=== PATIENT | female | born 1940 | race Caucasian/White ===

== ENCOUNTER 2017-08-04 20:30 | Outpatient (CLI) | payer MEDICARE, BC ==
--- OUTSIDE RECORDS SUMMARY | 2017-08-05 08:23 | XMS | Clinical Summary ---
:1940 Author Organization [facility] Address [address] [place] [address] Phone Care Team Providers Name Role Phone , Primary Care Provider Unavailable Allergies No Known Allergies Current Medications Not on file Active Problems Not on file Social History Tobacco Use Types Packs/Day Years Used Date Never Smoker Alcohol Use Drinks/Week oz/Week Comments Yes socially Sex Assigned at Date Recorded Not on file Last Filed Vital Signs Vital Sign Reading Time Taken Blood Pressure 148/71 06/03/2015 9:50 PM CDT Pulse 70 06/03/2015 9:50 PM CDT Temperature 36.7 C (98 F) 06/03/2015 9:50 PM CDT Respiratory Rate 20 06/03/2015 9:50 PM CDT Oxygen Saturation 95% 06/03/2015 9:50 PM CDT Inhaled Oxygen Concentration - - Weight 68.2 kg (150 lb 5 oz) 06/03/2015 9:50 PM CDT Height - - Body Mass Index - - Plan of Treatment Not on file Results Not on filefrom Last 3 Months
--- OUTSIDE RECORDS SUMMARY | 2017-08-05 08:23 | XMS | Clinical Summary ---
:1940 Author Organization [facility] Address [address] [place] [address] Phone Care Team Providers Name Role Phone , Primary Care Provider Unavailable Allergies Not on File Current Medications Not on file Active Problems Not on file Social History Tobacco Use Types Packs/Day Years Used Date Never Assessed Sex Assigned at Date Recorded Not on file Last Filed Vital Signs Not on file Plan of Treatment Not on file Results Not on filefrom Last 3 Months
== END 2017-08-04 20:31 | disposition home or self-care (01) ==
LOC: SLEEPLAB 20:30
PROVIDERS: ATTEND Internal Medicine
DX: G47.33 Obstructive sleep apnea (adult) (pediatric) (principal); R06.83 Snoring; F32.9 Major depressive disorder, single episode, unspecified; G47.00 Insomnia, unspecified
CPT/HCPCS: 95810

== ENCOUNTER 2017-08-19 20:30 | Outpatient (CLI) | payer MEDICARE, BC ==
--- OUTSIDE RECORDS SUMMARY | 2017-08-29 13:26 | XMS | Clinical Summary ---
:1940 Author Organization [facility] Address [address] [place] [address] Phone Care Team Providers Name Role Phone [...]
--- OUTSIDE RECORDS SUMMARY | 2017-08-29 13:26 | XMS | Clinical Summary ---
:1940 Author Organization [facility] Address [address] [place] [address] Phone Care Team Providers Name Role Phone [...]
== END 2017-08-19 20:31 | disposition home or self-care (01) ==
LOC: SLEEPLAB 20:30
PROVIDERS: ATTEND Internal Medicine
DX: G47.33 Obstructive sleep apnea (adult) (pediatric) (principal)
CPT/HCPCS: 95811

== ENCOUNTER 2017-09-21 13:16 | Outpatient (CLI) | payer MEDICARE, BC ==
--- OUTSIDE RECORDS SUMMARY | 2017-09-21 14:53 | XMS | Clinical Summary ---
:1940 Author Organization [facility] Address [address] [place] [address] Phone Care Team Providers Name Role Phone [...]
--- NOTE | 2017-09-21 15:41 | CT ---
CT OF THE CERVICAL SPINE: Date: 09-21-17 History: Cervical radiculopathy, right arm radiculopathy. Technique: Serial axial CT imaging 2 mm intervals from skull base through lung apices without contra st. Coronal and sagittal reformatted imaging obtained. FINDINGS: Incompletely imaged bilateral cochlear implants are present with associated partially imaged bilater al canal wall up mastoidectomies. Evaluation for central canal and/or neural foraminal stenosis is limited on routine CT. The occipital condyles, dense, C1-2 articulation, craniocervical junction, and cervicothoracic junct ion demonstrate no acute findings. No anterolisthesis or retrolisthesis is seen. There is mid cervical spine levoscoliosis present. The re is mild degenerative change at the atlantoaxial interspace. C2-3: No osseous cause of significant central canal or neural foraminal stenosis. C3-4: Mild right sided facet and uncal vertebral osteophyte formation with probable mild right sided neural foraminal stenosis. There is no osseous cause of significant central canal or left neural fo raminal stenosis. C4-5: Mild bilateral facet hypertrophy with no osseous cause of significant central canal or neural foraminal stenosis. C5-6: No osseous cause of significant central canal or neural foraminal stenosis. C6-7: No osseous cause of significant central canal or neural foraminal stenosis. C7-T1: There is prominent facet hypertrophic change on the left with mild associated left neural for aminal stenosis. There is no osseous cause of significant central canal or right neural foraminal st enosis. No acute osseous abnormality is seen. There is atherosclerotic calcification involving the proximal ECA on the right and the proximal ICA on the left. IMPRESSION: Multilevel degenerative change within the cervical spine as detailed above. If further evaluation fo r central canal and/or neural foraminal stenosis is clinically indicated, cervical spine CT myelogra m suggested. POS: [facility]
== END 2017-09-21 13:17 | disposition home or self-care (01) ==
LOC: TBSIIMAG 13:16
PROVIDERS: ATTEND Neurological Surgery
DX: M47.22 Other spondylosis with radiculopathy, cervical region (principal)
CPT/HCPCS: 72125

== ENCOUNTER 2017-10-06 12:26 | Outpatient (CLI) | payer MEDICARE, BC ==
--- NOTE | 2017-10-06 15:10 | RAD ---
ARTHROGRAM RIGHT SHOULDER: Date: 10-06-17 History: 77-year-old female with right shoulder pain. Patient has bilateral cochlear implants which preclude M RI. Technique: Signed informed consent obtained. Patient was placed supine on fluoroscopy table. Anterior skin of [facility] shoulder was prepped and draped in the usual sterile fashion. 25 gauge needle used to apply buffe red lidocaine superficial and deeply. 22 gauge spinal needle advanced into the intracapsular space at the anterior superior portion of the glenohumeral joint under brief, intermittent fluoroscopy. A tot al of 10 ml of normal saline solution containing dilute Isovue iodinated contrast, small amount of Li docaine and tiny amount of epinephrine was injected. Needle was removed. The patient tolerated the pr ocedure well. No complications. Patient was sent to CT. FINDINGS: [employer] images demonstrate a small focal calcification in the soft tissues directly inferiorly to the g lenohumeral joint. No high grade degenerative osseous changes of the glenohumeral joint. Mild to mode rate DJD of AC joint. No fracture or dislocation. Osteopenia. Post injection fluoroscopic images demonstrate good distribution of contrast within the shoulder join t capsule. There is abnormal extension of the contrast material into the subacromial/subdeltoid bursa . IMPRESSION: 1. Successful right shoulder arthrogram. 2. Full thickness rotator cuff tear. POS: [facility]
--- NOTE | 2017-10-06 15:44 | CT ---
CT ARTHROGRAM OF THE RIGHT SHOULDER 10/06/17 INDICATION: Right shoulder pain. FINDINGS: There is a full thickness tear of the supraspinatus with retraction of the tendon to the level of the glenohumeral joint. There is severe atrophy of the supraspinatus tendon. There is also full thicknes s tear component involving the anterior infraspinatus. There is mild muscular atrophy of the infraspi natus. There is some contrast extending into the anterior musculotendinous junction of the infraspina tus consistent with some tendon delamination from the full thickness tear of the anterior infraspinat us. Teres minor and subscapularis are intact. The biceps tendon is intact and is seen within the bici pital groove. There is moderate AC joint osteoarthrosis. There is a type II acromion. There is contra st seen throughout the subacromial subdeltoid bursa. The glenohumeral articular surface demonstrates some mild diffuse chondrosis. Visualized right lung is clear. IMPRESSION: 1. Massive rotator cuff tear with severe supraspinatus and mild infraspinatus muscular atrophy. 2. Moderate AC joint osteoarthrosis. 3. Mild glenohumeral chondrosis. POS: [facility]
== END 2017-10-06 12:27 | disposition home or self-care (01) ==
LOC: RAD 12:26
PROVIDERS: ATTEND Orthopaedic Surgery
DX: M25.511 Pain in right shoulder (principal); S46.011A Strain of muscle(s) and tendon(s) of the rotator cuff of right shoulder, initial encounter; M19.011 Primary osteoarthritis, right shoulder; M24.111 Other articular cartilage disorders, right shoulder
CPT/HCPCS: 23350

== ENCOUNTER 2018-01-13 16:19 | Outpatient (CLI) | payer MEDICARE, BC ==
[~2018-01-13 16:19] MED LIST: Iopamidol 370 76% 100 ML VIAL ONE
== END 2018-01-13 16:20 | disposition home or self-care (01) ==
LOC: BICCT 16:19
PROVIDERS: ATTEND Psychiatry & Neurology Neurology
DX: G25.2 Other specified forms of tremor (principal); G93.89 Other specified disorders of brain
CPT/HCPCS: 70496; 70498

== ENCOUNTER 2018-02-22 10:54 | Outpatient (CLI) | payer MEDICARE, BC | END 2018-02-22 10:55 | disposition home or self-care (01) | LOC: BICMAMMO 10:54 | PROVIDERS: ATTEND Obstetrics & Gynecology | DX: Z12.31 Encounter for screening mammogram for malignant neoplasm of breast (principal) | CPT/HCPCS: 77063; 77067 ==

== ENCOUNTER 2018-08-23 11:02 | Outpatient (CLI) | payer MEDICARE, BC ==
--- NOTE | 2018-08-23 13:11 | CT ---
CT LUMBAR SPINE WITHOUT CONTRAST: HISTORY: Pseudoarthrosis of the lumbar spine. COMPARISON: 08/26/2016 FINDINGS: There is stable posterior fusion hardware from L3 through S1. No perihardware lucency. Stable poste rior bone graft material. There is 3.1 mm of retrolisthesis of L2 upon L1, and 3.2 mm of anterolisth esis of L4 upon L5. Stable severe compression fracture with regards to L1. Stable associated vertebral plana and retropu lsion. Symmetric attenuation of the psoas muscles. The visualized solid organs have appropriate attenuation . No retroperitoneal mass, lymphadenopathy, or hematoma. Limited evaluation of the contents of the central spinal canal and neural foramina. A dorsal column stimulator is identified. The wires enter the thecal sac at approximately the T12-T1 1 disk space. T11-T12: No high-grade central canal stenosis or high-grade foraminal narrowing. T12-L1: No high-grade central canal stenosis. Moderate bilateral foraminal narrowing. L1: Moderate central canal stenosis due to retropulsion. L1-L2: Vacuum disk phenomenon. Moderate central canal stenosis. Severe right and moderate left for aminal narrowing. L2-L3: Vacuum disk phenomenon. No high-grade central canal stenosis. Moderate bilateral foraminal narrowing. L3-L4: Mild loss of disk space height. No significant central canal stenosis. Mild right and left foraminal narrowing. L4-L5: Posterior laminectomy defect. Bone graft material is identified at the operative site. No h igh-grade central canal stenosis. Mild bilateral foraminal narrowing. L5-S1: Vacuum disk phenomenon. There appears to be a central/right subarticular disk protrusion. T here maybe associated scar tissue. Ligamentum flavum thickening is noted. There may be mild to moder ate central canal stenosis. Evaluation is limited. Moderate right and moderate to severe left jose luis inal narrowing. IMPRESSION: 1. Stable fusion hardware involving the L3, L4, L5, and S1 levels. The left transpedicular screw is at the anterior margin of S1, similar to the previous examination. No definite perihardware lucency . 2. Stable compression fracture at L1 with associated retropulsion and resultant moderate central can al stenosis. 3. Significant neural foraminal narrowing at multiple levels, as detailed above. 4. Possible significant stenosis of the ventral thecal sac and the right subarticular zone at the L5 -S1 level. Abnormal soft tissue density may be due to disk material and/or scar tissue. POS: [facility]
== END 2018-08-23 11:03 | disposition home or self-care (01) ==
LOC: BICCT 11:02
PROVIDERS: ATTEND Anesthesiology Pain Medicine
DX: S32.009K Unspecified fracture of unspecified lumbar vertebra, subsequent encounter for fracture with nonunion (principal); M99.83 Other biomechanical lesions of lumbar region; M48.061 Spinal stenosis, lumbar region without neurogenic claudication; Z98.1 Arthrodesis status
CPT/HCPCS: 72131

== ENCOUNTER 2019-03-03 09:54 | Outpatient (CLI) | payer MEDICARE, BC ==
--- NOTE | 2019-03-03 13:33 | MMO ---
Bilateral MAMMO Bilat Screen [facility]. CLINICAL HISTORY: Patient is 78 years old and is seen for screening. The patient has no family history of breast cancer. The patient has no personal history of cancer. VIEWS: The views performed were: bilateral craniocaudal with tomosynthesis; bilateral mediolateral oblique with tomosynthesis; and bilateral exaggerated craniocaudal. FILMS COMPARED: The present examination has been compared to prior imaging studies performed at [facility] on 02/22/2018, and at [facility] on 11/21/2013, 11/23/2013, 05/14/2014, 01/16/2016, 01/22/2016 and 01/19/2017. MAMMOGRAM FINDINGS: The breasts are heterogeneously dense, which could obscure a lesion on mammography. There are benign appearing calcifications seen in both breasts. There are no suspicious masses, suspicious calcifications, or new areas of architectural distortion. IMPRESSION: THERE IS NO MAMMOGRAPHIC EVIDENCE OF MALIGNANCY. A ROUTINE FOLLOW-UP MAMMOGRAM IN 1 YEAR IS RECOMMENDED. THE RESULTS OF THIS EXAM WERE SENT TO THE PATIENT. ACR BI-RADS Category 2 - Benign finding MAMMOGRAPHY NOTE: 1. A negative mammogram report should not delay a biopsy if a dominant of clinically suspicious mass is present. 2. Approximately 10% to 15% of breast cancers are not detected by mammography. 3. Adenosis and dense breasts may obscure an underlying neoplasm.
== END 2019-03-03 09:55 | disposition home or self-care (01) ==
LOC: BICMAMMO 09:54
PROVIDERS: ATTEND Obstetrics & Gynecology
DX: Z12.31 Encounter for screening mammogram for malignant neoplasm of breast (principal)
CPT/HCPCS: 77063; 77067

== ENCOUNTER 2019-08-07 15:01 | Outpatient (CLI) | payer MEDICARE, BC ==
--- NOTE | 2019-08-07 16:17 | BD ---
DEXA bone density examination HISTORY: 78-year-old postmenopausal female for screening COMPARISON: None FINDINGS: Right forearm 1/3: 0.56 g/sq cm; T score -2.2 MID: 0.464 g/sq cm; T score -2.6 UD: 0.351 g/sq cm; T score -1.6 Total: 0.452 g/sq cm; T score -2.4 Left forearm 1/3: 0.518 g/sq cm; T score -2.9 MID: 0.449 g/sq cm; T score -2.9 UD: 0.332 g/sq cm; T score -1.9 Total: 0.4-7 g/sq cm; T score -2.8 IMPRESSION: 1. Moderate osteopenia of the distal bilateral forearms suggesting a 4 fold increased risk for fractu re. 2. This patient meets WHO criteria for osteoporosis.
== END 2019-08-07 15:02 | disposition home or self-care (01) ==
LOC: BICMAMMO 15:01
PROVIDERS: ATTEND Internal Medicine Rheumatology
DX: M81.0 Age-related osteoporosis without current pathological fracture (principal); M85.89 Other specified disorders of bone density and structure, multiple sites
CPT/HCPCS: 77080

== ENCOUNTER 2019-08-24 15:24 | Outpatient (CLI) | payer MEDICARE, BC ==
--- NOTE | 2019-08-24 17:26 | RAD ---
THORACIC SPINE: 08/24/19 Two views. HISTORY: Age-related osteoporosis. Pedicle screws and rods transfix the lower thoracic and upper lumbar spine. The visualized thoracic vertebrae maintain height and alignment. Mild to moderate degenerative spurring is seen. No significa nt osteopenia. No evidence of compression deformity. IMPRESSION: Postoperative changes with pedicle screws and rods transfixing lower thoracic and upper lumbar spine. There appears to be a compression deformity at T12 which appears stable when compared to prior exams of 01/18/19. No evidence of acute compression. Degenerative changes as described. POS: [facility]
== END 2019-08-24 15:25 | disposition home or self-care (01) ==
LOC: BICRAD 15:24
PROVIDERS: ATTEND Internal Medicine Rheumatology
DX: M81.0 Age-related osteoporosis without current pathological fracture (principal); M47.814 Spondylosis without myelopathy or radiculopathy, thoracic region; Z98.890 Other specified postprocedural states
CPT/HCPCS: 72070

== ENCOUNTER 2021-04-24 15:47 | Outpatient (CLI) | payer MEDICARE, BC | END 2021-04-24 15:48 | disposition home or self-care (01) | LOC: BICMAMMO 15:47 | PROVIDERS: ATTEND Obstetrics & Gynecology | DX: Z12.31 Encounter for screening mammogram for malignant neoplasm of breast (principal) | CPT/HCPCS: 77063; 77067 ==

== ENCOUNTER 2021-05-01 21:29 | Emergency (ER) | payer MEDICARE, BC | END 2021-05-02 00:15 | disposition home or self-care (01) | LOC: ERS 21:29 | DX: M79.89 Other specified soft tissue disorders (principal); E03.9 Hypothyroidism, unspecified; Z79.899 Other long term (current) drug therapy; Z79.82 Long term (current) use of aspirin ==

== ENCOUNTER 2021-08-07 14:35 | Outpatient (CLI) | payer MEDICARE, BC | END 2021-08-07 14:36 | disposition home or self-care (01) | LOC: BICMAMMO 14:35 | PROVIDERS: ATTEND Internal Medicine Rheumatology | DX: M81.0 Age-related osteoporosis without current pathological fracture (principal) | CPT/HCPCS: 77080 ==

== ENCOUNTER 2021-08-14 14:44 | Outpatient (CLI) | payer MEDICARE, BC | END 2021-08-14 14:45 | disposition home or self-care (01) | LOC: BICCT 14:44 | PROVIDERS: ATTEND Psychiatry & Neurology Neurology | DX: R41.3 Other amnesia (principal) | CPT/HCPCS: 70450 ==

== ENCOUNTER 2021-12-30 14:10 | Emergency (ER) | payer MEDICARE, BC | END 2021-12-30 18:06 | disposition home or self-care (01) | LOC: ERS 14:10 | DX: S51.011A Laceration without foreign body of right elbow, initial encounter (principal); S91.011A Laceration without foreign body, right ankle, initial encounter; S16.1XXA Strain of muscle, fascia and tendon at neck level, initial encounter; S50.11XA Contusion of right forearm, initial encounter; W17.89XA Other fall from one level to another, initial encounter; E03.9 Hypothyroidism, unspecified | CPT/HCPCS: 70450; 72125 ==

== ENCOUNTER 2022-04-13 16:13 | Emergency (ER) | payer OTHER, MEDICARE, BC ==
[2022-04-13] MEDS ORDERED: Ondansetron PF 4 MG/2 ML Vial ONE (17:01)
[2022-04-13 17:06] LABS: #Eosinphils 0.1 thou/uL (0.0-0.7); #Lymphocytes 0.8 thou/uL (1.20-3.40); #Monocytes 0.4 thou/uL (0.11-0.59); #Neutrophils 5.3 thou/uL (1.40-6.50); %Basophils 0.6 % (0.0-1.0); %Eosinophils 1.3 % (0.0-10.0); %Lymphocytes 12.1 % (21.0-51.0); %Monocytes 6.4 % (0.0-10.0); %Neutrophils 79.7 % (42.0-75.0); Hemoglobin 11.6 g/dL (12.0-16.0); Mean Corpuscular HGB CONC 31.7 g/dL (32.0-36.0); Mean Corpuscular Hemoglobin 31.3 pg (27.0-31.0); Mean Corpuscular Volume 98.7 fL (78.0-98.0); Mean Platelet Volume 7.2 fL (7.4-10.4); Platelet Count 230 thou/uL (130-400); RBC Distribution Width 13.1 % (11.5-14.5); Red Blood Cell (RBC) Count 3.69 mill/uL (4.20-5.40); White Blood Cell (WBC) Count 6.7 thou/uL (4.8-10.8)
[2022-04-13 17:29] LABS: ALT (SGPT) 10 U/L (8-55); AST (SGOT) 20 U/L (5-34); Albumin 3.9 g/dL (3.4-4.8); Alkaline Phosphatase 41 U/L (40-110); Anion Gap 12 mmol/L (10-20); BUN (Urea Nitrogen) 19 mg/dL (9.8-20.1); Bilirubin, Total 0.5 mg/dL (0.2-1.2); Calc. Creatinine Clearance 0 mL/min (70-130); Calcium 9.2 mg/dL (7.8-10.44); Carbon Dioxide 27 mmol/L (23-31); Chloride 102 mmol/L (98-107); Globulin 2.4 g/dL (2.4-3.5); Glucose 89 mg/dL (83-110); Potassium 4.3 mmol/L (3.5-5.1); Protein, Total 6.3 g/dL (5.8-8.1); Sodium 137 mmol/L (136-145)
== END 2022-04-13 19:40 | disposition home or self-care (01) ==
LOC: ERS 16:13
DX: E86.0 Dehydration (principal); Z04.3 Encounter for examination and observation following other accident; E03.9 Hypothyroidism, unspecified; Z79.899 Other long term (current) drug therapy; Z79.82 Long term (current) use of aspirin
CPT/HCPCS: 36415; 70450; 80053; 84484; 85025; 93005; 94760; J2405

== ENCOUNTER 2022-12-28 20:15 | Inpatient (IN) | payer MEDICARE, BC ==
[2022-12-28] MEDS ORDERED: cefTRIAXone\\ROCEPHIN 1 GM VIAL ONE (21:15)
[2022-12-28 21:33] LABS: #Lymphocytes 0.4 thou/uL (1.20-3.40); #Monocytes 0.9 thou/uL (0.11-0.59); #Neutrophils 11.2 thou/uL (1.40-6.50); %Basophils 0.2 % (0.0-1.0); %Eosinophils 0.3 % (0.0-10.0); %Lymphocytes 3.3 % (21.0-51.0); %Monocytes 7.1 % (0.0-10.0); Hemoglobin 10.5 g/dL (12.0-16.0); Mean Corpuscular Hemoglobin 32.1 pg (27.0-31.0); Mean Corpuscular Volume 97.2 fl (78.0-98.0); Mean Platelet Volume 7.4 fL (7.4-10.4); Platelet Count 281 10x3/uL (130-400); RBC Distribution Width 12.8 % (11.5-14.5); Red Blood Cell (RBC) Count 3.28 mill/uL (4.20-5.40); White Blood Cell (WBC) Count 12.6 10x3/uL (4.8-10.8)
[2022-12-28 21:52] LABS: ALT (SGPT) 13 U/L (8-55); AST (SGOT) 21 U/L (5-34); Albumin 3.6 g/dL (3.4-4.8); Alkaline Phosphatase 52 U/L (40-110); Anion Gap 12 mmol/L (10-20); BUN (Urea Nitrogen) 24 mg/dL (9.8-20.1); Bilirubin, Total 0.6 mg/dL (0.2-1.2); Calc. Creatinine Clearance 0 mL/min (70-130); Calcium 9.9 mg/dL (7.8-10.44); Carbon Dioxide 27 mmol/L (23-31); Chloride 102 mmol/L (98-107); Estimated GFR 36; Glucose 129 mg/dL (83-110); Lipase 13 U/L (8-78); Magnesium 1.8 mg/dL (1.6-2.6); Potassium 4.4 mmol/L (3.5-5.1); Protein, Total 6.6 g/dL (5.8-8.1); Sodium 137 mmol/L (136-145)
[2022-12-28 22:40] LABS: Bacteria/HPF 4+ HPF (None Seen); Bilirubin Negative (Negative); Blood, Urine Negative (Negative); Clarity Turbid (Clear); Glucose, Urine (Dipstick) Normal (Negative); Ketone, Urine Negative (Negative); Leukocyte 250 Leu/uL (Negative); Nitrite 1+ (Negative); Protein, Urine (Dipstick) 20 mg/dL (Neg-Trace); RBC/HPF 0-3 HPF (0-3); Specific Gravity, Urine 1.014 (1.002-1.036); Squamous Epithelial 0-3 HPF (0-3); Transitional Epithelial 0-3 HPF (None Seen); Urobilinogen Normal mg/dL (Less than 2); WBC/HPF 21-50 HPF (0-3); pH, Urine 6.5 (5.0-9.0)
[2022-12-28 22:53] LABS: SARS-CoV-2 NAA Rapid Test Not Detected (NotDetected)
[2022-12-29] MEDS ORDERED: Ondansetron ODT 4 MG TAB PO PRN (00:03)
[2022-12-29] MEDS ORDERED: Senokot S 8.6-50 MG TAB PO PRN (00:03)
[2022-12-29] MEDS ORDERED: Lactated Ringer's 1,000 ML IV SCH (00:15)
[2022-12-29] MEDS: DULoxetine 30 MG CAP PO SCH (08:12)
[2022-12-29] MEDS: Famotidine 20 MG TAB PO SCH (08:12)
[2022-12-29] MEDS: Levothyroxine Sodium 100 MCG TAB PO SCH (08:12)
[2022-12-29 08:21] VITALS: BMI 30.4
[2022-12-29 09:15] LABS: #Lymphocytes 0.5 thou/uL (1.20-3.40); %Basophils 0.2 % (0.0-1.0); %Eosinophils 0.3 % (0.0-10.0); %Monocytes 7.3 % (0.0-10.0); %Neutrophils 88.1 % (42.0-75.0); Hemoglobin 10.1 g/dL (12.0-16.0); Mean Corpuscular HGB CONC 31.4 g/dL (32.0-36.0); Mean Corpuscular Volume 98.6 fl (78.0-98.0); Mean Platelet Volume 7.2 fL (7.4-10.4); Platelet Count 260 10x3/uL (130-400); RBC Distribution Width 12.7 % (11.5-14.5); Red Blood Cell (RBC) Count 3.26 mill/uL (4.20-5.40); White Blood Cell (WBC) Count 13.6 10x3/uL (4.8-10.8)
[2022-12-29 09:34] LABS: Anion Gap 10 mmol/L (10-20); BUN (Urea Nitrogen) 21 mg/dL (9.8-20.1); Calc. Creatinine Clearance 34 mL/min (70-130); Calcium 9.2 mg/dL (7.8-10.44); Carbon Dioxide 26 mmol/L (23-31); Chloride 103 mmol/L (98-107); Estimated GFR 38; Glucose 105 mg/dL (83-110); Potassium 4.3 mmol/L (3.5-5.1); Sodium 135 mmol/L (136-145)
[2022-12-29] MEDS: Acetaminophen 325 MG TAB PO PRN (15:56)
[2022-12-29] MEDS ORDERED: Ketorolac Tromethamine 30 MG/ML VIAL IVP PRN ×2 (16:57→17:14)
[2022-12-29] MEDS ORDERED: Amlodipine 5 MG TAB PO SCH (17:00)
[2022-12-29] MEDS: Sodium Chloride 0.9% 1,000 ML IV SCH (17:19)
[2022-12-29] MEDS ORDERED: cefTRIAXone\\ROCEPHIN 1 GM in Sodium Chloride 0.9% 100 ML IVPB SCH (21:00)
[2022-12-29] MEDS: Atorvastatin Calcium 10 MG TAB PO SCH ×2 (21:19→21:25)
[2022-12-29] MEDS: Polyethylene Glycol 3350 17 GM Packet PO SCH (21:19)
[2022-12-30 05:56] LABS: #Eosinphils 0.1 thou/uL (0.0-0.7); #Lymphocytes 0.7 thou/uL (1.20-3.40); #Monocytes 0.9 thou/uL (0.11-0.59); #Neutrophils 10.4 thou/uL (1.40-6.50); %Basophils 0.3 % (0.0-1.0); %Eosinophils 0.4 % (0.0-10.0); %Lymphocytes 5.6 % (21.0-51.0); %Monocytes 7.8 % (0.0-10.0); %Neutrophils 85.9 % (42.0-75.0); Hemoglobin 10.1 g/dL (12.0-16.0); Mean Corpuscular HGB CONC 32.4 g/dL (32.0-36.0); Mean Corpuscular Hemoglobin 31.8 pg (27.0-31.0); Mean Corpuscular Volume 98.2 fl (78.0-98.0); Mean Platelet Volume 7.5 fL (7.4-10.4); Platelet Count 237 10x3/uL (130-400); RBC Distribution Width 12.7 % (11.5-14.5); Red Blood Cell (RBC) Count 3.18 mill/uL (4.20-5.40); White Blood Cell (WBC) Count 12.1 10x3/uL (4.8-10.8)
[2022-12-30 06:17] LABS: Anion Gap 10 mmol/L (10-20); BUN (Urea Nitrogen) 18 mg/dL (9.8-20.1); Calc. Creatinine Clearance 31 mL/min (70-130); Calcium 9.2 mg/dL (7.8-10.44); Carbon Dioxide 25 mmol/L (23-31); Chloride 102 mmol/L (98-107); Estimated GFR 33; Glucose 109 mg/dL (83-110); Potassium 4.1 mmol/L (3.5-5.1); Sodium 133 mmol/L (136-145)
[2022-12-30] MEDS: Levothyroxine Sodium 100 MCG TAB PO SCH (07:11)
[2022-12-30] MEDS: Sodium Chloride 0.9% 1,000 ML IV SCH ×2 (07:11→21:08)
[2022-12-30] MEDS ORDERED: Amlodipine 5 MG TAB PO SCH (09:00)
[2022-12-30] MEDS: Famotidine 20 MG TAB PO SCH (09:01)
[2022-12-30] MEDS: DULoxetine 30 MG CAP PO SCH (09:01)
[2022-12-30] MEDS ORDERED: Senokot S 8.6-50 MG TAB PO PRN (09:30)
[2022-12-30] MEDS: Atorvastatin Calcium 10 MG TAB PO SCH (21:07)
[2022-12-30] MEDS: Polyethylene Glycol 3350 17 GM Packet PO SCH (21:07)
[2022-12-30] MEDS: cefTRIAXone\\ROCEPHIN 2 GM in Sodium Chloride 0.9% 100 ML IVPB SCH (21:08)
[2022-12-31 05:31] LABS: #Eosinphils 0.1 thou/uL (0.0-0.7); #Lymphocytes 0.8 thou/uL (1.20-3.40); #Monocytes 1.1 thou/uL (0.11-0.59); #Neutrophils 10.3 thou/uL (1.40-6.50); %Basophils 0.3 % (0.0-1.0); %Eosinophils 0.8 % (0.0-10.0); %Lymphocytes 6.6 % (21.0-51.0); %Monocytes 8.9 % (0.0-10.0); %Neutrophils 83.5 % (42.0-75.0); Mean Corpuscular HGB CONC 32.7 g/dL (32.0-36.0); Mean Corpuscular Hemoglobin 32.1 pg (27.0-31.0); Mean Corpuscular Volume 98.1 fl (78.0-98.0); Mean Platelet Volume 7.7 fL (7.4-10.4); Platelet Count 247 10x3/uL (130-400); RBC Distribution Width 12.7 % (11.5-14.5); White Blood Cell (WBC) Count 12.3 10x3/uL (4.8-10.8)
[2022-12-31] MEDS: Levothyroxine Sodium 100 MCG TAB PO SCH (05:35)
[2022-12-31 05:52] LABS: Anion Gap 11 mmol/L (10-20); BUN (Urea Nitrogen) 16 mg/dL (9.8-20.1); Calc. Creatinine Clearance 34 mL/min (70-130); Calcium 9.3 mg/dL (7.8-10.44); Carbon Dioxide 25 mmol/L (23-31); Chloride 101 mmol/L (98-107); Estimated GFR 37; Glucose 96 mg/dL (83-110); Potassium 3.9 mmol/L (3.5-5.1); Sodium 133 mmol/L (136-145)
[2022-12-31] MEDS: Amlodipine 5 MG TAB PO SCH (09:22)
[2022-12-31] MEDS: Famotidine 20 MG TAB PO SCH (09:22)
[2022-12-31] MEDS: DULoxetine 30 MG CAP PO SCH (09:22)
[2022-12-31] MEDS: Sodium Chloride 0.9% 1,000 ML IV SCH ×2 (09:23→21:20)
[2022-12-31] MEDS: Atorvastatin Calcium 10 MG TAB PO SCH (21:19)
[2022-12-31] MEDS: Polyethylene Glycol 3350 17 GM Packet PO SCH (21:19)
[2022-12-31] MEDS: cefTRIAXone\\ROCEPHIN 2 GM in Sodium Chloride 0.9% 100 ML IVPB SCH (21:20)
[2023-01-01 05:06] LABS: #Eosinphils 0.1 thou/uL (0.0-0.7); #Lymphocytes 0.5 thou/uL (1.20-3.40); #Monocytes 1.2 thou/uL (0.11-0.59); #Neutrophils 8.9 thou/uL (1.40-6.50); %Basophils 0.2 % (0.0-1.0); %Eosinophils 0.8 % (0.0-10.0); %Lymphocytes 4.3 % (21.0-51.0); %Monocytes 11.3 % (0.0-10.0); %Neutrophils 83.4 % (42.0-75.0); Hemoglobin 10.4 g/dL (12.0-16.0); Mean Corpuscular HGB CONC 32.8 g/dL (32.0-36.0); Mean Corpuscular Hemoglobin 31.9 pg (27.0-31.0); Mean Corpuscular Volume 97.1 fl (78.0-98.0); Mean Platelet Volume 7.6 fL (7.4-10.4); Platelet Count 270 10x3/uL (130-400); RBC Distribution Width 12.6 % (11.5-14.5); Red Blood Cell (RBC) Count 3.26 mill/uL (4.20-5.40); White Blood Cell (WBC) Count 10.6 10x3/uL (4.8-10.8)
[2023-01-01 05:26] LABS: Anion Gap 13 mmol/L (10-20); BUN (Urea Nitrogen) 15 mg/dL (9.8-20.1); Calc. Creatinine Clearance 39 mL/min (70-130); Calcium 9.6 mg/dL (7.8-10.44); Carbon Dioxide 24 mmol/L (23-31); Chloride 101 mmol/L (98-107); Estimated GFR 44; Glucose 108 mg/dL (83-110); Potassium 3.9 mmol/L (3.5-5.1); Sodium 134 mmol/L (136-145)
[2023-01-01] MEDS: Levothyroxine Sodium 100 MCG TAB PO SCH (05:59)
[2023-01-01] MEDS: Famotidine 20 MG TAB PO SCH (09:38)
[2023-01-01] MEDS: Amlodipine 5 MG TAB PO SCH (09:38)
[2023-01-01] MEDS: DULoxetine 30 MG CAP PO SCH (09:38)
[2023-01-01] MEDS: Sodium Chloride 0.9% 1,000 ML IV SCH ×3 (09:46→22:57)
[2023-01-01] MEDS ORDERED: Meropenem 500 MG in Sodium Chloride 0.9% 100 ML IVPB SCH (14:00)
[2023-01-01] MEDS: Meropenem 500 MG in Sodium Chloride 0.9% 100 ML IVPB SCH (18:57)
[2023-01-01] MEDS ORDERED: Ketorolac Tromethamine 30 MG/ML VIAL IVP SCH (19:00)
[2023-01-01 19:08] LABS: #Eosinphils 0.1 thou/uL (0.0-0.7); #Lymphocytes 0.6 thou/uL (1.20-3.40); #Monocytes 0.1 thou/uL (0.11-0.59); #Neutrophils 5.2 thou/uL (1.40-6.50); %Basophils 0.1 % (0.0-1.0); %Eosinophils 1.6 % (0.0-10.0); %Lymphocytes 10.5 % (21.0-51.0); %Monocytes 0.7 % (0.0-10.0); Hemoglobin 11.6 g/dL (12.0-16.0); Mean Corpuscular Hemoglobin 32.3 pg (27.0-31.0); Mean Corpuscular Volume 97.8 fl (78.0-98.0); Mean Platelet Volume 7.6 fL (7.4-10.4); Platelet Count 285 10x3/uL (130-400); RBC Distribution Width 12.6 % (11.5-14.5); Red Blood Cell (RBC) Count 3.58 mill/uL (4.20-5.40)
[2023-01-01] MEDS ORDERED: Sodium Chloride 0.9% 1,000 ML IV SCH ×2 (19:15→21:30)
[2023-01-01 19:30] LABS: ALT (SGPT) 21 U/L (8-55); AST (SGOT) 26 U/L (5-34); Albumin 3.6 g/dL (3.4-4.8); Alkaline Phosphatase 76 U/L (40-110); Anion Gap 18 mmol/L (10-20); BUN (Urea Nitrogen) 19 mg/dL (9.8-20.1); Bilirubin, Total 0.4 mg/dL (0.2-1.2); Calc. Creatinine Clearance 32 mL/min (70-130); Calcium 9.7 mg/dL (7.8-10.44); Carbon Dioxide 20 mmol/L (23-31); Chloride 100 mmol/L (98-107); Estimated GFR 34; Globulin 3.6 g/dL (2.4-3.5); Glucose 89 mg/dL (83-110); Potassium 4.3 mmol/L (3.5-5.1); Protein, Total 7.2 g/dL (5.8-8.1); Sodium 134 mmol/L (136-145)
[2023-01-01] MEDS: Atorvastatin Calcium 10 MG TAB PO SCH (21:39)
[2023-01-01] MEDS: Polyethylene Glycol 3350 17 GM Packet PO SCH (21:39)
[2023-01-01 22:23] LABS: Lactic Acid 0.7 mmol/L (0.5-2.2)
[2023-01-02] MEDS: Levothyroxine Sodium 100 MCG TAB PO SCH (05:17)
[2023-01-02] MEDS: Meropenem 500 MG in Sodium Chloride 0.9% 100 ML IVPB SCH ×3 (05:17→21:49)
[2023-01-02 05:38] LABS: #Eosinphils 0.1 thou/uL (0.0-0.7); #Lymphocytes 0.7 thou/uL (1.20-3.40); #Monocytes 1.2 thou/uL (0.11-0.59); #Neutrophils 11.5 thou/uL (1.40-6.50); %Basophils 0.2 % (0.0-1.0); %Eosinophils 0.9 % (0.0-10.0); %Lymphocytes 5.5 % (21.0-51.0); %Monocytes 8.7 % (0.0-10.0); %Neutrophils 84.8 % (42.0-75.0); Hemoglobin 11.8 g/dL (12.0-16.0); Mean Corpuscular HGB CONC 32.9 g/dL (32.0-36.0); Mean Corpuscular Hemoglobin 32.4 pg (27.0-31.0); Mean Corpuscular Volume 98.5 fl (78.0-98.0); Mean Platelet Volume 7.8 fL (7.4-10.4); Platelet Count 260 10x3/uL (130-400); RBC Distribution Width 12.9 % (11.5-14.5); Red Blood Cell (RBC) Count 3.63 mill/uL (4.20-5.40); White Blood Cell (WBC) Count 13.6 10x3/uL (4.8-10.8)
[2023-01-02 05:52] LABS: Anion Gap 12 mmol/L (10-20); BUN (Urea Nitrogen) 18 mg/dL (9.8-20.1); Calc. Creatinine Clearance 34 mL/min (70-130); Calcium 9.5 mg/dL (7.8-10.44); Carbon Dioxide 23 mmol/L (23-31); Chloride 107 mmol/L (98-107); Estimated GFR 38; Glucose 106 mg/dL (83-110); Potassium 4.5 mmol/L (3.5-5.1); Sodium 137 mmol/L (136-145)
[2023-01-02] MEDS: DULoxetine 30 MG CAP PO SCH (08:37)
[2023-01-02] MEDS: Amlodipine 5 MG TAB PO SCH (08:37)
[2023-01-02] MEDS: Sodium Chloride 0.9% 1,000 ML IV SCH (19:56)
[2023-01-02] MEDS: Atorvastatin Calcium 10 MG TAB PO SCH (21:49)
[2023-01-02] MEDS: Polyethylene Glycol 3350 17 GM Packet PO SCH (21:49)
[2023-01-02] MEDS: Acetaminophen 325 MG TAB PO PRN (21:49)
[2023-01-03] MEDS: Levothyroxine Sodium 100 MCG TAB PO SCH (05:57)
[2023-01-03] MEDS: Meropenem 500 MG in Sodium Chloride 0.9% 100 ML IVPB SCH ×3 (05:58→21:25)
[2023-01-03] MEDS: DULoxetine 30 MG CAP PO SCH (08:16)
[2023-01-03] MEDS: Amlodipine 5 MG TAB PO SCH (08:16)
[2023-01-03] MEDS: Acetaminophen 325 MG TAB PO PRN ×2 (14:19→21:26)
[2023-01-03] MEDS: Sodium Chloride 0.9% 1,000 ML IV SCH (16:08)
[2023-01-03] MEDS: Atorvastatin Calcium 10 MG TAB PO SCH (21:26)
[2023-01-03] MEDS: Polyethylene Glycol 3350 17 GM Packet PO SCH (21:26)
[2023-01-04] MEDS: Meropenem 500 MG in Sodium Chloride 0.9% 100 ML IVPB SCH (06:27)
[2023-01-04] MEDS: Levothyroxine Sodium 100 MCG TAB PO SCH (06:27)
[2023-01-04] MEDS: Amlodipine 5 MG TAB PO SCH (08:23)
[2023-01-04] MEDS: DULoxetine 30 MG CAP PO SCH (08:23)
[2023-01-04 17:23] VITALS: BP 130/79; TEMP 98.6
[2023-01-04] MEDS ORDERED: Meropenem 500 MG in Sodium Chloride 0.9% 100 ML IVPB SCH (18:00)
== END 2023-01-04 18:30 | DRG 871 ==
LOC: ERS 20:15 → ERHOLD 23:12 → MSONC 12-29 08:02 → OBSVTOIN 12-29 14:18
PROVIDERS: ADMIT Student in an Organized Health Care Education/Training Program; ATTEND Internal Medicine
DX: A41.51 Sepsis due to Escherichia coli [E. coli] (principal); G93.41 Metabolic encephalopathy; N39.0 Urinary tract infection, site not specified; N17.9 Acute kidney failure, unspecified; Z16.24 Resistance to multiple antibiotics; Z20.822 Contact with and (suspected) exposure to COVID-19; K21.9 Gastro-esophageal reflux disease without esophagitis; E03.9 Hypothyroidism, unspecified; N18.9 Chronic kidney disease, unspecified; Z79.890 Hormone replacement therapy; Z90.710 Acquired absence of both cervix and uterus; Z79.82 Long term (current) use of aspirin; Z79.899 Other long term (current) drug therapy
CPT/HCPCS: 36415; 36416; 51701; 71045; 80048; 80053; 81003; 81015; 83605; 83690; 83735; 83880; 84484; 85025; 87040; 87077; 87086; 87149; 87186; 93005; 93010; 96361; 96365; 96372; G0378; J0696; J1650; J1885; J2185; J3490; J7050; J7120

== ENCOUNTER 2023-05-13 12:15 | Outpatient (CLI) | payer MEDICARE, BC | END 2023-05-13 12:16 | disposition home or self-care (01) | PROVIDERS: ATTEND Psychiatry & Neurology Neurology | DX: I49.9 Cardiac arrhythmia, unspecified (principal) | CPT/HCPCS: 93225; 93226 ==

== ENCOUNTER 2023-06-22 11:10 | Emergency (ER) | payer MEDICARE, BC ==
[2023-06-22 12:06] LABS: #Monocytes 0.9 thou/uL (0.11-0.59); #Neutrophils 8.6 thou/uL (1.40-6.50); %Basophils 0.3 % (0.0-1.0); %Eosinophils 0.3 % (0.0-10.0); Hematocrit 31.9 % (36.0-47.0); Hemoglobin 10.2 g/dL (12.0-16.0); Mean Corpuscular Hemoglobin 30.4 pg (27.0-31.0); Mean Corpuscular Volume 95.2 fl (78.0-98.0); Mean Platelet Volume 9.7 fL (7.4-10.4); Platelet Count 281 10x3/uL (130-400); RBC Distribution Width 14.4 % (11.5-14.5); Red Blood Cell (RBC) Count 3.35 mill/uL (4.20-5.40); White Blood Cell (WBC) Count 10.1 10x3/uL (4.8-10.8)
[2023-06-22 12:38] LABS: ALT (SGPT) 7 U/L (8-55); AST (SGOT) 13 U/L (5-34); Albumin 3.8 g/dL (3.4-4.8); Alkaline Phosphatase 58 U/L (40-110); Anion Gap 14 mmol/L (10-20); BUN (Urea Nitrogen) 21 mg/dL (9.8-20.1); Bilirubin, Total 0.5 mg/dL (0.2-1.2); CK (CPK) 26 U/L (29-168); Calc. Creatinine Clearance 0 mL/min (70-130); Calcium 9.5 mg/dL (7.8-10.44); Carbon Dioxide 24 mmol/L (23-31); Chloride 103 mmol/L (98-107); Estimated GFR 31; Globulin 3.5 g/dL (2.4-3.5); Glucose 118 mg/dL (83-110); Lipase 7 U/L (8-78); Magnesium 2.1 mg/dL (1.6-2.6); Potassium 4.4 mmol/L (3.5-5.1); Protein, Total 7.3 g/dL (5.8-8.1); Sodium 137 mmol/L (136-145)
[2023-06-22 12:40] LABS: Troponin I Less than 0.010 ng/mL (< 0.028)
[2023-06-22 14:07] LABS: Bacteria/HPF 3+ HPF (None Seen); Bilirubin Negative (Negative); Blood, Urine 1+ (Negative); CAUTI Indications for Culture Dysuria,urgency,freq; Clarity Extra Turbid (Clear); Glucose, Urine (Dipstick) Normal (Negative); Ketone, Urine Negative (Negative); Leukocyte 500 Leu/uL (Negative); Nitrite Negative (Negative); Protein, Urine (Dipstick) 100 mg/dL (Neg-Trace); Specific Gravity, Urine 1.015 (1.002-1.036); Transitional Epithelial 0-3 HPF (None Seen); Urobilinogen Normal mg/dL (Less than 2); WBC/HPF Greater than 50 HPF (0-3)
[2023-06-22 14:09] LABS: Urine Culture Reflex Yes Yes
== END 2023-06-22 15:00 | disposition home or self-care (01) ==
LOC: ERS 11:10
DX: N39.0 Urinary tract infection, site not specified (principal); E03.9 Hypothyroidism, unspecified; K21.9 Gastro-esophageal reflux disease without esophagitis; Z79.899 Other long term (current) drug therapy
CPT/HCPCS: 80053; 81001; 82550; 83690; 83735; 84484; 85025; 87077; 87086; 93005

== ENCOUNTER 2023-06-23 03:57 | Inpatient (IN) | payer MEDICARE, BC ==
[2023-06-23 04:28] LABS: #Eosinphils 0.1 thou/uL (0.0-0.7); #Monocytes 0.4 thou/uL (0.11-0.59); #Neutrophils 9.4 thou/uL (1.40-6.50); %Basophils 0.2 % (0.0-1.0); %Eosinophils 0.5 % (0.0-10.0); %Lymphocytes 1.6 % (21.0-51.0); %Neutrophils 93.3 % (42.0-75.0); Hematocrit 32.6 % (36.0-47.0); Hemoglobin 10.1 g/dL (12.0-16.0); Mean Corpuscular Hemoglobin 30.1 pg (27.0-31.0); Mean Platelet Volume 9.9 fL (7.4-10.4); Platelet Count 272 10x3/uL (130-400); RBC Distribution Width 14.3 % (11.5-14.5); Red Blood Cell (RBC) Count 3.36 mill/uL (4.20-5.40)
[2023-06-23] MEDS ORDERED: cefTRIAXone (ROCEPHIN) 1 GM VIAL ONE (04:36)
[2023-06-23 04:56] LABS: Albumin 3.8 g/dL (3.4-4.8); Calcium 9.4 mg/dL (7.8-10.44); Chloride 104 mmol/L (98-107); Potassium 3.9 mmol/L (3.5-5.1); Sodium 137 mmol/L (136-145)
[2023-06-23 05:03] LABS: Alkaline Phosphatase 58 U/L (40-110); Anion Gap 13 mmol/L (10-20); Bilirubin, Total 0.5 mg/dL (0.2-1.2); Calc. Creatinine Clearance 0 mL/min (70-130); Carbon Dioxide 24 mmol/L (23-31); Estimated GFR 32; Globulin 3.5 g/dL (2.4-3.5); Glucose 137 mg/dL (83-110); Protein, Total 7.3 g/dL (5.8-8.1)
[2023-06-23 06:16] LABS: BUN (Urea Nitrogen) 27 mg/dL (9.8-20.1)
[2023-06-23 06:17] LABS: ALT (SGPT) 12 U/L (8-55); AST (SGOT) 24 U/L (5-34)
[2023-06-23] MEDS ORDERED: Ondansetron ODT 4 MG TAB PO PRN (08:26)
[2023-06-23] MEDS ORDERED: Ondansetron PF 4 MG/2 ML Vial IVP PRN (08:26)
[2023-06-23] MEDS: Sodium Chloride 0.9% 1,000 ML IV SCH (09:55)
[2023-06-23] MEDS: Acetaminophen 325 MG TAB PO PRN ×2 (09:58→19:50)
[2023-06-23] MEDS ORDERED: Meropenem 1 GM in Sodium Chloride 0.9% 100 ML IVPB SCH (10:00)
[2023-06-23] MEDS: Meropenem 500 MG in Sodium Chloride 0.9% 100 ML IVPB SCH (17:23)
[2023-06-23] MEDS: Montelukast Sodium 10 mg Tablet PO SCH (19:50)
[2023-06-24] MEDS: Sodium Chloride 0.9% 1,000 ML IV SCH ×2 (04:12→11:06)
[2023-06-24] MEDS: Meropenem 500 MG in Sodium Chloride 0.9% 100 ML IVPB SCH (05:48)
[2023-06-24] MEDS: Levothyroxine Sodium 100 MCG TAB PO SCH (05:48)
[2023-06-24 06:58] LABS: #Eosinphils 0.1 thou/uL (0.0-0.7); #Monocytes 0.5 thou/uL (0.11-0.59); #Neutrophils 7.5 thou/uL (1.40-6.50); %Basophils 0.1 % (0.0-1.0); %Eosinophils 1.2 % (0.0-10.0); %Lymphocytes 1.4 % (21.0-51.0); %Monocytes 5.8 % (0.0-10.0); %Neutrophils 90.8 % (42.0-75.0); Hematocrit 29.8 % (36.0-47.0); Hemoglobin 9.4 g/dL (12.0-16.0); Mean Corpuscular HGB CONC 31.5 g/dL (32.0-36.0); Mean Corpuscular Hemoglobin 30.3 pg (27.0-31.0); Mean Corpuscular Volume 96.1 fl (78.0-98.0); Platelet Count 236 10x3/uL (130-400); RBC Distribution Width 14.6 % (11.5-14.5); White Blood Cell (WBC) Count 8.3 10x3/uL (4.8-10.8)
[2023-06-24 07:23] LABS: Anion Gap 9 mmol/L (10-20); BUN (Urea Nitrogen) 15 mg/dL (9.8-20.1); Calc. Creatinine Clearance 48 mL/min (70-130); Calcium 8.2 mg/dL (7.8-10.44); Carbon Dioxide 25 mmol/L (23-31); Chloride 108 mmol/L (98-107); Estimated GFR 59; Glucose 101 mg/dL (83-110); Potassium 3.5 mmol/L (3.5-5.1); Sodium 138 mmol/L (136-145)
[2023-06-24] MEDS: Aspirin Chewable 81 MG TAB PO SCH (08:03)
[2023-06-24] MEDS: Trospium 20 MG TAB PO SCH ×2 (08:03→22:12)
[2023-06-24] MEDS: Meropenem 1 GM in Sodium Chloride 0.9% 100 ML IVPB SCH (17:32)
[2023-06-24] MEDS ORDERED: Bisacodyl 5 MG TAB PO PRN (22:02)
[2023-06-24] MEDS: Montelukast Sodium 10 mg Tablet PO SCH (22:12)
[2023-06-24] MEDS: Senokot S 8.6-50 MG TAB PO PRN (22:13)
[2023-06-25] MEDS: Meropenem 1 GM in Sodium Chloride 0.9% 100 ML IVPB SCH ×2 (05:59→16:47)
[2023-06-25] MEDS: Levothyroxine Sodium 100 MCG TAB PO SCH (06:00)
[2023-06-25 06:24] LABS: #Eosinphils 0.2 thou/uL (0.0-0.7); #Monocytes 0.7 thou/uL (0.11-0.59); #Neutrophils 6.4 thou/uL (1.40-6.50); %Basophils 0.2 % (0.0-1.0); %Eosinophils 2.6 % (0.0-10.0); %Lymphocytes 9.1 % (21.0-51.0); %Monocytes 8.1 % (0.0-10.0); %Neutrophils 79.3 % (42.0-75.0); Hematocrit 33.9 % (36.0-47.0); Hemoglobin 10.8 g/dL (12.0-16.0); Mean Corpuscular HGB CONC 31.9 g/dL (32.0-36.0); Mean Corpuscular Volume 94.2 fl (78.0-98.0); Mean Platelet Volume 10.1 fL (7.4-10.4); Platelet Count 264 10x3/uL (130-400); RBC Distribution Width 14.2 % (11.5-14.5)
[2023-06-25 06:45] LABS: Anion Gap 11 mmol/L (10-20); BUN (Urea Nitrogen) 15 mg/dL (9.8-20.1); Calc. Creatinine Clearance 51 mL/min (70-130); Calcium 8.9 mg/dL (7.8-10.44); Carbon Dioxide 23 mmol/L (23-31); Chloride 108 mmol/L (98-107); Estimated GFR 63; Glucose 104 mg/dL (83-110); Potassium 3.4 mmol/L (3.5-5.1); Sodium 139 mmol/L (136-145)
[2023-06-25] MEDS ORDERED: Potassium Chloride 20 MEQ TAB PO SCH (07:45)
[2023-06-25] MEDS: DULoxetine 60 MG CAP PO SCH (08:33)
[2023-06-25] MEDS: Sodium Chloride 0.9% 1,000 ML IV SCH ×2 (08:34→14:34)
[2023-06-25] MEDS: Aspirin Chewable 81 MG TAB PO SCH (08:34)
[2023-06-25] MEDS: Trospium 20 MG TAB PO SCH ×3 (08:34→20:32)
[2023-06-25] MEDS ORDERED: Simethicone Chewable 80 MG TAB PO SCH (16:45)
[2023-06-25] MEDS: Simethicone Chewable 80 MG TAB PO SCH ×2 (16:47→20:27)
[2023-06-25] MEDS: Melatonin 3 MG TAB PO SCH (20:25)
[2023-06-25] MEDS: Rosuvastatin 10 MG TAB PO SCH (20:25)
[2023-06-25] MEDS: Montelukast Sodium 10 mg Tablet PO SCH (20:27)
[2023-06-25] MEDS: Calcium Carbonate 500 MG ChewTAB PO SCH (20:27)
[2023-06-26] MEDS: Meropenem 1 GM in Sodium Chloride 0.9% 100 ML IVPB SCH (06:02)
[2023-06-26] MEDS: Levothyroxine Sodium 100 MCG TAB PO SCH (06:02)
[2023-06-26 07:08] LABS: Anion Gap 10 mmol/L (10-20); BUN (Urea Nitrogen) 19 mg/dL (9.8-20.1); Calc. Creatinine Clearance 47 mL/min (70-130); Calcium 9.4 mg/dL (7.8-10.44); Carbon Dioxide 25 mmol/L (23-31); Chloride 106 mmol/L (98-107); Estimated GFR 57; Glucose 118 mg/dL (83-110); Potassium 3.9 mmol/L (3.5-5.1); Sodium 137 mmol/L (136-145)
[2023-06-26] MEDS ORDERED: Amlodipine 5 MG TAB PO SCH (09:00)
[2023-06-26] MEDS: Simethicone Chewable 80 MG TAB PO SCH ×4 (09:04→20:19)
[2023-06-26] MEDS: Cholecalciferol 1,000 UNITS (25 MCG) TAB PO SCH (09:04)
[2023-06-26] MEDS: Meloxicam 15 MG TAB PO SCH (09:04)
[2023-06-26] MEDS: Aspirin Chewable 81 MG TAB PO SCH (09:05)
[2023-06-26] MEDS: Trospium 20 MG TAB PO SCH ×2 (09:05→20:19)
[2023-06-26] MEDS: CO Q-10 CAPSULE 100 MG PO SCH (09:05)
[2023-06-26] MEDS: Calcium Carbonate 500 MG ChewTAB PO SCH ×2 (09:05→20:19)
[2023-06-26] MEDS: DULoxetine 60 MG CAP PO SCH (09:09)
[2023-06-26] MEDS: Cefdinir 300 MG CAP PO SCH (20:19)
[2023-06-26] MEDS: Rosuvastatin 10 MG TAB PO SCH (20:19)
[2023-06-26] MEDS: Montelukast Sodium 10 mg Tablet PO SCH (20:20)
[2023-06-26] MEDS: Melatonin 3 MG TAB PO SCH (20:53)
[2023-06-27] MEDS: Levothyroxine Sodium 100 MCG TAB PO SCH (06:15)
[2023-06-27] MEDS ORDERED: Amlodipine 5 MG TAB PO SCH ×2 (09:00→14:15)
[2023-06-27] MEDS: Cholecalciferol 1,000 UNITS (25 MCG) TAB PO SCH ×2 (09:26→09:27)
[2023-06-27] MEDS: DULoxetine 60 MG CAP PO SCH (09:27)
[2023-06-27] MEDS: CO Q-10 CAPSULE 100 MG PO SCH (09:27)
[2023-06-27] MEDS: Aspirin Chewable 81 MG TAB PO SCH (09:27)
[2023-06-27] MEDS: Calcium Carbonate 500 MG ChewTAB PO SCH ×2 (09:28→20:52)
[2023-06-27] MEDS: Cefdinir 300 MG CAP PO SCH ×2 (09:28→20:52)
[2023-06-27] MEDS: Simethicone Chewable 80 MG TAB PO SCH ×4 (09:28→22:00)
[2023-06-27] MEDS: Meloxicam 15 MG TAB PO SCH (09:30)
[2023-06-27] MEDS: Trospium 20 MG TAB PO SCH ×2 (09:37→20:52)
[2023-06-27] MEDS: Rosuvastatin 10 MG TAB PO SCH (20:52)
[2023-06-27] MEDS: Montelukast Sodium 10 mg Tablet PO SCH (20:52)
[2023-06-27] MEDS: Senokot S 8.6-50 MG TAB PO PRN (20:53)
[2023-06-27] MEDS: Melatonin 3 MG TAB PO SCH (20:54)
[2023-06-28] MEDS: Levothyroxine Sodium 100 MCG TAB PO SCH (05:25)
[2023-06-28] MEDS: Cholecalciferol 1,000 UNITS (25 MCG) TAB PO SCH (09:44)
[2023-06-28] MEDS: Amlodipine 5 MG TAB PO SCH (09:44)
[2023-06-28] MEDS: Calcium Carbonate 500 MG ChewTAB PO SCH ×2 (09:44→20:12)
[2023-06-28] MEDS: Simethicone Chewable 80 MG TAB PO SCH ×4 (09:44→20:22)
[2023-06-28] MEDS: CO Q-10 CAPSULE 100 MG PO SCH (09:44)
[2023-06-28] MEDS: Trospium 20 MG TAB PO SCH ×2 (09:44→20:13)
[2023-06-28] MEDS: Cefdinir 300 MG CAP PO SCH ×2 (09:44→20:12)
[2023-06-28] MEDS: Meloxicam 15 MG TAB PO SCH (09:45)
[2023-06-28] MEDS: DULoxetine 60 MG CAP PO SCH (09:45)
[2023-06-28] MEDS: Aspirin Chewable 81 MG TAB PO SCH (09:45)
[2023-06-28] MEDS: Melatonin 3 MG TAB PO SCH (20:13)
[2023-06-28] MEDS: Rosuvastatin 10 MG TAB PO SCH (20:13)
[2023-06-28] MEDS: Montelukast Sodium 10 mg Tablet PO SCH (20:13)
[2023-06-29] MEDS: Levothyroxine Sodium 100 MCG TAB PO SCH (05:25)
[2023-06-29] MEDS: Cefdinir 300 MG CAP PO SCH (10:37)
[2023-06-29] MEDS: Aspirin Chewable 81 MG TAB PO SCH (10:37)
[2023-06-29] MEDS: Calcium Carbonate 500 MG ChewTAB PO SCH ×2 (10:37→20:11)
[2023-06-29] MEDS: CO Q-10 CAPSULE 100 MG PO SCH (10:38)
[2023-06-29] MEDS: Trospium 20 MG TAB PO SCH ×2 (10:38→20:11)
[2023-06-29] MEDS: Simethicone Chewable 80 MG TAB PO SCH ×4 (10:38→20:11)
[2023-06-29] MEDS: Meloxicam 15 MG TAB PO SCH (10:38)
[2023-06-29] MEDS: Amlodipine 5 MG TAB PO SCH (10:38)
[2023-06-29] MEDS: DULoxetine 60 MG CAP PO SCH (10:39)
[2023-06-29 11:42] LABS: #Basophils 0.1 thou/uL (0.0-0.2); #Eosinphils 0.2 thou/uL (0.0-0.7); #Monocytes 1.4 thou/uL (0.11-0.59); #Neutrophils 11.6 thou/uL (1.40-6.50); %Basophils 0.4 % (0.0-1.0); %Eosinophils 1.4 % (0.0-10.0); %Lymphocytes 10.8 % (21.0-51.0); %Monocytes 9.2 % (0.0-10.0); %Neutrophils 76.5 % (42.0-75.0); Hematocrit 33.1 % (36.0-47.0); Hemoglobin 10.4 g/dL (12.0-16.0); Mean Corpuscular HGB CONC 31.4 g/dL (32.0-36.0); Mean Corpuscular Hemoglobin 29.5 pg (27.0-31.0); Mean Corpuscular Volume 93.8 fl (78.0-98.0); Mean Platelet Volume 9.6 fL (7.4-10.4); Platelet Count 337 10x3/uL (130-400); RBC Distribution Width 14.1 % (11.5-14.5); Red Blood Cell (RBC) Count 3.53 mill/uL (4.20-5.40); White Blood Cell (WBC) Count 15.2 10x3/uL (4.8-10.8)
[2023-06-29] MEDS ORDERED: Meropenem 1 GM in Sodium Chloride 0.9% 100 ML IVPB SCH (12:00)
[2023-06-29 12:24] LABS: Lactic Acid 1.3 mmol/L (0.5-2.2)
[2023-06-29 12:29] LABS: Albumin 3.2 g/dL (3.4-4.8); Alkaline Phosphatase 98 U/L (40-110); Anion Gap 14 mmol/L (10-20); BUN (Urea Nitrogen) 22 mg/dL (9.8-20.1); Bilirubin, Total 0.4 mg/dL (0.2-1.2); Calc. Creatinine Clearance 40 mL/min (70-130); Calcium 9.6 mg/dL (7.6-10.4); Carbon Dioxide 22 mmol/L (23-31); Chloride 100 mmol/L (98-107); Estimated GFR 46; Globulin 3.3 g/dL (2.4-3.5); Glucose 120 mg/dL (83-110); Protein, Total 6.5 g/dL (5.8-8.1); Sodium 132 mmol/L (136-145)
[2023-06-29 12:30] LABS: ALT (SGPT) 33 U/L (8-55); AST (SGOT) 21 U/L (5-34)
[2023-06-29] MEDS: Sodium Chloride 0.9% 1,000 ML IV SCH ×2 (13:24→20:14)
[2023-06-29 19:06] LABS: Bilirubin Negative (Negative); Blood, Urine Negative (Negative); CAUTI Indications for Culture Alt mental st,lethar; Clarity Clear (Clear); Glucose, Urine (Dipstick) Normal (Negative); Ketone, Urine Negative (Negative); Leukocyte 250 Leu/uL (Negative); Nitrite Negative (Negative); Protein, Urine (Dipstick) Negative (Neg-Trace); RBC/HPF 0-3 HPF (0-3); Squamous Epithelial 0-3 HPF (0-3); Urobilinogen Normal mg/dL (Less than 2); Yeast-Budding Rare HPF (None Seen)
[2023-06-29 19:07] LABS: Bacteria/HPF 1+ HPF (None Seen)
[2023-06-29 19:08] LABS: Urine Culture Reflex No No
[2023-06-29] MEDS: Montelukast Sodium 10 mg Tablet PO SCH (20:11)
[2023-06-29] MEDS: Meropenem 1 GM in Sodium Chloride 0.9% 100 ML IVPB SCH (20:11)
[2023-06-29] MEDS: Rosuvastatin 10 MG TAB PO SCH (20:11)
[2023-06-29] MEDS: Melatonin 3 MG TAB PO SCH (23:10)
[2023-06-30] MEDS: Levothyroxine Sodium 100 MCG TAB PO SCH (05:01)
[2023-06-30] MEDS: Acetaminophen 325 MG TAB PO PRN (05:26)
[2023-06-30 07:12] LABS: #Eosinphils 0.2 thou/uL (0.0-0.7); #Monocytes 0.9 thou/uL (0.11-0.59); #Neutrophils 9.5 thou/uL (1.40-6.50); %Basophils 0.3 % (0.0-1.0); %Eosinophils 1.8 % (0.0-10.0); %Lymphocytes 8.9 % (21.0-51.0); %Monocytes 7.8 % (0.0-10.0); %Neutrophils 79.4 % (42.0-75.0); Hematocrit 29.1 % (36.0-47.0); Hemoglobin 9.2 g/dL (12.0-16.0); Mean Corpuscular HGB CONC 31.6 g/dL (32.0-36.0); Mean Corpuscular Volume 94.8 fl (78.0-98.0); Mean Platelet Volume 9.6 fL (7.4-10.4); Platelet Count 315 10x3/uL (130-400); Red Blood Cell (RBC) Count 3.07 mill/uL (4.20-5.40)
[2023-06-30 07:29] LABS: Anion Gap 12 mmol/L (10-20); BUN (Urea Nitrogen) 19 mg/dL (9.8-20.1); Calc. Creatinine Clearance 45 mL/min (70-130); Calcium 8.8 mg/dL (7.8-10.44); Carbon Dioxide 23 mmol/L (23-31); Chloride 103 mmol/L (98-107); Estimated GFR 55; Glucose 106 mg/dL (83-110); Potassium 4.2 mmol/L (3.5-5.1); Sodium 134 mmol/L (136-145)
[2023-06-30] MEDS: Meropenem 1 GM in Sodium Chloride 0.9% 100 ML IVPB SCH (08:38)
[2023-06-30] MEDS: CO Q-10 CAPSULE 100 MG PO SCH (08:39)
[2023-06-30] MEDS: Meloxicam 15 MG TAB PO SCH (08:39)
[2023-06-30] MEDS: Aspirin Chewable 81 MG TAB PO SCH (08:39)
[2023-06-30] MEDS: Trospium 20 MG TAB PO SCH (08:39)
[2023-06-30] MEDS: Calcium Carbonate 500 MG ChewTAB PO SCH (08:39)
[2023-06-30] MEDS: DULoxetine 60 MG CAP PO SCH (08:40)
[2023-06-30] MEDS: Cholecalciferol 1,000 UNITS (25 MCG) TAB PO SCH (08:40)
[2023-06-30] MEDS: Amlodipine 5 MG TAB PO SCH (08:40)
[2023-06-30] MEDS: Sodium Chloride 0.9% 1,000 ML IV SCH (08:48)
[2023-06-30] MEDS: Simethicone Chewable 80 MG TAB PO SCH ×2 (08:49→12:18)
[2023-06-30 11:51] VITALS: BP 124/70; TEMP 97.9
== END 2023-06-30 13:54 | DRG 689 ==
LOC: ERS 03:57 → T4-A 07:25 → OBSVTOIN 10:25
PROVIDERS: ADMIT Internal Medicine; ATTEND Family Medicine
PROC: 5A09357 Assistance with Respiratory Ventilation, Less than 24 Consecutive Hours, Continuous Positive Airway Pressure (ICD-10-PCS; principal; 2023-06-23)
DX: N39.0 Urinary tract infection, site not specified (principal); G93.41 Metabolic encephalopathy; N17.9 Acute kidney failure, unspecified; R65.10 Systemic inflammatory response syndrome (SIRS) of non-infectious origin without acute organ dysfunction; E03.9 Hypothyroidism, unspecified; K21.9 Gastro-esophageal reflux disease without esophagitis; Z51.5 Encounter for palliative care; I12.9 Hypertensive chronic kidney disease with stage 1 through stage 4 chronic kidney disease, or unspecified chronic kidney disease; Z66 Do not resuscitate; B96.20 Unspecified Escherichia coli [E. coli] as the cause of diseases classified elsewhere; G71.3 Mitochondrial myopathy, not elsewhere classified; Z20.822 Contact with and (suspected) exposure to COVID-19; R55 Syncope and collapse; H91.90 Unspecified hearing loss, unspecified ear; Z79.899 Other long term (current) drug therapy; Z79.82 Long term (current) use of aspirin; Z90.710 Acquired absence of both cervix and uterus; Z98.890 Other specified postprocedural states; Z98.49 Cataract extraction status, unspecified eye; N18.32 Chronic kidney disease, stage 3b; R53.81 Other malaise
CPT/HCPCS: 36415; 36416; 70450; 71045; 80048; 80053; 81001; 82550; 83605; 83690; 83735; 84145; 84484; 85025; 87040; 87077; 87086; 87186; 87635; 93005; 96360; 96361; 96365; J0696; J2185; J3490; J7050

== ENCOUNTER 2023-08-13 21:09 | Inpatient (IN) | payer MEDICARE, BC ==
[2023-08-13 21:38] LABS: Hematocrit 28.7 % (36.0-47.0); Hemoglobin 9.3 g/dL (12.0-16.0); Mean Corpuscular HGB CONC 32.4 g/dL (32.0-36.0); Mean Corpuscular Hemoglobin 30.3 pg (27.0-31.0); Mean Corpuscular Volume 93.5 fl (78.0-98.0); Mean Platelet Volume 9.8 fL (7.4-10.4); Platelet Count 266 10x3/uL (130-400); RBC Distribution Width 15.7 % (11.5-14.5); Red Blood Cell (RBC) Count 3.07 mill/uL (4.20-5.40); White Blood Cell (WBC) Count 12.1 10x3/uL (4.8-10.8)
[2023-08-13 21:51] LABS: Delete Auto Diff?? YES; Manual Diff?? YES
[2023-08-13 22:02] LABS: ALT (SGPT) 16 U/L (8-55); AST (SGOT) 13 U/L (5-34); Albumin 3.3 g/dL (3.4-4.8); Alkaline Phosphatase 60 U/L (40-110); Anion Gap 12 mmol/L (10-20); BUN (Urea Nitrogen) 23 mg/dL (9.8-20.1); Bilirubin, Total 0.4 mg/dL (0.2-1.2); Calc. Creatinine Clearance 0 mL/min (70-130); Calcium 8.9 mg/dL (7.8-10.44); Carbon Dioxide 25 mmol/L (23-31); Chloride 97 mmol/L (98-107); Estimated GFR 35; Globulin 2.4 g/dL (2.4-3.5); Glucose 134 mg/dL (83-110); Potassium 4.6 mmol/L (3.5-5.1); Protein, Total 5.7 g/dL (5.8-8.1); Sodium 129 mmol/L (136-145)
[2023-08-13 22:06] LABS: Troponin I Less than 0.010 ng/mL (< 0.028)
[2023-08-13 22:19] LABS: Bacteria/HPF None Seen HPF (None Seen); Bilirubin Negative (Negative); Blood, Urine Negative (Negative); CAUTI Indications for Culture Dysuria,urgency,freq; Clarity Clear (Clear); Glucose, Urine (Dipstick) Normal (Negative); Ketone, Urine Negative (Negative); Leukocyte Negative Leu/uL (Negative); Nitrite Negative (Negative); Protein, Urine (Dipstick) 30 mg/dL (Neg-Trace); RBC/HPF 0-3 HPF (0-3); Specific Gravity, Urine 1.017 (1.002-1.036); Urobilinogen Normal mg/dL (Less than 2); WBC/HPF 0-3 HPF (0-3)
[2023-08-13 22:20] LABS: Urine Culture Reflex No No
[2023-08-13 22:45] LABS: Anisocytosis SLIGHT = 6-15 cells HPF (0-5); Band 30 % (5-11); CellaVision Operator ID LAB.JMM; Eosinophils 3 % (0-10); Lymphocytes 6 % (21-51); Macrocytosis SLIGHT = 6-15 cells HPF (0-5); Monocytes 4 % (0-10); Neutrophil 55 % (42-75); Ovalocytes SLIGHT = 2-5 cells HPF (0-1); Platelet Adequacy Comment Platelets Normal; Polychromasia SLIGHT = 2-3 cells HPF (0-2); Total Cell Count 100
[2023-08-13] MEDS ORDERED: Ondansetron PF 4 MG/2 ML Vial IVP PRN (23:00)
[2023-08-13] MEDS ORDERED: Ondansetron ODT 4 MG TAB SL PRN (23:00)
[2023-08-13] MEDS ORDERED: Acetaminophen 325 MG TAB PO PRN (23:00)
[2023-08-14] MEDS ORDERED: Lactated Ringer's 500 ML IV SCH (00:30)
[2023-08-14] MEDS: Sodium Chloride 0.9% 1,000 ML IV SCH ×2 (00:42→09:34)
[2023-08-14 05:19] LABS: Hematocrit 27.9 % (36.0-47.0); Hemoglobin 8.8 g/dL (12.0-16.0); Mean Corpuscular HGB CONC 31.5 g/dL (32.0-36.0); Mean Corpuscular Hemoglobin 29.9 pg (27.0-31.0); Mean Corpuscular Volume 94.9 fl (78.0-98.0); Mean Platelet Volume 10.2 fL (7.4-10.4); Platelet Count 273 10x3/uL (130-400); RBC Distribution Width 15.8 % (11.5-14.5); Red Blood Cell (RBC) Count 2.94 mill/uL (4.20-5.40); White Blood Cell (WBC) Count 12.9 10x3/uL (4.8-10.8)
[2023-08-14 05:41] LABS: Delete Auto Diff?? YES; Manual Diff?? YES
[2023-08-14 05:42] LABS: Anion Gap 12 mmol/L (10-20); BUN (Urea Nitrogen) 19 mg/dL (9.8-20.1); Calc. Creatinine Clearance 40 mL/min (70-130); Calcium 8.7 mg/dL (7.8-10.44); Carbon Dioxide 25 mmol/L (23-31); Chloride 101 mmol/L (98-107); Estimated GFR 46; Glucose 94 mg/dL (83-110); Potassium 4.1 mmol/L (3.5-5.1); Sodium 134 mmol/L (136-145)
[2023-08-14 06:43] LABS: Anisocytosis SLIGHT = 6-15 cells HPF (0-5); Band 23 % (5-11); CellaVision Operator ID LAB.JMM; Elliptocytes SLIGHT = 2-5 cells HPF (0-1); Eosinophils 1 % (0-10); Large Platelets 2.9 % (0-5); Lymphocytes 5 % (21-51); Macrocytosis SLIGHT = 6-15 cells HPF (0-5); Monocytes 6 % (0-10); Neutrophil 65 % (42-75); Platelet Adequacy Comment Platelets Normal; Polychromasia SLIGHT = 2-3 cells HPF (0-2); Total Cell Count 103
[2023-08-14] MEDS ORDERED: FLU VACC QS2023(65UP)/MF59C/PF 60 MCG/0.5 ML SYRINGE IM ONE (09:00)
[2023-08-14] MEDS ORDERED: LEVOCARNITINE TARTRATE 500 MG PO SCH (09:00)
[2023-08-14] MEDS ORDERED: RIBOFLAVIN 50 MG PO SCH (09:00)
[2023-08-14] MEDS ORDERED: Amlodipine 5 MG TAB PO SCH ×2 (09:00→20:00)
[2023-08-14] MEDS: Calcium Carbonate 500 MG ChewTAB PO SCH ×2 (10:45→20:41)
[2023-08-14] MEDS: CO Q-10 CAPSULE 100 MG PO SCH (10:45)
[2023-08-14] MEDS: Levothyroxine Sodium 88 MCG TAB PO SCH (10:45)
[2023-08-14] MEDS: Atorvastatin Calcium 10 MG TAB PO SCH (10:45)
[2023-08-14] MEDS: Aspirin Chewable 81 MG TAB PO SCH (10:45)
[2023-08-14] MEDS: Famotidine 20 MG TAB PO SCH (10:46)
[2023-08-14] MEDS: Cholecalciferol 1,000 UNITS (25 MCG) TAB PO SCH (10:46)
[2023-08-14] MEDS: DULoxetine 60 MG CAP PO SCH (10:46)
[2023-08-14] MEDS: Magnesium Oxide 400 MG TAB PO SCH (10:46)
[2023-08-14] MEDS: Trospium 20 MG TAB PO SCH (10:47)
[2023-08-14] MEDS: Vancomycin HCl 125 MG Capsule PO SCH ×2 (16:35→22:50)
[2023-08-14] MEDS: Saccharomyces boulardii 250 MG CAP PO SCH (20:40)
[2023-08-14] MEDS: Lactated Ringer's 1,000 ML IV SCH (20:41)
[2023-08-14] MEDS: Montelukast Sodium 10 mg Tablet PO SCH (20:41)
[2023-08-15] MEDS: Vancomycin HCl 125 MG Capsule PO SCH ×4 (04:17→23:04)
[2023-08-15] MEDS: Levothyroxine Sodium 88 MCG TAB PO SCH (04:17)
[2023-08-15 04:25] LABS: #Basophils 0.1 thou/uL (0.0-0.2); #Eosinphils 0.1 thou/uL (0.0-0.7); #Monocytes 1.3 thou/uL (0.11-0.59); #Neutrophils 10.7 thou/uL (1.40-6.50); %Basophils 0.5 % (0.0-1.0); %Eosinophils 0.8 % (0.0-10.0); %Lymphocytes 8.1 % (21.0-51.0); %Monocytes 9.5 % (0.0-10.0); %Neutrophils 80.6 % (42.0-75.0); Hematocrit 30.1 % (36.0-47.0); Hemoglobin 9.8 g/dL (12.0-16.0); Mean Corpuscular HGB CONC 32.6 g/dL (32.0-36.0); Mean Corpuscular Hemoglobin 29.8 pg (27.0-31.0); Mean Corpuscular Volume 91.5 fl (78.0-98.0); Mean Platelet Volume 9.7 fL (7.4-10.4); Platelet Count 309 10x3/uL (130-400); RBC Distribution Width 15.5 % (11.5-14.5); Red Blood Cell (RBC) Count 3.29 mill/uL (4.20-5.40); White Blood Cell (WBC) Count 13.3 10x3/uL (4.8-10.8)
[2023-08-15 04:50] LABS: ALT (SGPT) 12 U/L (8-55); AST (SGOT) 13 U/L (5-34); Alkaline Phosphatase 64 U/L (40-110); Anion Gap 10 mmol/L (10-20); BUN (Urea Nitrogen) 10 mg/dL (9.8-20.1); Bilirubin, Total 0.5 mg/dL (0.2-1.2); Calc. Creatinine Clearance 54 mL/min (70-130); Calcium 8.9 mg/dL (7.8-10.44); Carbon Dioxide 26 mmol/L (23-31); Chloride 100 mmol/L (98-107); Estimated GFR 67; Globulin 2.6 g/dL (2.4-3.5); Glucose 106 mg/dL (83-110); Magnesium 1.6 mg/dL (1.6-2.6); Phosphorus 2.4 mg/dL (2.3-4.7); Potassium 3.7 mmol/L (3.5-5.1); Protein, Total 5.6 g/dL (5.8-8.1); Sodium 132 mmol/L (136-145)
[2023-08-15] MEDS: Calcium Carbonate 500 MG ChewTAB PO SCH ×2 (10:12→21:50)
[2023-08-15] MEDS: Cholecalciferol 1,000 UNITS (25 MCG) TAB PO SCH (10:16)
[2023-08-15] MEDS: CO Q-10 CAPSULE 100 MG PO SCH (10:17)
[2023-08-15] MEDS: Atorvastatin Calcium 10 MG TAB PO SCH (10:17)
[2023-08-15] MEDS: DULoxetine 60 MG CAP PO SCH (10:17)
[2023-08-15] MEDS: Trospium 20 MG TAB PO SCH (10:17)
[2023-08-15] MEDS: Magnesium Oxide 400 MG TAB PO SCH (10:17)
[2023-08-15] MEDS: Amlodipine 5 MG TAB PO SCH (10:17)
[2023-08-15] MEDS: Aspirin Chewable 81 MG TAB PO SCH (10:17)
[2023-08-15] MEDS: Famotidine 20 MG TAB PO SCH (10:18)
[2023-08-15] MEDS: Lactated Ringer's 1,000 ML IV SCH (10:19)
[2023-08-15] MEDS: Saccharomyces boulardii 250 MG CAP PO SCH (21:50)
[2023-08-15] MEDS: Montelukast Sodium 10 mg Tablet PO SCH (21:50)
[2023-08-15] MEDS: Acetaminophen 325 MG TAB PO PRN (23:04)
[2023-08-16] MEDS: Vancomycin HCl 125 MG Capsule PO SCH ×4 (05:05→21:29)
[2023-08-16] MEDS: Levothyroxine Sodium 88 MCG TAB PO SCH (05:05)
[2023-08-16] MEDS: Cholecalciferol 1,000 UNITS (25 MCG) TAB PO SCH (09:58)
[2023-08-16] MEDS: DULoxetine 60 MG CAP PO SCH (09:58)
[2023-08-16] MEDS: Magnesium Oxide 400 MG TAB PO SCH (09:59)
[2023-08-16] MEDS: Aspirin Chewable 81 MG TAB PO SCH (09:59)
[2023-08-16] MEDS: Famotidine 20 MG TAB PO SCH (09:59)
[2023-08-16] MEDS: Amlodipine 5 MG TAB PO SCH (09:59)
[2023-08-16] MEDS: Trospium 20 MG TAB PO SCH (09:59)
[2023-08-16] MEDS: Atorvastatin Calcium 10 MG TAB PO SCH (09:59)
[2023-08-16] MEDS: CO Q-10 CAPSULE 100 MG PO SCH (09:59)
[2023-08-16 12:34] LABS: #Basophils 0.1 thou/uL (0.0-0.2); #Eosinphils 0.2 thou/uL (0.0-0.7); #Monocytes 0.8 thou/uL (0.11-0.59); #Neutrophils 7.8 thou/uL (1.40-6.50); %Basophils 0.7 % (0.0-1.0); %Eosinophils 2.1 % (0.0-10.0); %Monocytes 7.9 % (0.0-10.0); %Neutrophils 80.4 % (42.0-75.0); Hematocrit 31.1 % (36.0-47.0); Hemoglobin 9.9 g/dL (12.0-16.0); Mean Corpuscular HGB CONC 31.8 g/dL (32.0-36.0); Mean Corpuscular Hemoglobin 29.6 pg (27.0-31.0); Mean Corpuscular Volume 92.8 fl (78.0-98.0); Mean Platelet Volume 9.6 fL (7.4-10.4); Platelet Count 355 10x3/uL (130-400); RBC Distribution Width 15.5 % (11.5-14.5); Red Blood Cell (RBC) Count 3.35 mill/uL (4.20-5.40); White Blood Cell (WBC) Count 9.6 10x3/uL (4.8-10.8)
[2023-08-16 13:06] LABS: Anion Gap 10 mmol/L (10-20); BUN (Urea Nitrogen) 10 mg/dL (9.8-20.1); Calc. Creatinine Clearance 54 mL/min (70-130); Calcium 9.3 mg/dL (7.8-10.44); Carbon Dioxide 27 mmol/L (23-31); Chloride 101 mmol/L (98-107); Estimated GFR 67; Glucose 90 mg/dL (83-110); Potassium 4.1 mmol/L (3.5-5.1); Sodium 134 mmol/L (136-145)
[2023-08-16] MEDS: Calcium Carbonate 500 MG ChewTAB PO SCH ×2 (15:38→22:44)
[2023-08-16] MEDS: Saccharomyces boulardii 250 MG CAP PO SCH (21:29)
[2023-08-16] MEDS: Montelukast Sodium 10 mg Tablet PO SCH (21:29)
[2023-08-17] MEDS: Vancomycin HCl 125 MG Capsule PO SCH ×4 (05:17→21:12)
[2023-08-17] MEDS: Levothyroxine Sodium 88 MCG TAB PO SCH (05:17)
[2023-08-17 06:51] LABS: #Basophils 0.1 thou/uL (0.0-0.2); #Eosinphils 0.2 thou/uL (0.0-0.7); #Monocytes 1.1 thou/uL (0.11-0.59); #Neutrophils 5.6 thou/uL (1.40-6.50); %Basophils 0.6 % (0.0-1.0); %Eosinophils 2.8 % (0.0-10.0); %Lymphocytes 15.4 % (21.0-51.0); %Monocytes 13.2 % (0.0-10.0); %Neutrophils 66.9 % (42.0-75.0); Hematocrit 30.3 % (36.0-47.0); Hemoglobin 9.9 g/dL (12.0-16.0); Mean Corpuscular HGB CONC 32.7 g/dL (32.0-36.0); Mean Corpuscular Hemoglobin 29.9 pg (27.0-31.0); Mean Corpuscular Volume 91.5 fl (78.0-98.0); Mean Platelet Volume 9.2 fL (7.4-10.4); Platelet Count 358 10x3/uL (130-400); RBC Distribution Width 15.4 % (11.5-14.5); Red Blood Cell (RBC) Count 3.31 mill/uL (4.20-5.40); White Blood Cell (WBC) Count 8.4 10x3/uL (4.8-10.8)
[2023-08-17 07:22] LABS: Anion Gap 11 mmol/L (10-20); BUN (Urea Nitrogen) 10 mg/dL (9.8-20.1); Calc. Creatinine Clearance 52 mL/min (70-130); Calcium 9.8 mg/dL (7.8-10.44); Carbon Dioxide 28 mmol/L (23-31); Chloride 100 mmol/L (98-107); Estimated GFR 64; Glucose 101 mg/dL (83-110); Potassium 3.6 mmol/L (3.5-5.1); Sodium 135 mmol/L (136-145)
[2023-08-17] MEDS: DULoxetine 60 MG CAP PO SCH (10:27)
[2023-08-17] MEDS: Famotidine 20 MG TAB PO SCH (10:27)
[2023-08-17] MEDS: Amlodipine 5 MG TAB PO SCH (10:27)
[2023-08-17] MEDS: Atorvastatin Calcium 10 MG TAB PO SCH (10:27)
[2023-08-17] MEDS: Trospium 20 MG TAB PO SCH (10:27)
[2023-08-17] MEDS: Magnesium Oxide 400 MG TAB PO SCH (10:28)
[2023-08-17] MEDS: CO Q-10 CAPSULE 100 MG PO SCH (10:28)
[2023-08-17] MEDS: Aspirin Chewable 81 MG TAB PO SCH (10:28)
[2023-08-17] MEDS: Cholecalciferol 1,000 UNITS (25 MCG) TAB PO SCH (10:28)
[2023-08-17] MEDS: Calcium Carbonate 500 MG ChewTAB PO SCH ×2 (10:30→21:12)
[2023-08-17] MEDS: Saccharomyces boulardii 250 MG CAP PO SCH (21:12)
[2023-08-17] MEDS: Montelukast Sodium 10 mg Tablet PO SCH (21:12)
[2023-08-18] MEDS: Vancomycin HCl 125 MG Capsule PO SCH ×4 (04:23→23:43)
[2023-08-18 04:30] LABS: #Eosinphils 0.2 thou/uL (0.0-0.7); #Monocytes 0.9 thou/uL (0.11-0.59); #Neutrophils 6.4 thou/uL (1.40-6.50); %Basophils 0.5 % (0.0-1.0); %Eosinophils 2.1 % (0.0-10.0); %Lymphocytes 14.1 % (21.0-51.0); %Monocytes 9.8 % (0.0-10.0); %Neutrophils 72.4 % (42.0-75.0); Hematocrit 29.9 % (36.0-47.0); Hemoglobin 9.7 g/dL (12.0-16.0); Mean Corpuscular HGB CONC 32.4 g/dL (32.0-36.0); Mean Corpuscular Hemoglobin 29.3 pg (27.0-31.0); Mean Corpuscular Volume 90.3 fl (78.0-98.0); Mean Platelet Volume 9.4 fL (7.4-10.4); Platelet Count 404 10x3/uL (130-400); RBC Distribution Width 15.4 % (11.5-14.5); Red Blood Cell (RBC) Count 3.31 mill/uL (4.20-5.40); White Blood Cell (WBC) Count 8.9 10x3/uL (4.8-10.8)
[2023-08-18 05:04] LABS: Anion Gap 9 mmol/L (10-20); BUN (Urea Nitrogen) 10 mg/dL (9.8-20.1); Calc. Creatinine Clearance 48 mL/min (70-130); Calcium 10.1 mg/dL (7.8-10.44); Carbon Dioxide 31 mmol/L (23-31); Chloride 98 mmol/L (98-107); Estimated GFR 59; Glucose 140 mg/dL (83-110); Potassium 3.5 mmol/L (3.5-5.1); Sodium 134 mmol/L (136-145)
[2023-08-18] MEDS: Levothyroxine Sodium 88 MCG TAB PO SCH (05:28)
[2023-08-18] MEDS: CO Q-10 CAPSULE 100 MG PO SCH (09:25)
[2023-08-18] MEDS: Amlodipine 5 MG TAB PO SCH (09:25)
[2023-08-18] MEDS: Atorvastatin Calcium 10 MG TAB PO SCH (09:25)
[2023-08-18] MEDS: Famotidine 20 MG TAB PO SCH (09:25)
[2023-08-18] MEDS: Magnesium Oxide 400 MG TAB PO SCH (09:25)
[2023-08-18] MEDS: Trospium 20 MG TAB PO SCH (09:25)
[2023-08-18] MEDS: DULoxetine 60 MG CAP PO SCH (09:25)
[2023-08-18] MEDS: Aspirin Chewable 81 MG TAB PO SCH (09:25)
[2023-08-18] MEDS: Cholecalciferol 1,000 UNITS (25 MCG) TAB PO SCH (09:25)
[2023-08-18] MEDS: Calcium Carbonate 500 MG ChewTAB PO SCH ×2 (09:31→23:43)
[2023-08-18] MEDS: Acetaminophen 325 MG TAB PO PRN ×2 (19:54→23:54)
[2023-08-18] MEDS: Montelukast Sodium 10 mg Tablet PO SCH (23:43)
[2023-08-18] MEDS: Saccharomyces boulardii 250 MG CAP PO SCH (23:43)
[2023-08-18] MEDS: CEFAZOLIN 1 GM in Sodium Chloride 0.9% 100 ML IVPB SCH (23:45)
[2023-08-19] MEDS ORDERED: diphenhydrAMINE 25 MG CAP PO SCH (03:30)
[2023-08-19] MEDS: Vancomycin HCl 125 MG Capsule PO SCH ×4 (04:24→23:06)
[2023-08-19 05:05] LABS: #Basophils 0.1 thou/uL (0.0-0.2); #Eosinphils 0.2 thou/uL (0.0-0.7); #Monocytes 1.1 thou/uL (0.11-0.59); #Neutrophils 12.6 thou/uL (1.40-6.50); %Basophils 0.3 % (0.0-1.0); %Eosinophils 1.2 % (0.0-10.0); %Monocytes 7.5 % (0.0-10.0); %Neutrophils 83.9 % (42.0-75.0); Hematocrit 33.1 % (36.0-47.0); Hemoglobin 10.5 g/dL (12.0-16.0); Mean Corpuscular HGB CONC 31.7 g/dL (32.0-36.0); Mean Corpuscular Hemoglobin 29.6 pg (27.0-31.0); Mean Corpuscular Volume 93.2 fl (78.0-98.0); Mean Platelet Volume 9.3 fL (7.4-10.4); Platelet Count 463 10x3/uL (130-400); RBC Distribution Width 15.4 % (11.5-14.5); Red Blood Cell (RBC) Count 3.55 mill/uL (4.20-5.40)
[2023-08-19 05:41] LABS: Anion Gap 12 mmol/L (10-20); BUN (Urea Nitrogen) 9 mg/dL (9.8-20.1); Calc. Creatinine Clearance 47 mL/min (70-130); Calcium 10.1 mg/dL (7.8-10.44); Carbon Dioxide 28 mmol/L (23-31); Chloride 96 mmol/L (98-107); Estimated GFR 57; Glucose 107 mg/dL (83-110); Sodium 132 mmol/L (136-145)
[2023-08-19] MEDS: CEFAZOLIN 1 GM in Sodium Chloride 0.9% 100 ML IVPB SCH (06:52)
[2023-08-19] MEDS: Levothyroxine Sodium 88 MCG TAB PO SCH (06:52)
[2023-08-19] MEDS ORDERED: Meropenem 1 GM in Sodium Chloride 0.9% 100 ML IVPB SCH ×2 (09:00→14:00)
[2023-08-19] MEDS ORDERED: Iopamidol-370 76% 500 ML MDV (1 ML CHARGE) ONE (09:09)
[2023-08-19] MEDS: Famotidine 20 MG TAB PO SCH (09:54)
[2023-08-19] MEDS: Calcium Carbonate 500 MG ChewTAB PO SCH ×2 (09:54→23:06)
[2023-08-19] MEDS: Trospium 20 MG TAB PO SCH (09:54)
[2023-08-19] MEDS: Aspirin Chewable 81 MG TAB PO SCH (09:54)
[2023-08-19] MEDS: CO Q-10 CAPSULE 100 MG PO SCH (09:54)
[2023-08-19] MEDS: Cholecalciferol 1,000 UNITS (25 MCG) TAB PO SCH (09:55)
[2023-08-19] MEDS: Amlodipine 5 MG TAB PO SCH (09:55)
[2023-08-19] MEDS: Magnesium Oxide 400 MG TAB PO SCH (09:55)
[2023-08-19] MEDS: DULoxetine 60 MG CAP PO SCH (09:55)
[2023-08-19] MEDS: Atorvastatin Calcium 10 MG TAB PO SCH (09:55)
[2023-08-19] MEDS: Vancomycin 1 GM in Premix Bag 1 BAG IVPB SCH (11:02)
[2023-08-19] MEDS: Meropenem 1 GM in Sodium Chloride 0.9% 100 ML IVPB SCH (23:06)
[2023-08-19] MEDS: Montelukast Sodium 10 mg Tablet PO SCH (23:06)
[2023-08-19] MEDS: Saccharomyces boulardii 250 MG CAP PO SCH (23:07)
[2023-08-20 04:33] LABS: #Basophils 0.1 thou/uL (0.0-0.2); #Eosinphils 0.1 thou/uL (0.0-0.7); #Monocytes 1.7 thou/uL (0.11-0.59); #Neutrophils 24.3 thou/uL (1.40-6.50); %Basophils 0.3 % (0.0-1.0); %Eosinophils 0.3 % (0.0-10.0); %Lymphocytes 4.7 % (21.0-51.0); %Monocytes 6.2 % (0.0-10.0); %Neutrophils 86.7 % (42.0-75.0); Hematocrit 30.6 % (36.0-47.0); Mean Corpuscular HGB CONC 32.7 g/dL (32.0-36.0); Mean Corpuscular Hemoglobin 30.2 pg (27.0-31.0); Mean Corpuscular Volume 92.4 fl (78.0-98.0); Mean Platelet Volume 9.4 fL (7.4-10.4); Platelet Count 496 10x3/uL (130-400); RBC Distribution Width 15.6 % (11.5-14.5); Red Blood Cell (RBC) Count 3.31 mill/uL (4.20-5.40)
[2023-08-20 05:02] LABS: Anion Gap 14 mmol/L (10-20); BUN (Urea Nitrogen) 12 mg/dL (9.8-20.1); Calc. Creatinine Clearance 49 mL/min (70-130); Carbon Dioxide 27 mmol/L (23-31); Chloride 97 mmol/L (98-107); Estimated GFR 60; Glucose 105 mg/dL (83-110); Sodium 134 mmol/L (136-145)
[2023-08-20] MEDS: Vancomycin HCl 125 MG Capsule PO SCH ×4 (07:11→21:40)
[2023-08-20] MEDS: Levothyroxine Sodium 88 MCG TAB PO SCH (07:12)
[2023-08-20] MEDS: Calcium Carbonate 500 MG ChewTAB PO SCH ×2 (10:18→21:40)
[2023-08-20] MEDS: Meropenem 1 GM in Sodium Chloride 0.9% 100 ML IVPB SCH ×2 (10:18→21:40)
[2023-08-20] MEDS: Famotidine 20 MG TAB PO SCH (10:19)
[2023-08-20] MEDS: Aspirin Chewable 81 MG TAB PO SCH (10:19)
[2023-08-20] MEDS: Atorvastatin Calcium 10 MG TAB PO SCH (10:19)
[2023-08-20] MEDS: Cholecalciferol 1,000 UNITS (25 MCG) TAB PO SCH (10:19)
[2023-08-20] MEDS: Amlodipine 5 MG TAB PO SCH (10:19)
[2023-08-20] MEDS: CO Q-10 CAPSULE 100 MG PO SCH (10:20)
[2023-08-20] MEDS: Magnesium Oxide 400 MG TAB PO SCH (10:20)
[2023-08-20] MEDS: Trospium 20 MG TAB PO SCH (10:20)
[2023-08-20] MEDS: DULoxetine 60 MG CAP PO SCH (10:20)
[2023-08-20] MEDS: Vancomycin 1 GM in Premix Bag 1 BAG IVPB SCH (10:21)
[2023-08-20] MEDS: Montelukast Sodium 10 mg Tablet PO SCH (21:40)
[2023-08-20] MEDS: Saccharomyces boulardii 250 MG CAP PO SCH (22:32)
[2023-08-20] MEDS ORDERED: Electrolyte Replacement Protocol 1 EACH FS SCH (23:30)
[2023-08-21 00:12] LABS: Magnesium 1.8 mg/dL (1.6-2.6)
[2023-08-21] MEDS ORDERED: Magnesium 2 GM/50 ML(in water) 2 GM in Premix Bag 1 BAG IVPB SCH (00:45)
[2023-08-21 04:46] LABS: #Basophils 0.1 thou/uL (0.0-0.2); #Eosinphils 0.3 thou/uL (0.0-0.7); #Monocytes 1.3 thou/uL (0.11-0.59); #Neutrophils 17.3 thou/uL (1.40-6.50); %Basophils 0.2 % (0.0-1.0); %Eosinophils 1.3 % (0.0-10.0); %Lymphocytes 6.3 % (21.0-51.0); %Monocytes 6.2 % (0.0-10.0); Hematocrit 29.9 % (36.0-47.0); Hemoglobin 9.7 g/dL (12.0-16.0); Mean Corpuscular HGB CONC 32.4 g/dL (32.0-36.0); Mean Corpuscular Hemoglobin 29.3 pg (27.0-31.0); Mean Corpuscular Volume 90.3 fl (78.0-98.0); Mean Platelet Volume 9.3 fL (7.4-10.4); Platelet Count 500 10x3/uL (130-400); RBC Distribution Width 15.3 % (11.5-14.5); Red Blood Cell (RBC) Count 3.31 mill/uL (4.20-5.40); White Blood Cell (WBC) Count 20.7 10x3/uL (4.8-10.8)
[2023-08-21 05:15] LABS: Anion Gap 12 mmol/L (10-20); BUN (Urea Nitrogen) 14 mg/dL (9.8-20.1); Calc. Creatinine Clearance 44 mL/min (70-130); Calcium 10.5 mg/dL (7.8-10.44); Carbon Dioxide 29 mmol/L (23-31); Chloride 95 mmol/L (98-107); Estimated GFR 53; Glucose 117 mg/dL (83-110); Potassium 3.7 mmol/L (3.5-5.1); Sodium 132 mmol/L (136-145)
[2023-08-21] MEDS: Levothyroxine Sodium 88 MCG TAB PO SCH (05:29)
[2023-08-21] MEDS: Acetaminophen 325 MG TAB PO PRN ×2 (05:29→20:55)
[2023-08-21] MEDS: Vancomycin HCl 125 MG Capsule PO SCH ×4 (05:29→20:55)
[2023-08-21] MEDS ORDERED: Vancomycin 1 GM in Premix Bag 1 BAG IVPB SCH (08:45)
[2023-08-21] MEDS: Amlodipine 5 MG TAB PO SCH (09:20)
[2023-08-21] MEDS: Aspirin Chewable 81 MG TAB PO SCH (09:21)
[2023-08-21] MEDS: CO Q-10 CAPSULE 100 MG PO SCH (09:21)
[2023-08-21] MEDS: Trospium 20 MG TAB PO SCH (09:21)
[2023-08-21] MEDS: Famotidine 20 MG TAB PO SCH (09:21)
[2023-08-21] MEDS: DULoxetine 60 MG CAP PO SCH (09:21)
[2023-08-21] MEDS: Magnesium Oxide 400 MG TAB PO SCH (09:21)
[2023-08-21] MEDS: Cholecalciferol 1,000 UNITS (25 MCG) TAB PO SCH (09:21)
[2023-08-21] MEDS: Atorvastatin Calcium 10 MG TAB PO SCH (09:21)
[2023-08-21] MEDS: Meropenem 1 GM in Sodium Chloride 0.9% 100 ML IVPB SCH (09:21)
[2023-08-21] MEDS: Calcium Carbonate 500 MG ChewTAB PO SCH ×2 (09:21→20:54)
[2023-08-21 09:41] LABS: Vancomycin, Trough 9.7 ug/mL
[2023-08-21] MEDS ORDERED: VANCOMYCIN (BATCH) 1.25 GM 1.25 GM in Premix Bag 1 BAG IVPB SCH (11:00)
[2023-08-21 15:19] LABS: Magnesium 2.4 mg/dL (1.6-2.6)
[2023-08-21] MEDS: Saccharomyces boulardii 250 MG CAP PO SCH (20:54)
[2023-08-21] MEDS: Cephalexin 250 MG CAP PO SCH (20:54)
[2023-08-21] MEDS: Montelukast Sodium 10 mg Tablet PO SCH (20:55)
[2023-08-22 04:41] LABS: #Basophils 0.1 thou/uL (0.0-0.2); #Eosinphils 0.4 thou/uL (0.0-0.7); #Monocytes 0.8 thou/uL (0.11-0.59); #Neutrophils 8.8 thou/uL (1.40-6.50); %Basophils 0.5 % (0.0-1.0); %Eosinophils 3.3 % (0.0-10.0); %Lymphocytes 12.1 % (21.0-51.0); %Neutrophils 74.6 % (42.0-75.0); Hematocrit 29.6 % (36.0-47.0); Hemoglobin 9.5 g/dL (12.0-16.0); Mean Corpuscular HGB CONC 32.1 g/dL (32.0-36.0); Mean Corpuscular Hemoglobin 29.9 pg (27.0-31.0); Mean Platelet Volume 9.3 fL (7.4-10.4); Platelet Count 518 10x3/uL (130-400); RBC Distribution Width 15.4 % (11.5-14.5); Red Blood Cell (RBC) Count 3.18 mill/uL (4.20-5.40); White Blood Cell (WBC) Count 11.8 10x3/uL (4.8-10.8)
[2023-08-22 04:44] LABS: Mean Corpuscular Volume 93.1 fl (78.0-98.0)
[2023-08-22] MEDS: Vancomycin HCl 125 MG Capsule PO SCH ×4 (04:56→22:25)
[2023-08-22] MEDS: Levothyroxine Sodium 88 MCG TAB PO SCH (04:57)
[2023-08-22 05:06] LABS: Anion Gap 9 mmol/L (10-20); BUN (Urea Nitrogen) 14 mg/dL (9.8-20.1); Calc. Creatinine Clearance 45 mL/min (70-130); Calcium 10.6 mg/dL (7.8-10.44); Carbon Dioxide 32 mmol/L (23-31); Chloride 98 mmol/L (98-107); Estimated GFR 55; Glucose 109 mg/dL (83-110); Potassium 3.8 mmol/L (3.5-5.1); Sodium 135 mmol/L (136-145)
[2023-08-22] MEDS: CO Q-10 CAPSULE 100 MG PO SCH (09:55)
[2023-08-22] MEDS: Calcium Carbonate 500 MG ChewTAB PO SCH (09:55)
[2023-08-22] MEDS: Aspirin Chewable 81 MG TAB PO SCH (09:55)
[2023-08-22] MEDS: Trospium 20 MG TAB PO SCH (09:55)
[2023-08-22] MEDS: Cholecalciferol 1,000 UNITS (25 MCG) TAB PO SCH (09:55)
[2023-08-22] MEDS: Atorvastatin Calcium 10 MG TAB PO SCH (09:55)
[2023-08-22] MEDS: Cephalexin 250 MG CAP PO SCH ×3 (09:55→22:25)
[2023-08-22] MEDS: Magnesium Oxide 400 MG TAB PO SCH (09:56)
[2023-08-22] MEDS: DULoxetine 60 MG CAP PO SCH (09:56)
[2023-08-22] MEDS: Amlodipine 5 MG TAB PO SCH (09:57)
[2023-08-22] MEDS: Saccharomyces boulardii 250 MG CAP PO SCH (22:25)
[2023-08-22] MEDS: Montelukast Sodium 10 mg Tablet PO SCH (22:25)
[2023-08-23 04:44] LABS: #Eosinphils 0.4 thou/uL (0.0-0.7); #Monocytes 0.8 thou/uL (0.11-0.59); %Basophils 0.4 % (0.0-1.0); %Eosinophils 3.7 % (0.0-10.0); %Lymphocytes 14.2 % (21.0-51.0); %Monocytes 8.5 % (0.0-10.0); %Neutrophils 71.4 % (42.0-75.0); Hematocrit 29.9 % (36.0-47.0); Hemoglobin 9.5 g/dL (12.0-16.0); Mean Corpuscular HGB CONC 31.8 g/dL (32.0-36.0); Mean Corpuscular Hemoglobin 29.6 pg (27.0-31.0); Mean Corpuscular Volume 93.1 fl (78.0-98.0); Platelet Count 516 10x3/uL (130-400); RBC Distribution Width 15.3 % (11.5-14.5); Red Blood Cell (RBC) Count 3.21 mill/uL (4.20-5.40); White Blood Cell (WBC) Count 9.7 10x3/uL (4.8-10.8)
[2023-08-23] MEDS: Levothyroxine Sodium 88 MCG TAB PO SCH (05:04)
[2023-08-23] MEDS: Vancomycin HCl 125 MG Capsule PO SCH ×4 (05:04→21:38)
[2023-08-23 05:11] LABS: Anion Gap 10 mmol/L (10-20); BUN (Urea Nitrogen) 10 mg/dL (9.8-20.1); Calc. Creatinine Clearance 50 mL/min (70-130); Calcium 10.2 mg/dL (7.8-10.44); Carbon Dioxide 31 mmol/L (23-31); Chloride 98 mmol/L (98-107); Estimated GFR 61; Glucose 121 mg/dL (83-110); Potassium 3.8 mmol/L (3.5-5.1); Sodium 135 mmol/L (136-145)
[2023-08-23] MEDS: Magnesium Oxide 400 MG TAB PO SCH (09:20)
[2023-08-23] MEDS: Cholecalciferol 1,000 UNITS (25 MCG) TAB PO SCH (09:20)
[2023-08-23] MEDS: CO Q-10 CAPSULE 100 MG PO SCH (09:21)
[2023-08-23] MEDS: Amlodipine 5 MG TAB PO SCH (09:21)
[2023-08-23] MEDS: Cephalexin 250 MG CAP PO SCH (09:21)
[2023-08-23] MEDS: Aspirin Chewable 81 MG TAB PO SCH (09:21)
[2023-08-23] MEDS: Atorvastatin Calcium 10 MG TAB PO SCH (09:21)
[2023-08-23] MEDS: DULoxetine 60 MG CAP PO SCH (09:21)
[2023-08-23] MEDS: Trospium 20 MG TAB PO SCH (09:21)
[2023-08-23] MEDS ORDERED: VANCOMYCIN (BATCH) 1.25 GM 1.25 GM in Premix Bag 1 BAG IVPB SCH (12:15)
[2023-08-23] MEDS: Vancomycin 1 GM in Premix Bag 1 BAG IVPB SCH (13:46)
[2023-08-23] MEDS: Acetaminophen 325 MG TAB PO PRN (14:13)
[2023-08-23] MEDS: Saccharomyces boulardii 250 MG CAP PO SCH (21:36)
[2023-08-23] MEDS: Montelukast Sodium 10 mg Tablet PO SCH (21:36)
[2023-08-24] MEDS: Vancomycin HCl 125 MG Capsule PO SCH ×4 (04:56→21:27)
[2023-08-24] MEDS: Levothyroxine Sodium 88 MCG TAB PO SCH (05:00)
[2023-08-24] MEDS: CO Q-10 CAPSULE 100 MG PO SCH (09:22)
[2023-08-24] MEDS: Cholecalciferol 1,000 UNITS (25 MCG) TAB PO SCH (09:22)
[2023-08-24] MEDS: DULoxetine 60 MG CAP PO SCH (09:22)
[2023-08-24] MEDS: Magnesium Oxide 400 MG TAB PO SCH (09:22)
[2023-08-24] MEDS: Aspirin Chewable 81 MG TAB PO SCH (09:22)
[2023-08-24] MEDS: Trospium 20 MG TAB PO SCH (09:22)
[2023-08-24] MEDS: Atorvastatin Calcium 10 MG TAB PO SCH (09:22)
[2023-08-24] MEDS: Amlodipine 5 MG TAB PO SCH (09:23)
[2023-08-24] MEDS: Acetaminophen 325 MG TAB PO PRN (10:30)
[2023-08-24] MEDS: Vancomycin 1 GM in Premix Bag 1 BAG IVPB SCH (13:49)
[2023-08-24] MEDS: Montelukast Sodium 10 mg Tablet PO SCH (21:27)
[2023-08-24] MEDS: Saccharomyces boulardii 250 MG CAP PO SCH (21:27)
[2023-08-25 04:09] LABS: #Basophils 0.1 thou/uL (0.0-0.2); #Eosinphils 0.3 thou/uL (0.0-0.7); #Monocytes 0.7 thou/uL (0.11-0.59); #Neutrophils 5.7 thou/uL (1.40-6.50); %Basophils 0.7 % (0.0-1.0); %Eosinophils 3.1 % (0.0-10.0); %Monocytes 8.6 % (0.0-10.0); %Neutrophils 66.3 % (42.0-75.0); Hematocrit 31.3 % (36.0-47.0); Hemoglobin 9.9 g/dL (12.0-16.0); Mean Corpuscular HGB CONC 31.6 g/dL (32.0-36.0); Mean Corpuscular Hemoglobin 29.3 pg (27.0-31.0); Mean Corpuscular Volume 92.6 fl (78.0-98.0); Mean Platelet Volume 8.8 fL (7.4-10.4); Platelet Count 514 10x3/uL (130-400); RBC Distribution Width 15.4 % (11.5-14.5); Red Blood Cell (RBC) Count 3.38 mill/uL (4.20-5.40); White Blood Cell (WBC) Count 8.6 10x3/uL (4.8-10.8)
[2023-08-25 04:33] LABS: Anion Gap 12 mmol/L (10-20); BUN (Urea Nitrogen) 11 mg/dL (9.8-20.1); Calc. Creatinine Clearance 53 mL/min (70-130); Calcium 11.1 mg/dL (7.8-10.44); Carbon Dioxide 27 mmol/L (23-31); Chloride 101 mmol/L (98-107); Estimated GFR 65; Glucose 109 mg/dL (83-110); Sodium 136 mmol/L (136-145)
[2023-08-25] MEDS: Vancomycin HCl 125 MG Capsule PO SCH ×4 (05:17→20:15)
[2023-08-25] MEDS: Levothyroxine Sodium 88 MCG TAB PO SCH (05:18)
[2023-08-25] MEDS: Aspirin Chewable 81 MG TAB PO SCH (09:57)
[2023-08-25] MEDS: DULoxetine 60 MG CAP PO SCH (09:57)
[2023-08-25] MEDS: Atorvastatin Calcium 10 MG TAB PO SCH (09:57)
[2023-08-25] MEDS: Amlodipine 5 MG TAB PO SCH (09:57)
[2023-08-25] MEDS: Trospium 20 MG TAB PO SCH (09:59)
[2023-08-25] MEDS: CO Q-10 CAPSULE 100 MG PO SCH (09:59)
[2023-08-25] MEDS: Magnesium Oxide 400 MG TAB PO SCH (09:59)
[2023-08-25] MEDS: Cholecalciferol 1,000 UNITS (25 MCG) TAB PO SCH (09:59)
[2023-08-25 13:22] LABS: Vancomycin, Trough 11.9 ug/mL
[2023-08-25] MEDS: Vancomycin 1 GM in Premix Bag 1 BAG IVPB SCH (15:26)
[2023-08-25] MEDS: Vancomycin (BATCH) 1.5 GM 1.5 GM in Premix Bag 1 BAG IVPB SCH (15:26)
[2023-08-25] MEDS: Sodium Chloride 0.9% 1,000 ML IV SCH (18:02)
[2023-08-25] MEDS: Saccharomyces boulardii 250 MG CAP PO SCH (20:15)
[2023-08-25] MEDS: Montelukast Sodium 10 mg Tablet PO SCH (20:15)
[2023-08-26 04:28] LABS: Hemoglobin 9.1 g/dL (12.0-16.0); White Blood Cell (WBC) Count 9.1 10x3/uL (4.8-10.8)
[2023-08-26 04:29] LABS: #Basophils 0.1 thou/uL (0.0-0.2); #Eosinphils 0.2 thou/uL (0.0-0.7); #Monocytes 0.8 thou/uL (0.11-0.59); #Neutrophils 6.1 thou/uL (1.40-6.50); %Basophils 0.8 % (0.0-1.0); %Eosinophils 2.6 % (0.0-10.0); %Lymphocytes 18.9 % (21.0-51.0); %Monocytes 9.3 % (0.0-10.0); %Neutrophils 67.4 % (42.0-75.0); Mean Corpuscular HGB CONC 31.4 g/dL (32.0-36.0); Mean Corpuscular Hemoglobin 29.4 pg (27.0-31.0); Mean Corpuscular Volume 93.5 fl (78.0-98.0); Platelet Count 494 10x3/uL (130-400); RBC Distribution Width 15.7 % (11.5-14.5)
[2023-08-26 04:53] LABS: Anion Gap 11 mmol/L (10-20); BUN (Urea Nitrogen) 13 mg/dL (9.8-20.1); Calc. Creatinine Clearance 52 mL/min (70-130); Calcium 10.2 mg/dL (7.8-10.44); Carbon Dioxide 27 mmol/L (23-31); Chloride 102 mmol/L (98-107); Estimated GFR 64; Glucose 102 mg/dL (83-110); Sodium 136 mmol/L (136-145)
[2023-08-26] MEDS: Levothyroxine Sodium 88 MCG TAB PO SCH (05:13)
[2023-08-26] MEDS: Vancomycin HCl 125 MG Capsule PO SCH ×4 (05:13→21:19)
[2023-08-26] MEDS: Atorvastatin Calcium 10 MG TAB PO SCH (09:36)
[2023-08-26] MEDS: DULoxetine 60 MG CAP PO SCH (09:36)
[2023-08-26] MEDS: Aspirin Chewable 81 MG TAB PO SCH (09:37)
[2023-08-26] MEDS: Magnesium Oxide 400 MG TAB PO SCH (09:37)
[2023-08-26] MEDS: Trospium 20 MG TAB PO SCH (09:37)
[2023-08-26] MEDS: Amlodipine 5 MG TAB PO SCH (09:37)
[2023-08-26] MEDS: CO Q-10 CAPSULE 100 MG PO SCH (09:37)
[2023-08-26] MEDS: Sodium Chloride 0.9% 1,000 ML IV SCH (09:37)
[2023-08-26 09:51] VITALS: BMI 27.0
[2023-08-26] MEDS: Vancomycin (BATCH) 1.5 GM 1.5 GM in Premix Bag 1 BAG IVPB SCH (14:44)
[2023-08-26] MEDS: Saccharomyces boulardii 250 MG CAP PO SCH (21:19)
[2023-08-26] MEDS: Montelukast Sodium 10 mg Tablet PO SCH (21:19)
[2023-08-27 04:32] LABS: #Basophils 0.1 thou/uL (0.0-0.2); #Eosinphils 0.2 thou/uL (0.0-0.7); #Monocytes 0.8 thou/uL (0.11-0.59); #Neutrophils 6.5 thou/uL (1.40-6.50); %Basophils 0.8 % (0.0-1.0); %Eosinophils 2.6 % (0.0-10.0); %Monocytes 8.2 % (0.0-10.0); %Neutrophils 70.7 % (42.0-75.0); Hematocrit 29.7 % (36.0-47.0); Hemoglobin 9.2 g/dL (12.0-16.0); Mean Corpuscular Hemoglobin 28.8 pg (27.0-31.0); Mean Corpuscular Volume 93.1 fl (78.0-98.0); Mean Platelet Volume 9.4 fL (7.4-10.4); Platelet Count 486 10x3/uL (130-400); RBC Distribution Width 15.9 % (11.5-14.5); Red Blood Cell (RBC) Count 3.19 mill/uL (4.20-5.40); White Blood Cell (WBC) Count 9.2 10x3/uL (4.8-10.8)
[2023-08-27] MEDS: Levothyroxine Sodium 88 MCG TAB PO SCH (04:41)
[2023-08-27] MEDS: Vancomycin HCl 125 MG Capsule PO SCH ×4 (04:41→21:17)
[2023-08-27 05:07] LABS: Anion Gap 11 mmol/L (10-20); BUN (Urea Nitrogen) 14 mg/dL (9.8-20.1); Calc. Creatinine Clearance 50 mL/min (70-130); Calcium 10.8 mg/dL (7.8-10.44); Carbon Dioxide 26 mmol/L (23-31); Chloride 104 mmol/L (98-107); Estimated GFR 65; Glucose 97 mg/dL (83-110); Sodium 137 mmol/L (136-145)
[2023-08-27] MEDS: Aspirin Chewable 81 MG TAB PO SCH (08:56)
[2023-08-27] MEDS: Magnesium Oxide 400 MG TAB PO SCH (08:56)
[2023-08-27] MEDS: DULoxetine 60 MG CAP PO SCH (08:56)
[2023-08-27] MEDS: Amlodipine 5 MG TAB PO SCH (08:56)
[2023-08-27] MEDS: Atorvastatin Calcium 10 MG TAB PO SCH (08:56)
[2023-08-27] MEDS: Trospium 20 MG TAB PO SCH (08:56)
[2023-08-27] MEDS: CO Q-10 CAPSULE 100 MG PO SCH (08:56)
[2023-08-27] MEDS: SODIUM CHLORIDE IVPB SCH (16:34)
[2023-08-27] MEDS: DAPTOMYCIN IVPB SCH (16:34)
[2023-08-27] MEDS: ADMIXTURE FEE IVPB SCH (16:34)
[2023-08-27] MEDS: Montelukast Sodium 10 mg Tablet PO SCH (21:17)
[2023-08-27] MEDS: Saccharomyces boulardii 250 MG CAP PO SCH (21:17)
[2023-08-28 04:22] LABS: #Basophils 0.1 thou/uL (0.0-0.2); #Eosinphils 0.2 thou/uL (0.0-0.7); #Monocytes 0.7 thou/uL (0.11-0.59); %Basophils 0.7 % (0.0-1.0); %Eosinophils 2.6 % (0.0-10.0); %Lymphocytes 18.3 % (21.0-51.0); %Monocytes 8.6 % (0.0-10.0); %Neutrophils 69.3 % (42.0-75.0); Hematocrit 28.8 % (36.0-47.0); Mean Corpuscular HGB CONC 31.3 g/dL (32.0-36.0); Mean Corpuscular Hemoglobin 29.2 pg (27.0-31.0); Mean Corpuscular Volume 93.5 fl (78.0-98.0); Mean Platelet Volume 9.3 fL (7.4-10.4); Platelet Count 476 10x3/uL (130-400); RBC Distribution Width 15.9 % (11.5-14.5); Red Blood Cell (RBC) Count 3.08 mill/uL (4.20-5.40); White Blood Cell (WBC) Count 8.6 10x3/uL (4.8-10.8)
[2023-08-28 05:01] LABS: Anion Gap 13 mmol/L (10-20); BUN (Urea Nitrogen) 17 mg/dL (9.8-20.1); Calc. Creatinine Clearance 44 mL/min (70-130); Calcium 11.1 mg/dL (7.8-10.44); Carbon Dioxide 26 mmol/L (23-31); Chloride 101 mmol/L (98-107); Estimated GFR 57; Glucose 104 mg/dL (83-110); Sodium 136 mmol/L (136-145)
[2023-08-28] MEDS: Levothyroxine Sodium 88 MCG TAB PO SCH (05:17)
[2023-08-28] MEDS: Atorvastatin Calcium 10 MG TAB PO SCH (08:10)
[2023-08-28] MEDS: Trospium 20 MG TAB PO SCH (08:10)
[2023-08-28] MEDS: Amlodipine 5 MG TAB PO SCH (08:10)
[2023-08-28] MEDS: CO Q-10 CAPSULE 100 MG PO SCH (08:10)
[2023-08-28] MEDS: DULoxetine 60 MG CAP PO SCH (08:12)
[2023-08-28] MEDS: Aspirin Chewable 81 MG TAB PO SCH (08:12)
[2023-08-28] MEDS: Magnesium Oxide 400 MG TAB PO SCH (08:12)
[2023-08-28] MEDS: Vancomycin HCl 125 MG Capsule PO SCH ×2 (08:12→20:50)
[2023-08-28] MEDS: SODIUM CHLORIDE IVPB SCH (14:17)
[2023-08-28] MEDS: DAPTOMYCIN IVPB SCH (14:17)
[2023-08-28] MEDS: ADMIXTURE FEE IVPB SCH (14:17)
[2023-08-28] MEDS: Montelukast Sodium 10 mg Tablet PO SCH (20:50)
[2023-08-28] MEDS: Saccharomyces boulardii 250 MG CAP PO SCH (20:50)
[2023-08-28] MEDS ORDERED: Famotidine 20 MG TAB PO SCH (23:45)
[2023-08-28] MEDS ORDERED: Calcium Carbonate 500 MG ChewTAB PO PRN (23:55)
[2023-08-28] MEDS ORDERED: Famotidine 20 MG TAB PO PRN (23:57)
[2023-08-29 04:40] LABS: #Basophils 0.1 thou/uL (0.0-0.2); #Eosinphils 0.2 thou/uL (0.0-0.7); #Monocytes 0.7 thou/uL (0.11-0.59); #Neutrophils 5.4 thou/uL (1.40-6.50); %Basophils 0.9 % (0.0-1.0); %Eosinophils 2.9 % (0.0-10.0); %Lymphocytes 18.1 % (21.0-51.0); %Monocytes 8.6 % (0.0-10.0); Hemoglobin 9.5 g/dL (12.0-16.0); Mean Corpuscular HGB CONC 30.6 g/dL (32.0-36.0); Mean Corpuscular Hemoglobin 29.1 pg (27.0-31.0); Mean Corpuscular Volume 95.1 fl (78.0-98.0); Mean Platelet Volume 9.4 fL (7.4-10.4); Platelet Count 463 10x3/uL (130-400); RBC Distribution Width 16.3 % (11.5-14.5); Red Blood Cell (RBC) Count 3.26 mill/uL (4.20-5.40); White Blood Cell (WBC) Count 7.8 10x3/uL (4.8-10.8)
[2023-08-29 05:13] LABS: Anion Gap 15 mmol/L (10-20); BUN (Urea Nitrogen) 20 mg/dL (9.8-20.1); Calc. Creatinine Clearance 40 mL/min (70-130); Calcium 10.5 mg/dL (7.8-10.44); Carbon Dioxide 23 mmol/L (23-31); Chloride 102 mmol/L (98-107); Estimated GFR 50; Glucose 108 mg/dL (83-110); Potassium 4.4 mmol/L (3.5-5.1); Sodium 136 mmol/L (136-145)
[2023-08-29] MEDS: Levothyroxine Sodium 88 MCG TAB PO SCH (06:02)
[2023-08-29 07:27] VITALS: BP 127/60; TEMP 98
[2023-08-29] MEDS: Vancomycin HCl 125 MG Capsule PO SCH (08:16)
[2023-08-29] MEDS: Amlodipine 5 MG TAB PO SCH (08:16)
[2023-08-29] MEDS: Aspirin Chewable 81 MG TAB PO SCH (08:16)
[2023-08-29] MEDS: Atorvastatin Calcium 10 MG TAB PO SCH (08:16)
[2023-08-29] MEDS: CO Q-10 CAPSULE 100 MG PO SCH (08:16)
[2023-08-29] MEDS: Trospium 20 MG TAB PO SCH (08:16)
[2023-08-29] MEDS: Magnesium Oxide 400 MG TAB PO SCH (08:16)
[2023-08-29] MEDS: DULoxetine 60 MG CAP PO SCH (08:17)
[2023-09-04] MEDS ORDERED: Vancomycin HCl 125 MG Capsule PO SCH (09:00)
[2023-09-12] MEDS ORDERED: Vancomycin HCl 125 MG Capsule PO SCH (09:00)
[2023-09-22] MEDS ORDERED: Vancomycin HCl 125 MG Capsule PO SCH (09:00)
== END 2023-08-29 10:40 | DRG 871 ==
LOC: ERS 21:09 → 2NO 22:47 → OBSVTOIN 08-14 11:06
PROVIDERS: ADMIT Student in an Organized Health Care Education/Training Program; ATTEND Hospitalist
PROC: 3E03329 Introduction of Other Anti-infective into Peripheral Vein, Percutaneous Approach (ICD-10-PCS; principal; 2023-08-14)
PROC: 5A09457 Assistance with Respiratory Ventilation, 24-96 Consecutive Hours, Continuous Positive Airway Pressure (ICD-10-PCS; 2023-08-14)
PROC: 02HV33Z Insertion of Infusion Device into Superior Vena Cava, Percutaneous Approach (ICD-10-PCS; 2023-08-27)
PROC: B548ZZA Ultrasonography of Superior Vena Cava, Guidance (ICD-10-PCS; 2023-08-27)
DX: A41.4 Sepsis due to anaerobes (principal); E43 Unspecified severe protein-calorie malnutrition; A04.72 Enterocolitis due to Clostridium difficile, not specified as recurrent; E87.1 Hypo-osmolality and hyponatremia; N39.0 Urinary tract infection, site not specified; N17.9 Acute kidney failure, unspecified; L03.113 Cellulitis of right upper limb; I82.611 Acute embolism and thrombosis of superficial veins of right upper extremity; I47.29 Other ventricular tachycardia; R78.81 Bacteremia; R65.20 Severe sepsis without septic shock; E86.0 Dehydration; F03.90 Unspecified dementia, unspecified severity, without behavioral disturbance, psychotic disturbance, mood disturbance, and anxiety; E03.9 Hypothyroidism, unspecified; K21.9 Gastro-esophageal reflux disease without esophagitis; H91.90 Unspecified hearing loss, unspecified ear; E78.5 Hyperlipidemia, unspecified; F10.90 Alcohol use, unspecified, uncomplicated; F41.9 Anxiety disorder, unspecified; I12.9 Hypertensive chronic kidney disease with stage 1 through stage 4 chronic kidney disease, or unspecified chronic kidney disease; N18.30 Chronic kidney disease, stage 3 unspecified; K11.20 Sialoadenitis, unspecified; R22.1 Localized swelling, mass and lump, neck; R77.8 Other specified abnormalities of plasma proteins; I80.8 Phlebitis and thrombophlebitis of other sites; N32.81 Overactive bladder; Z79.899 Other long term (current) drug therapy; Z79.890 Hormone replacement therapy; Z79.82 Long term (current) use of aspirin; Z98.891 History of uterine scar from previous surgery; Z98.49 Cataract extraction status, unspecified eye; Z98.890 Other specified postprocedural states; Z90.710 Acquired absence of both cervix and uterus; Z68.27 Body mass index [BMI] 27.0-27.9, adult; D63.1 Anemia in chronic kidney disease; R53.1 Weakness; I08.3 Combined rheumatic disorders of mitral, aortic and tricuspid valves; E83.51 Hypocalcemia; Z79.2 Long term (current) use of antibiotics; E83.52 Hypercalcemia; B95.62 Methicillin resistant Staphylococcus aureus infection as the cause of diseases classified elsewhere
CPT/HCPCS: 36415; 36416; 36569; 70450; 70491; 76882; 80048; 80053; 80202; 81001; 82306; 82550; 83605; 83735; 83880; 83970; 84100; 84145; 84443; 84484; 85025; 86735; 87040; 87077; 87186; 87324; 87449; 93005; 93306; 96360; 96361; G0378; J0690; J0878; J2185; J3370; J3370-JW; J3475; J3490; J7050; J7120; Q9967

== ENCOUNTER 2023-09-13 18:09 | Inpatient (IN) | payer MEDICARE, BC ==
[2023-09-13 19:01] LABS: #Eosinphils 0.1 thou/uL (0.0-0.7); #Monocytes 0.2 thou/uL (0.11-0.59); #Neutrophils 8.8 thou/uL (1.40-6.50); %Basophils 0.3 % (0.0-1.0); %Eosinophils 1.1 % (0.0-10.0); %Lymphocytes 0.4 % (21.0-51.0); %Monocytes 2.3 % (0.0-10.0); %Neutrophils 95.5 % (42.0-75.0); Hematocrit 29.3 % (36.0-47.0); Hemoglobin 9.2 g/dL (12.0-16.0); Mean Corpuscular HGB CONC 31.4 g/dL (32.0-36.0); Mean Corpuscular Volume 92.4 fl (78.0-98.0); Mean Platelet Volume 9.9 fL (7.4-10.4); Platelet Count 268 10x3/uL (130-400); RBC Distribution Width 16.8 % (11.5-14.5); Red Blood Cell (RBC) Count 3.17 mill/uL (4.20-5.40); White Blood Cell (WBC) Count 9.2 10x3/uL (4.8-10.8)
[2023-09-13 19:14] LABS: Bacteria/HPF None Seen HPF (None Seen); Bilirubin Negative (Negative); Blood, Urine Trace (Negative); CAUTI Indications for Culture Alt mental st,lethar; Clarity Turbid (Clear); Glucose, Urine (Dipstick) Normal (Negative); Ketone, Urine Negative (Negative); Leukocyte 500 Leu/uL (Negative); Nitrite Negative (Negative); Protein, Urine (Dipstick) Negative (Neg-Trace); Specific Gravity, Urine 1.011 (1.002-1.036); Squamous Epithelial 21-50 HPF (0-3); Urobilinogen Normal mg/dL (Less than 2); WBC/HPF Greater than 50 HPF (0-3)
[2023-09-13 19:20] LABS: Urine Culture Reflex Yes Yes
[2023-09-13] MEDS ORDERED: Ondansetron PF 4 MG/2 ML Vial ONE (19:23)
[2023-09-13 19:25] LABS: ALT (SGPT) 124 U/L (8-55); AST (SGOT) 213 U/L (5-34); Albumin 3.7 g/dL (3.4-4.8); Alkaline Phosphatase 92 U/L (40-110); Anion Gap 13 mmol/L (10-20); BUN (Urea Nitrogen) 20 mg/dL (9.8-20.1); Bilirubin, Total 0.6 mg/dL (0.2-1.2); Calc. Creatinine Clearance 0 mL/min (70-130); Carbon Dioxide 23 mmol/L (23-31); Chloride 103 mmol/L (98-107); Estimated GFR 30; Globulin 2.7 g/dL (2.4-3.5); Glucose 105 mg/dL (83-110); Lipase 77 U/L (8-78); Magnesium 1.6 mg/dL (1.6-2.6); Potassium 4.4 mmol/L (3.5-5.1); Protein, Total 6.4 g/dL (5.8-8.1); Sodium 135 mmol/L (136-145)
[2023-09-13] MEDS ORDERED: cefTRIAXone (ROCEPHIN) 1 GM VIAL ONE (20:03)
[2023-09-13] MEDS ORDERED: Sodium Chloride 0.9% 100 ML ONE (20:03)
[2023-09-13 20:18] LABS: SARS-CoV-2 NAA Rapid Test Not Detected (NotDetected)
[2023-09-13] MEDS ORDERED: Vancomycin 1 GM/200 ML (FROZEN) BAG ONE (21:49)
[2023-09-13] MEDS ORDERED: Sodium Chloride 0.9% 1,000 ML IV SCH (23:45)
[2023-09-14 00:13] VITALS: BMI 24.8
[2023-09-14 02:10] LABS: HBCM Index 0.07 S/CO (0-0.79); HBSAg Index 0.21 S/CO (0-0.99); HIV (1/2) Antibody/Antigen Non-Reactive (NonReactive); Hep A IgM AB Non-Reactive S/CO (NonReactive); Hep A IgM S/CO 0.13 S/CO (0-0.79); Hep B Surf Ag Non-Reactive S/CO (NonReactive); Hep C IgG Ab Non-Reactive S/CO (NonReactive); Hep C Index 0.06 S/CO (0-0.79); Hepatitis B Core IgM Abs Non-Reactive S/CO (NonReactive)
[2023-09-14 04:43] LABS: #Eosinphils 0.3 thou/uL (0.0-0.7); #Monocytes 0.5 thou/uL (0.11-0.59); #Neutrophils 12.2 thou/uL (1.40-6.50); %Basophils 0.3 % (0.0-1.0); %Eosinophils 2.4 % (0.0-10.0); %Lymphocytes 2.1 % (21.0-51.0); %Monocytes 3.7 % (0.0-10.0); %Neutrophils 91.1 % (42.0-75.0); Hematocrit 26.8 % (36.0-47.0); Hemoglobin 8.4 g/dL (12.0-16.0); Mean Corpuscular HGB CONC 31.3 g/dL (32.0-36.0); Mean Corpuscular Hemoglobin 29.3 pg (27.0-31.0); Mean Corpuscular Volume 93.4 fl (78.0-98.0); Platelet Count 253 10x3/uL (130-400); Red Blood Cell (RBC) Count 2.87 mill/uL (4.20-5.40); White Blood Cell (WBC) Count 13.4 10x3/uL (4.8-10.8)
[2023-09-14 06:40] LABS: ALT (SGPT) 111 U/L (8-55); AST (SGOT) 126 U/L (5-34); Albumin 3.1 g/dL (3.4-4.8); Alkaline Phosphatase 79 U/L (40-110); Anion Gap 13 mmol/L (10-20); BUN (Urea Nitrogen) 25 mg/dL (9.8-20.1); Bilirubin, Total 0.4 mg/dL (0.2-1.2); Calc. Creatinine Clearance 27 mL/min (70-130); Calcium 9.3 mg/dL (7.8-10.44); Carbon Dioxide 24 mmol/L (23-31); Chloride 106 mmol/L (98-107); Estimated GFR 30; Globulin 2.7 g/dL (2.4-3.5); Glucose 88 mg/dL (83-110); Protein, Total 5.8 g/dL (5.8-8.1); Sodium 138 mmol/L (136-145)
[2023-09-14] MEDS ORDERED: FLU VACC QS2023(65UP)/MF59C/PF 60 MCG/0.5 ML SYRINGE IM ONE (09:00)
[2023-09-14] MEDS ORDERED: Vancomycin 1 GM in Premix 1 BAG IVPB SCH ×2 (09:00→17:30)
[2023-09-14] MEDS ORDERED: Cefepime 2 GM in Sodium Chloride 0.9% 100 ML IVPB SCH ×2 (09:30→09:45)
[2023-09-14] MEDS: Sodium Chloride 0.9% 1,000 ML IV SCH ×2 (10:25→17:44)
[2023-09-14] MEDS ORDERED: Vancomycin Dose by Levels Sliding Scale (Wt <71) FS SCH (12:15)
[2023-09-14 12:25] LABS: Syphilis Antibody Nonreactive (Nonreactive); Syphilis Antibody Index 0.07 S/CO (<1.00 Non-Reactive)
[2023-09-14 15:58] LABS: Legionella Urinary Ag Negative (Negative); Strep pneumo Urine Ag NEGATIVE (NEGATIVE)
[2023-09-14 17:02] LABS: Vancomycin, Random 9.1 ug/mL (See Comment)
[2023-09-14] MEDS ORDERED: Vancomycin HCl 500 MG in Sodium Chloride 0.9% 100 ML IVPB SCH (18:00)
[2023-09-14] MEDS ORDERED: cefTRIAXone\\ROCEPHIN 1 GM in Sodium Chloride 0.9% 100 ML IVPB SCH (18:00)
[2023-09-14] MEDS: Cefepime 1 GM in Sodium Chloride 0.9% 100 ML IVPB SCH (20:24)
[2023-09-15] MEDS: Sodium Chloride 0.9% 1,000 ML IV SCH ×4 (02:39→18:29)
[2023-09-15 04:16] LABS: #Basophils 0.1 thou/uL (0.0-0.2); #Eosinphils 1.1 thou/uL (0.0-0.7); #Monocytes 0.5 thou/uL (0.11-0.59); #Neutrophils 8.9 thou/uL (1.40-6.50); %Basophils 0.4 % (0.0-1.0); %Eosinophils 9.2 % (0.0-10.0); %Lymphocytes 8.6 % (21.0-51.0); %Monocytes 4.4 % (0.0-10.0); %Neutrophils 77.1 % (42.0-75.0); Hematocrit 26.3 % (36.0-47.0); Hemoglobin 8.3 g/dL (12.0-16.0); Mean Corpuscular HGB CONC 31.6 g/dL (32.0-36.0); Mean Corpuscular Hemoglobin 29.5 pg (27.0-31.0); Mean Corpuscular Volume 93.6 fl (78.0-98.0); Mean Platelet Volume 9.9 fL (7.4-10.4); Platelet Count 265 10x3/uL (130-400); RBC Distribution Width 17.1 % (11.5-14.5); Red Blood Cell (RBC) Count 2.81 mill/uL (4.20-5.40); White Blood Cell (WBC) Count 11.6 10x3/uL (4.8-10.8)
[2023-09-15 08:58] LABS: ALT (SGPT) 75 U/L (8-55); AST (SGOT) 48 U/L (5-34); Albumin 3.3 g/dL (3.4-4.8); Alkaline Phosphatase 82 U/L (40-110); Anion Gap 13 mmol/L (10-20); BUN (Urea Nitrogen) 22 mg/dL (9.8-20.1); Bilirubin, Total 0.4 mg/dL (0.2-1.2); Calc. Creatinine Clearance 35 mL/min (70-130); Calcium 9.8 mg/dL (7.8-10.44); Carbon Dioxide 24 mmol/L (23-31); Chloride 108 mmol/L (98-107); Estimated GFR 42; Globulin 2.5 g/dL (2.4-3.5); Glucose 93 mg/dL (83-110); Potassium 4.7 mmol/L (3.5-5.1); Protein, Total 5.8 g/dL (5.8-8.1); Sodium 140 mmol/L (136-145)
[2023-09-15] MEDS: Cefepime 1 GM in Sodium Chloride 0.9% 100 ML IVPB SCH ×2 (09:30→20:47)
[2023-09-15 18:35] LABS: Vancomycin, Random 14.8 ug/mL (See Comment)
[2023-09-15] MEDS ORDERED: Vancomycin HCl 500 MG in Sodium Chloride 0.9% 100 ML IV SCH (20:30)
[2023-09-16 04:36] LABS: #Basophils 0.1 thou/uL (0.0-0.2); #Monocytes 0.5 thou/uL (0.11-0.59); #Neutrophils 4.9 thou/uL (1.40-6.50); %Basophils 0.8 % (0.0-1.0); %Eosinophils 12.8 % (0.0-10.0); %Monocytes 6.7 % (0.0-10.0); %Neutrophils 61.9 % (42.0-75.0); Hematocrit 28.8 % (36.0-47.0); Hemoglobin 9.1 g/dL (12.0-16.0); Mean Corpuscular HGB CONC 31.6 g/dL (32.0-36.0); Mean Corpuscular Volume 91.7 fl (78.0-98.0); Platelet Count 294 10x3/uL (130-400); RBC Distribution Width 16.6 % (11.5-14.5); Red Blood Cell (RBC) Count 3.14 mill/uL (4.20-5.40); White Blood Cell (WBC) Count 7.9 10x3/uL (4.8-10.8)
[2023-09-16] MEDS: Sodium Chloride 0.9% 1,000 ML IV SCH ×3 (04:46→23:00)
[2023-09-16 04:51] LABS: ALT (SGPT) 50 U/L (8-55); AST (SGOT) 22 U/L (5-34); Albumin 3.4 g/dL (3.4-4.8); Alkaline Phosphatase 81 U/L (40-110); Anion Gap 14 mmol/L (10-20); BUN (Urea Nitrogen) 16 mg/dL (9.8-20.1); Bilirubin, Total 0.3 mg/dL (0.2-1.2); Calc. Creatinine Clearance 41 mL/min (70-130); Calcium 10.3 mg/dL (7.8-10.44); Carbon Dioxide 24 mmol/L (23-31); Chloride 106 mmol/L (98-107); Estimated GFR 50; Globulin 2.6 g/dL (2.4-3.5); Glucose 98 mg/dL (83-110); Potassium 4.8 mmol/L (3.5-5.1); Sodium 139 mmol/L (136-145)
[2023-09-16] MEDS: Levothyroxine Sodium 88 MCG TAB PO SCH (05:48)
[2023-09-16] MEDS: Magnesium Oxide 400 MG TAB PO SCH (08:30)
[2023-09-16] MEDS: Aspirin Chewable 81 MG TAB PO SCH (08:31)
[2023-09-16] MEDS: Cefepime 1 GM in Sodium Chloride 0.9% 100 ML IVPB SCH (08:31)
[2023-09-16] MEDS: Ferrous Sulfate 325 MG TAB PO SCH (08:31)
[2023-09-16] MEDS ORDERED: Montelukast Sodium 10 mg Tablet PO SCH (21:00)
[2023-09-16] MEDS ORDERED: LevoFLOXacin 750 MG TAB PO SCH (21:00)
[2023-09-16] MEDS ORDERED: DULoxetine 30 MG CAP PO SCH (21:00)
[2023-09-16] MEDS ORDERED: Melatonin 3 MG TAB PO SCH (21:00)
[2023-09-17 05:03] LABS: #Basophils 0.1 thou/uL (0.0-0.2); #Eosinphils 0.9 thou/uL (0.0-0.7); #Monocytes 0.4 thou/uL (0.11-0.59); #Neutrophils 3.6 thou/uL (1.40-6.50); %Basophils 0.8 % (0.0-1.0); %Eosinophils 14.3 % (0.0-10.0); %Lymphocytes 21.2 % (21.0-51.0); %Monocytes 6.7 % (0.0-10.0); %Neutrophils 56.5 % (42.0-75.0); Hematocrit 27.8 % (36.0-47.0); Hemoglobin 8.9 g/dL (12.0-16.0); Mean Corpuscular Hemoglobin 29.5 pg (27.0-31.0); Mean Corpuscular Volume 92.1 fl (78.0-98.0); Platelet Count 317 10x3/uL (130-400); RBC Distribution Width 16.3 % (11.5-14.5); Red Blood Cell (RBC) Count 3.02 mill/uL (4.20-5.40); White Blood Cell (WBC) Count 6.4 10x3/uL (4.8-10.8)
[2023-09-17] MEDS: Levothyroxine Sodium 88 MCG TAB PO SCH (05:28)
[2023-09-17 05:36] LABS: ALT (SGPT) 33 U/L (8-55); AST (SGOT) 19 U/L (5-34); Albumin 3.2 g/dL (3.4-4.8); Alkaline Phosphatase 72 U/L (40-110); Anion Gap 12 mmol/L (10-20); BUN (Urea Nitrogen) 10 mg/dL (9.8-20.1); Bilirubin, Total 0.4 mg/dL (0.2-1.2); Calc. Creatinine Clearance 50 mL/min (70-130); Calcium 10.1 mg/dL (7.8-10.44); Carbon Dioxide 21 mmol/L (23-31); Chloride 106 mmol/L (98-107); Estimated GFR 64; Globulin 2.8 g/dL (2.4-3.5); Glucose 97 mg/dL (83-110); Potassium 4.4 mmol/L (3.5-5.1); Sodium 135 mmol/L (136-145)
[2023-09-17] MEDS: Magnesium Oxide 400 MG TAB PO SCH (08:33)
[2023-09-17] MEDS: Aspirin Chewable 81 MG TAB PO SCH (08:34)
[2023-09-17] MEDS: Ferrous Sulfate 325 MG TAB PO SCH (08:36)
[2023-09-17] MEDS: Sodium Chloride 0.9% 1,000 ML IV SCH (10:05)
[2023-09-17 11:41] VITALS: BP 164/79; TEMP 98
== END 2023-09-17 14:17 | DRG 871 ==
LOC: ERS 18:09 → 2NO 20:56
PROVIDERS: ADMIT Family Medicine; ATTEND Family Medicine
DX: A41.9 Sepsis, unspecified organism (principal); G93.41 Metabolic encephalopathy; J18.9 Pneumonia, unspecified organism; N39.0 Urinary tract infection, site not specified; R65.20 Severe sepsis without septic shock; A04.72 Enterocolitis due to Clostridium difficile, not specified as recurrent; N17.9 Acute kidney failure, unspecified; Y95 Nosocomial condition; Z66 Do not resuscitate; R74.01 Elevation of levels of liver transaminase levels; E03.9 Hypothyroidism, unspecified; K21.9 Gastro-esophageal reflux disease without esophagitis; E78.5 Hyperlipidemia, unspecified; F03.90 Unspecified dementia, unspecified severity, without behavioral disturbance, psychotic disturbance, mood disturbance, and anxiety; D64.9 Anemia, unspecified; F10.90 Alcohol use, unspecified, uncomplicated; Z90.710 Acquired absence of both cervix and uterus; Z98.49 Cataract extraction status, unspecified eye; Z11.52 Encounter for screening for COVID-19; Z79.890 Hormone replacement therapy; Z79.899 Other long term (current) drug therapy; Z87.891 Personal history of nicotine dependence
CPT/HCPCS: 36415; 36416; 51701; 70450; 71045; 74230; 76705; 80053; 80074; 80202; 81001; 83605; 83690; 83735; 84145; 85025; 86780; 87040; 87081; 87086; 87389; 87449; 87899; 93005; 96365; 96366; 96375; J0692; J0696; J1650; J2405; J3370; J3370-JW; J3490; J7050

== ENCOUNTER 2023-10-06 09:10 | Inpatient (IN) | payer MEDICARE, BC ==
[2023-10-06 10:47] LABS: ALT (SGPT) 7 U/L (8-55); AST (SGOT) 10 U/L (5-34); Albumin 2.9 g/dL (3.4-4.8); Alkaline Phosphatase 87 U/L (40-110); Anion Gap 15 mmol/L (10-20); BUN (Urea Nitrogen) 27 mg/dL (9.8-20.1); Bilirubin, Total 0.9 mg/dL (0.2-1.2); Calc. Creatinine Clearance 0 mL/min (70-130); Calcium 9.4 mg/dL (7.8-10.44); Carbon Dioxide 22 mmol/L (23-31); Chloride 101 mmol/L (98-107); Estimated GFR 30; Globulin 3.1 g/dL (2.4-3.5); Glucose 147 mg/dL (83-110); Lipase 8 U/L (8-78); Magnesium 1.6 mg/dL (1.6-2.6); Sodium 134 mmol/L (136-145)
[2023-10-06 10:49] LABS: Hematocrit 30.6 % (36.0-47.0); Hemoglobin 9.9 g/dL (12.0-16.0); Mean Corpuscular HGB CONC 32.4 g/dL (32.0-36.0); Mean Corpuscular Hemoglobin 29.6 pg (27.0-31.0); Mean Corpuscular Volume 91.3 fl (78.0-98.0); Mean Platelet Volume 9.5 fL (7.4-10.4); Platelet Count 408 10x3/uL (130-400); RBC Distribution Width 16.9 % (11.5-14.5); Red Blood Cell (RBC) Count 3.35 mill/uL (4.20-5.40)
[2023-10-06 10:50] LABS: Delete Auto Diff?? YES; Manual Diff?? YES
[2023-10-06 11:06] LABS: SARS-CoV-2 NAA Rapid Test Not Detected (NotDetected)
[2023-10-06 11:08] LABS: Bilirubin Negative (Negative); Blood, Urine Negative (Negative); CAUTI Indications for Culture Alt mental st,lethar; Clarity Turbid (Clear); Glucose, Urine (Dipstick) Normal (Negative); Ketone, Urine Negative (Negative); Leukocyte 250 Leu/uL (Negative); Nitrite Negative (Negative); Protein, Urine (Dipstick) 50 mg/dL (Neg-Trace); RBC/HPF 0-3 HPF (0-3); Specific Gravity, Urine 1.018 (1.002-1.036); Urobilinogen Normal mg/dL (Less than 2); pH, Urine 5.5 (5.0-9.0)
[2023-10-06 11:10] LABS: Bacteria/HPF 1+ HPF (None Seen)
[2023-10-06 11:11] LABS: Urine Culture Reflex Yes Yes
[2023-10-06 11:27] LABS: Troponin I Less than 0.010 ng/mL (< 0.028)
[2023-10-06 11:38] LABS: Band 23 % (5-11); Burr Cells SLIGHT = 2-5 cells HPF (0-1); CellaVision Operator ID LAB.GE; Lymphocytes 6 % (21-51); Metamyelocyte 1 % (0-0); Monocytes 7 % (0-10); Neutrophil 63 % (42-75); Platelet Adequacy Comment Platelets Increased; Polychromasia MODERATE = 3-4 cells HPF (0-2); Total Cell Count 101; Toxic Granulation SLIGHT; Vacuoles SLIGHT
[2023-10-06] MEDS ORDERED: Sodium Chloride 0.9% 100 ML ONE (11:52)
[2023-10-06] MEDS ORDERED: Cefepime 2 GM VIAL ONE (11:52)
[2023-10-06] MEDS ORDERED: Vancomycin 1 GM/200 ML (FROZEN) BAG ONE (12:37)
[2023-10-06] MEDS ORDERED: Acetaminophen 325 MG TAB PO PRN (13:54)
[2023-10-06] MEDS ORDERED: Senokot S 8.6-50 MG TAB PO PRN (13:54)
[2023-10-06] MEDS ORDERED: [UNRECOGNIZED DRUG - OTHER] IVPB PRN (14:40)
[2023-10-06] MEDS ORDERED: VANCOMYCIN IVPB PRN (14:40)
[2023-10-06] MEDS: Lactated Ringer's 1,000 ML IV SCH (16:12)
[2023-10-06 17:15] VITALS: BMI 25.1
[2023-10-06 18:02] LABS: Legionella Urinary Ag Negative (Negative); Strep pneumo Urine Ag NEGATIVE (NEGATIVE)
[2023-10-06] MEDS ORDERED: Vancomycin Dose by Levels Sliding Scale (Wt <71) FS SCH (19:15)
[2023-10-06] MEDS ORDERED: Vancomycin HCl 500 MG in Sodium Chloride 0.9% 100 ML IVPB SCH (20:00)
[2023-10-07] MEDS: Lactated Ringer's 1,000 ML IV SCH ×2 (03:57→22:19)
[2023-10-07 06:08] LABS: Hematocrit 26.1 % (36.0-47.0); Hemoglobin 8.4 g/dL (12.0-16.0); Mean Corpuscular HGB CONC 32.2 g/dL (32.0-36.0); Mean Corpuscular Hemoglobin 29.3 pg (27.0-31.0); Mean Corpuscular Volume 90.9 fl (78.0-98.0); Mean Platelet Volume 8.9 fL (7.4-10.4); Platelet Count 354 10x3/uL (130-400); RBC Distribution Width 16.9 % (11.5-14.5); Red Blood Cell (RBC) Count 2.87 mill/uL (4.20-5.40); White Blood Cell (WBC) Count 34.2 10x3/uL (4.8-10.8)
[2023-10-07 06:18] LABS: Delete Auto Diff?? YES; Manual Diff?? YES
[2023-10-07 06:33] LABS: ALT (SGPT) Less than 7 U/L (8-55); AST (SGOT) 11 U/L (5-34); Albumin 2.4 g/dL (3.4-4.8); Alkaline Phosphatase 84 U/L (40-110); Anion Gap 11 mmol/L (10-20); BUN (Urea Nitrogen) 22 mg/dL (9.8-20.1); Bilirubin, Total 0.6 mg/dL (0.2-1.2); Calc. Creatinine Clearance 44 mL/min (70-130); Calcium 8.9 mg/dL (7.8-10.44); Carbon Dioxide 24 mmol/L (23-31); Chloride 106 mmol/L (98-107); Estimated GFR 58; Globulin 2.8 g/dL (2.4-3.5); Glucose 93 mg/dL (83-110); Potassium 3.4 mmol/L (3.5-5.1); Protein, Total 5.2 g/dL (5.8-8.1); Sodium 138 mmol/L (136-145)
[2023-10-07 06:50] LABS: Anisocytosis SLIGHT = 6-15 cells HPF (0-5); Band 1 % (5-11); CellaVision Operator ID lab.sh2; Lymphocytes 2 % (21-51); Macrocytosis SLIGHT = 6-15 cells HPF (0-5); Monocytes 1 % (0-10); Neutrophil 96 % (42-75); Ovalocytes SLIGHT = 2-5 cells HPF (0-1); Platelet Adequacy Comment Platelets Normal; Polychromasia SLIGHT = 2-3 cells HPF (0-2); Total Cell Count 99
[2023-10-07] MEDS ORDERED: Potassium Chloride 20 MEQ TAB PO SCH (09:00)
[2023-10-07 09:25] LABS: Vancomycin, Random 19.3 ug/mL (See Comment)
[2023-10-07] MEDS ORDERED: Cefepime 1 GM in Sodium Chloride 0.9% 100 ML IVPB SCH ×2 (12:00→23:59)
[2023-10-07] MEDS ORDERED: Vancomycin 1 GM in Premix 1 BAG IVPB SCH ×2 (13:00→22:00)
[2023-10-07] MEDS ORDERED: Iopamidol-370 76% 500 ML MDV (1 ML CHARGE) ONE (13:00)
[2023-10-07] MEDS ORDERED: Non-Formulary Item 1 EACH (Acetaminophen [Tylenol] 325 MG Capsule) PO PRN (16:51)
[2023-10-07] MEDS ORDERED: Meloxicam 15 MG TAB PO PRN (16:51)
[2023-10-07] MEDS ORDERED: Non-Formulary Item 1 EACH (Levocarnitine Tartrate [L-Carnitine] 500 MG Capsule) PO SCH (21:00)
[2023-10-07] MEDS: Saccharomyces boulardii 250 MG CAP PO SCH (22:20)
[2023-10-07] MEDS: Melatonin 3 MG TAB PO SCH (22:20)
[2023-10-07] MEDS: Trospium 20 MG TAB PO SCH (22:20)
[2023-10-07] MEDS: Montelukast Sodium 10 mg Tablet PO SCH (22:20)
[2023-10-07] MEDS: Atorvastatin Calcium 10 MG TAB PO SCH (22:20)
[2023-10-07] MEDS: Fidaxomicin 200 MG TAB PO SCH (22:23)
[2023-10-07] MEDS: DULoxetine 60 MG CAP PO SCH (22:28)
[2023-10-07] MEDS: Fish Oil 1,000 MG CAP PO SCH (22:29)
[2023-10-08 05:44] LABS: Hematocrit 26.7 % (36.0-47.0); Hemoglobin 8.6 g/dL (12.0-16.0); Manual Diff?? YES; Mean Corpuscular HGB CONC 32.2 g/dL (32.0-36.0); Mean Corpuscular Hemoglobin 29.1 pg (27.0-31.0); Mean Corpuscular Volume 90.2 fl (78.0-98.0); Mean Platelet Volume 9.2 fL (7.4-10.4); Platelet Count 376 10x3/uL (130-400); RBC Distribution Width 17.2 % (11.5-14.5); Red Blood Cell (RBC) Count 2.96 mill/uL (4.20-5.40); White Blood Cell (WBC) Count 29.9 10x3/uL (4.8-10.8)
[2023-10-08] MEDS: Levothyroxine Sodium 88 MCG TAB PO SCH (05:51)
[2023-10-08 06:09] LABS: Delete Auto Diff?? YES
[2023-10-08 06:20] LABS: ALT (SGPT) Less than 7 U/L (8-55); AST (SGOT) 21 U/L (5-34); Albumin 2.4 g/dL (3.4-4.8); Alkaline Phosphatase 129 U/L (40-110); Anion Gap 12 mmol/L (10-20); BUN (Urea Nitrogen) 19 mg/dL (9.8-20.1); Bilirubin, Total 0.7 mg/dL (0.2-1.2); Calc. Creatinine Clearance 51 mL/min (70-130); Calcium 9.1 mg/dL (7.8-10.44); Carbon Dioxide 23 mmol/L (23-31); Chloride 107 mmol/L (98-107); Estimated GFR 69; Globulin 2.7 g/dL (2.4-3.5); Glucose 99 mg/dL (83-110); Potassium 3.3 mmol/L (3.5-5.1); Protein, Total 5.1 g/dL (5.8-8.1); Sodium 139 mmol/L (136-145)
[2023-10-08 07:00] LABS: Band 5 % (5-11); Hypochromia SLIGHT = 6-15 cells (100X) (0-5/hpf); Lymphocytes 3 % (21-51); Metamyelocyte 1 % (0-0); Monocytes 3 % (0-10); Neutrophil 88 % (42-75)
[2023-10-08] MEDS ORDERED: Electrolyte Replacement Protocol 1 EACH FS SCH (07:00)
[2023-10-08 07:01] LABS: Platelet Adequacy Comment Platelets Normal
[2023-10-08] MEDS: Aspirin Chewable 81 MG TAB PO SCH (08:55)
[2023-10-08] MEDS: Ferrous Sulfate 325 MG TAB PO SCH (08:55)
[2023-10-08] MEDS: Fish Oil 1,000 MG CAP PO SCH ×3 (08:55→20:31)
[2023-10-08] MEDS: Magnesium Oxide 400 MG TAB PO SCH (08:56)
[2023-10-08] MEDS: Fidaxomicin 200 MG TAB PO SCH ×2 (08:56→19:55)
[2023-10-08] MEDS: Multivit, Therapeutic 1 TAB PO SCH (08:56)
[2023-10-08] MEDS: Amlodipine 5 MG TAB PO SCH (08:56)
[2023-10-08] MEDS: CO Q-10 CAPSULE 100 MG PO SCH (08:56)
[2023-10-08] MEDS: Trospium 20 MG TAB PO SCH ×2 (08:56→19:56)
[2023-10-08] MEDS: Potassium Chloride 20 MEQ TAB PO SCH ×2 (08:56→09:13)
[2023-10-08] MEDS ORDERED: RIBOFLAVIN 50 MG PO SCH (09:00)
[2023-10-08] MEDS: Atorvastatin Calcium 10 MG TAB PO SCH (19:55)
[2023-10-08] MEDS: DULoxetine 60 MG CAP PO SCH (19:55)
[2023-10-08] MEDS: Melatonin 3 MG TAB PO SCH (19:56)
[2023-10-08] MEDS: Saccharomyces boulardii 250 MG CAP PO SCH (19:56)
[2023-10-08] MEDS: Montelukast Sodium 10 mg Tablet PO SCH (19:56)
[2023-10-08 22:12] LABS: Mycoplasma pneumoniae IgG AB 102 U/mL (0-99); Mycoplasma pneumoniae IgM AB Less than 770 U/mL (0-769)
[2023-10-09 05:56] LABS: Hemoglobin 8.5 g/dL (12.0-16.0); Manual Diff?? YES; Mean Corpuscular HGB CONC 31.5 g/dL (32.0-36.0); Mean Corpuscular Hemoglobin 29.3 pg (27.0-31.0); Mean Corpuscular Volume 93.1 fl (78.0-98.0); Mean Platelet Volume 9.1 fL (7.4-10.4); Platelet Count 381 10x3/uL (130-400); RBC Distribution Width 17.2 % (11.5-14.5); White Blood Cell (WBC) Count 24.7 10x3/uL (4.8-10.8)
[2023-10-09] MEDS: Levothyroxine Sodium 88 MCG TAB PO SCH (05:59)
[2023-10-09 06:07] LABS: Delete Auto Diff?? YES
[2023-10-09 06:20] LABS: ALT (SGPT) 9 U/L (8-55); AST (SGOT) 15 U/L (5-34); Albumin 2.3 g/dL (3.4-4.8); Alkaline Phosphatase 90 U/L (40-110); Anion Gap 12 mmol/L (10-20); BUN (Urea Nitrogen) 19 mg/dL (9.8-20.1); Bilirubin, Total 0.6 mg/dL (0.2-1.2); Calc. Creatinine Clearance 53 mL/min (70-130); Calcium 9.1 mg/dL (7.8-10.44); Carbon Dioxide 24 mmol/L (23-31); Chloride 108 mmol/L (98-107); Estimated GFR 72; Globulin 2.8 g/dL (2.4-3.5); Glucose 96 mg/dL (83-110); Potassium 3.4 mmol/L (3.5-5.1); Protein, Total 5.1 g/dL (5.8-8.1); Sodium 141 mmol/L (136-145)
[2023-10-09] MEDS ORDERED: Potassium Chloride 20 MEQ TAB PO SCH ×2 (06:30→07:30)
[2023-10-09] MEDS: Potassium Bicarbonate/Cit Ac 20 MEQ TAB PO SCH ×2 (06:35→06:44)
[2023-10-09 06:49] LABS: Band 21 % (5-11); Burr Cells SLIGHT = 2-5 cells HPF (0-1); CellaVision Operator ID LAB.JMM; Hypochromia SLIGHT = 6-15 cells HPF (0-5); Lymphocytes 3 % (21-51); Macrocytosis SLIGHT = 6-15 cells HPF (0-5); Monocytes 1 % (0-10); Neutrophil 75 % (42-75); Ovalocytes SLIGHT = 2-5 cells HPF (0-1); Platelet Adequacy Comment Platelets Normal; Polychromasia SLIGHT = 2-3 cells HPF (0-2); Total Cell Count 101
[2023-10-09] MEDS: Multivit, Therapeutic 1 TAB PO SCH (09:08)
[2023-10-09] MEDS: Aspirin Chewable 81 MG TAB PO SCH (09:08)
[2023-10-09] MEDS: Magnesium Oxide 400 MG TAB PO SCH (09:08)
[2023-10-09] MEDS: Amlodipine 5 MG TAB PO SCH (09:08)
[2023-10-09] MEDS: Trospium 20 MG TAB PO SCH ×2 (09:08→21:26)
[2023-10-09] MEDS: Fidaxomicin 200 MG TAB PO SCH ×2 (09:09→21:26)
[2023-10-09] MEDS: Ferrous Sulfate 325 MG TAB PO SCH (09:09)
[2023-10-09] MEDS: Fish Oil 1,000 MG CAP PO SCH ×2 (09:14→21:20)
[2023-10-09] MEDS: CO Q-10 CAPSULE 100 MG PO SCH (09:15)
[2023-10-09] MEDS: DULoxetine 60 MG CAP PO SCH (21:25)
[2023-10-09] MEDS: Atorvastatin Calcium 10 MG TAB PO SCH (21:25)
[2023-10-09] MEDS: Montelukast Sodium 10 mg Tablet PO SCH (21:26)
[2023-10-09] MEDS: Saccharomyces boulardii 250 MG CAP PO SCH (21:26)
[2023-10-09] MEDS: Melatonin 3 MG TAB PO SCH (21:26)
[2023-10-10] MEDS: Levothyroxine Sodium 88 MCG TAB PO SCH (04:55)
[2023-10-10 06:30] LABS: Hematocrit 26.2 % (36.0-47.0); Hemoglobin 8.1 g/dL (12.0-16.0); Manual Diff?? YES; Mean Corpuscular HGB CONC 30.9 g/dL (32.0-36.0); Mean Corpuscular Hemoglobin 28.9 pg (27.0-31.0); Mean Corpuscular Volume 93.6 fl (78.0-98.0); Mean Platelet Volume 9.5 fL (7.4-10.4); Platelet Count 394 10x3/uL (130-400); RBC Distribution Width 17.2 % (11.5-14.5); White Blood Cell (WBC) Count 19.3 10x3/uL (4.8-10.8)
[2023-10-10 06:35] LABS: Delete Auto Diff?? YES
[2023-10-10 06:54] LABS: ALT (SGPT) Less than 7 U/L (8-55); AST (SGOT) 12 U/L (5-34); Albumin 2.5 g/dL (3.4-4.8); Alkaline Phosphatase 83 U/L (40-110); Anion Gap 9 mmol/L (10-20); BUN (Urea Nitrogen) 19 mg/dL (9.8-20.1); Bilirubin, Total 0.6 mg/dL (0.2-1.2); Calc. Creatinine Clearance 53 mL/min (70-130); Calcium 9.2 mg/dL (7.8-10.44); Carbon Dioxide 26 mmol/L (23-31); Chloride 109 mmol/L (98-107); Estimated GFR 73; Globulin 2.8 g/dL (2.4-3.5); Glucose 97 mg/dL (83-110); Potassium 3.7 mmol/L (3.5-5.1); Protein, Total 5.3 g/dL (5.8-8.1); Sodium 140 mmol/L (136-145)
[2023-10-10 06:56] LABS: Phosphorus 2.4 mg/dL (2.3-4.7)
[2023-10-10] MEDS ORDERED: Electrolyte Replacement Protocol FS PRN (07:45)
[2023-10-10] MEDS ORDERED: Magnesium 2 GM/50 ML(in water) 2 GM in Premix 1 BAG IVPB SCH (07:45)
[2023-10-10] MEDS: Magnesium Oxide 400 MG TAB PO SCH (08:39)
[2023-10-10] MEDS: Amlodipine 5 MG TAB PO SCH (08:39)
[2023-10-10] MEDS: Fidaxomicin 200 MG TAB PO SCH ×2 (08:39→20:39)
[2023-10-10] MEDS: Aspirin Chewable 81 MG TAB PO SCH (08:39)
[2023-10-10] MEDS: Trospium 20 MG TAB PO SCH ×2 (08:39→20:39)
[2023-10-10] MEDS: Multivit, Therapeutic 1 TAB PO SCH (08:39)
[2023-10-10] MEDS: Ferrous Sulfate 325 MG TAB PO SCH (08:40)
[2023-10-10 08:41] LABS: Anisocytosis MODERATE=16-30 cells HPF (0-5); Band 19 % (5-11); CellaVision Operator ID LAB.CMB; Eosinophils 1 % (0-10); Large Platelets 0.9 % (0-5); Lymphocytes 6 % (21-51); Macrocytosis SLIGHT = 6-15 cells HPF (0-5); Neutrophil 75 % (42-75); Ovalocytes SLIGHT = 2-5 cells HPF (0-1); Platelet Adequacy Comment Platelets Normal; Polychromasia MODERATE = 3-4 cells HPF (0-2); Total Cell Count 107
[2023-10-10] MEDS: CO Q-10 CAPSULE 100 MG PO SCH (10:45)
[2023-10-10] MEDS: Fish Oil 1,000 MG CAP PO SCH ×2 (10:45→20:47)
[2023-10-10] MEDS: Atorvastatin Calcium 10 MG TAB PO SCH (20:39)
[2023-10-10] MEDS: Saccharomyces boulardii 250 MG CAP PO SCH (20:46)
[2023-10-10] MEDS: Melatonin 3 MG TAB PO SCH (20:46)
[2023-10-10] MEDS: Montelukast Sodium 10 mg Tablet PO SCH (20:46)
[2023-10-10] MEDS: DULoxetine 60 MG CAP PO SCH (20:46)
[2023-10-11] MEDS: Levothyroxine Sodium 88 MCG TAB PO SCH (05:26)
[2023-10-11 07:23] LABS: Anion Gap 12 mmol/L (10-20); BUN (Urea Nitrogen) 20 mg/dL (9.8-20.1); Calc. Creatinine Clearance 55 mL/min (70-130); Calcium 9.1 mg/dL (7.8-10.44); Carbon Dioxide 26 mmol/L (23-31); Chloride 107 mmol/L (98-107); Estimated GFR 75; Glucose 101 mg/dL (83-110); Phosphorus 2.5 mg/dL (2.3-4.7); Potassium 3.7 mmol/L (3.5-5.1); Sodium 141 mmol/L (136-145)
[2023-10-11] MEDS ORDERED: Magnesium 2 GM/50 ML(in water) 2 GM in Premix 1 BAG IVPB SCH (09:00)
[2023-10-11] MEDS: CO Q-10 CAPSULE 100 MG PO SCH ×2 (09:27→09:30)
[2023-10-11] MEDS: Fidaxomicin 200 MG TAB PO SCH ×2 (09:28→20:52)
[2023-10-11] MEDS: Magnesium Oxide 400 MG TAB PO SCH (09:28)
[2023-10-11] MEDS: Fish Oil 1,000 MG CAP PO SCH ×2 (09:28→20:51)
[2023-10-11] MEDS: Amlodipine 5 MG TAB PO SCH (09:28)
[2023-10-11] MEDS: Trospium 20 MG TAB PO SCH ×2 (09:28→20:52)
[2023-10-11] MEDS: Ferrous Sulfate 325 MG TAB PO SCH (09:28)
[2023-10-11] MEDS: Aspirin Chewable 81 MG TAB PO SCH (09:28)
[2023-10-11] MEDS: Multivit, Therapeutic 1 TAB PO SCH (09:28)
[2023-10-11] MEDS: Melatonin 3 MG TAB PO SCH (20:51)
[2023-10-11] MEDS: Atorvastatin Calcium 10 MG TAB PO SCH (20:52)
[2023-10-11] MEDS: Montelukast Sodium 10 mg Tablet PO SCH (20:52)
[2023-10-11] MEDS: Saccharomyces boulardii 250 MG CAP PO SCH (20:52)
[2023-10-11] MEDS: DULoxetine 60 MG CAP PO SCH (20:52)
[2023-10-12] MEDS: Levothyroxine Sodium 88 MCG TAB PO SCH (05:22)
[2023-10-12] MEDS: Trospium 20 MG TAB PO SCH ×2 (09:58→20:32)
[2023-10-12] MEDS: Ferrous Sulfate 325 MG TAB PO SCH (09:58)
[2023-10-12] MEDS: Fidaxomicin 200 MG TAB PO SCH ×2 (09:58→20:32)
[2023-10-12] MEDS: Aspirin Chewable 81 MG TAB PO SCH (09:58)
[2023-10-12] MEDS: Fish Oil 1,000 MG CAP PO SCH ×2 (09:58→20:32)
[2023-10-12] MEDS: Multivit, Therapeutic 1 TAB PO SCH (09:58)
[2023-10-12] MEDS: CO Q-10 CAPSULE 100 MG PO SCH (09:58)
[2023-10-12] MEDS: Magnesium Oxide 400 MG TAB PO SCH (09:59)
[2023-10-12] MEDS: Amlodipine 5 MG TAB PO SCH (09:59)
[2023-10-12] MEDS: Saccharomyces boulardii 250 MG CAP PO SCH (20:32)
[2023-10-12] MEDS: DULoxetine 60 MG CAP PO SCH (20:32)
[2023-10-12] MEDS: Montelukast Sodium 10 mg Tablet PO SCH (20:32)
[2023-10-12] MEDS: Melatonin 3 MG TAB PO SCH (21:31)
[2023-10-12] MEDS: Atorvastatin Calcium 10 MG TAB PO SCH (21:31)
[2023-10-13] MEDS: Levothyroxine Sodium 88 MCG TAB PO SCH (05:35)
[2023-10-13 06:11] LABS: Hematocrit 25.8 % (36.0-47.0); Hemoglobin 7.8 g/dL (12.0-16.0); Manual Diff?? YES; Mean Corpuscular HGB CONC 30.2 g/dL (32.0-36.0); Mean Corpuscular Hemoglobin 28.7 pg (27.0-31.0); Mean Corpuscular Volume 94.9 fl (78.0-98.0); Mean Platelet Volume 9.5 fL (7.4-10.4); Platelet Count 403 10x3/uL (130-400); RBC Distribution Width 17.2 % (11.5-14.5); Red Blood Cell (RBC) Count 2.72 mill/uL (4.20-5.40); White Blood Cell (WBC) Count 7.5 10x3/uL (4.8-10.8)
[2023-10-13 06:42] LABS: Anion Gap 11 mmol/L (10-20); BUN (Urea Nitrogen) 19 mg/dL (9.8-20.1); Calc. Creatinine Clearance 57 mL/min (70-130); Calcium 8.9 mg/dL (7.8-10.44); Carbon Dioxide 26 mmol/L (23-31); Chloride 106 mmol/L (98-107); Estimated GFR 78; Glucose 105 mg/dL (83-110); Sodium 139 mmol/L (136-145)
[2023-10-13 06:53] LABS: Delete Auto Diff?? YES
[2023-10-13 07:35] LABS: Band 23 % (5-11); CellaVision Operator ID LAB.GE; Hypochromia SLIGHT = 6-15 cells HPF (0-5); Large Platelets 4.9 % (0-5); Lymphocytes 8 % (21-51); Monocytes 4 % (0-10); Neutrophil 65 % (42-75); Platelet Adequacy Comment Platelets Increased; Polychromasia SLIGHT = 2-3 cells HPF (0-2); Total Cell Count 102
[2023-10-13] MEDS: Aspirin Chewable 81 MG TAB PO SCH (09:22)
[2023-10-13] MEDS: CO Q-10 CAPSULE 100 MG PO SCH (09:22)
[2023-10-13] MEDS: Fidaxomicin 200 MG TAB PO SCH (09:22)
[2023-10-13] MEDS: Ferrous Sulfate 325 MG TAB PO SCH (09:22)
[2023-10-13] MEDS: Multivit, Therapeutic 1 TAB PO SCH (09:23)
[2023-10-13] MEDS: Magnesium Oxide 400 MG TAB PO SCH (09:23)
[2023-10-13] MEDS: Amlodipine 5 MG TAB PO SCH (09:23)
[2023-10-13] MEDS: Trospium 20 MG TAB PO SCH (09:23)
[2023-10-13] MEDS: Fish Oil 1,000 MG CAP PO SCH (09:23)
[2023-10-13 16:24] VITALS: BP 114/74; TEMP 97.8
== END 2023-10-13 17:48 | DRG 371 ==
LOC: ERS 09:10 → T4-B 14:22 → OBSVTOIN 10-07 13:54
PROVIDERS: ADMIT Family Medicine; ATTEND Family Medicine
DX: A04.71 Enterocolitis due to Clostridium difficile, recurrent (principal); G92.8 Other toxic encephalopathy; E87.1 Hypo-osmolality and hyponatremia; N17.9 Acute kidney failure, unspecified; N39.0 Urinary tract infection, site not specified; E03.9 Hypothyroidism, unspecified; K21.9 Gastro-esophageal reflux disease without esophagitis; E78.5 Hyperlipidemia, unspecified; F03.90 Unspecified dementia, unspecified severity, without behavioral disturbance, psychotic disturbance, mood disturbance, and anxiety; N18.9 Chronic kidney disease, unspecified; I12.9 Hypertensive chronic kidney disease with stage 1 through stage 4 chronic kidney disease, or unspecified chronic kidney disease; E87.6 Hypokalemia; Z79.899 Other long term (current) drug therapy; Z79.82 Long term (current) use of aspirin; Z98.890 Other specified postprocedural states; Z90.710 Acquired absence of both cervix and uterus; Z11.52 Encounter for screening for COVID-19
CPT/HCPCS: 36415; 51701; 71045; 71260; 80048; 80053; 80202; 81001; 82140; 83605; 83630; 83690; 83735; 84100; 84145; 84484; 85025; 87040; 87077; 87081; 87086; 87186; 87324; 87449; 87804; 87899; 93005; 96365; 96375; J0692; J1650; J3370; J3370-JW; J3475; J3490; J7120; Q9967; U0002

== ENCOUNTER 2023-10-28 07:11 | Inpatient (IN) | payer MEDICARE, BC ==
[2023-10-28] MEDS ORDERED: Morphine 2 MG/ML VIAL ONE (08:55)
[2023-10-28] MEDS ORDERED: Boostrix 0.5 ML (Tdap) VIAL (>/=7 yrs of age) ONE (08:55)
[2023-10-28 09:04] LABS: #Eosinphils 0.1 thou/uL (0.0-0.7); #Monocytes 0.7 thou/uL (0.11-0.59); #Neutrophils 9.6 thou/uL (1.40-6.50); %Basophils 0.4 % (0.0-1.0); %Eosinophils 0.9 % (0.0-10.0); %Lymphocytes 7.1 % (21.0-51.0); %Monocytes 5.8 % (0.0-10.0); %Neutrophils 85.3 % (42.0-75.0); Hematocrit 26.6 % (36.0-47.0); Hemoglobin 8.3 g/dL (12.0-16.0); Mean Corpuscular HGB CONC 31.2 g/dL (32.0-36.0); Mean Corpuscular Hemoglobin 28.6 pg (27.0-31.0); Mean Corpuscular Volume 91.7 fl (78.0-98.0); Mean Platelet Volume 9.2 fL (7.4-10.4); Platelet Count 557 10x3/uL (130-400); RBC Distribution Width 17.9 % (11.5-14.5); White Blood Cell (WBC) Count 11.3 10x3/uL (4.8-10.8)
[2023-10-28 09:32] LABS: ALT (SGPT) 8 U/L (8-55); AST (SGOT) 14 U/L (5-34); Alkaline Phosphatase 81 U/L (40-110); Anion Gap 10 mmol/L (10-20); BUN (Urea Nitrogen) 15 mg/dL (9.8-20.1); Bilirubin, Total 0.3 mg/dL (0.2-1.2); Calc. Creatinine Clearance 0 mL/min (70-130); Carbon Dioxide 28 mmol/L (23-31); Chloride 102 mmol/L (98-107); Estimated GFR 47; Globulin 4.2 g/dL (2.4-3.5); Glucose 97 mg/dL (83-110); Potassium 4.3 mmol/L (3.5-5.1); Protein, Total 7.2 g/dL (5.8-8.1); Sodium 136 mmol/L (136-145)
[2023-10-28] MEDS ORDERED: Ondansetron PF 4 MG/2 ML Vial IVP PRN (09:38)
[2023-10-28] MEDS ORDERED: Morphine 2 MG/ML VIAL SLOW IVP PRN (09:38)
[2023-10-28 09:40] LABS: PTT 32.9 sec (22.9-36.1); Prothrombin Time 13.6 sec (12.0-14.7)
[2023-10-28] MEDS ORDERED: Non-Formulary Item 1 EACH (Acetaminophen [Tylenol] 325 MG Capsule) PO PRN (09:40)
[2023-10-28] MEDS: Acetaminophen 500 MG TAB PO SCH ×3 (15:39→23:19)
[2023-10-28 15:50] VITALS: BMI 22.3
[2023-10-28] MEDS: Senokot S 8.6-50 MG TAB PO SCH (20:02)
[2023-10-28] MEDS ORDERED: Montelukast Sodium 10 mg Tablet PO SCH (21:00)
[2023-10-28] MEDS ORDERED: DULoxetine 60 MG CAP PO SCH (21:00)
[2023-10-28] MEDS ORDERED: Saccharomyces boulardii 250 MG CAP PO SCH (21:00)
[2023-10-28] MEDS ORDERED: Famotidine/PF 20 mg/2ml Vial SLOW IVP SCH (21:00)
[2023-10-29] MEDS: Acetaminophen 500 MG TAB PO SCH ×2 (05:19→13:22)
[2023-10-29 05:42] LABS: #Basophils 0.1 thou/uL (0.0-0.2); #Eosinphils 0.1 thou/uL (0.0-0.7); #Neutrophils 9.7 thou/uL (1.40-6.50); %Basophils 0.4 % (0.0-1.0); %Eosinophils 0.9 % (0.0-10.0); %Lymphocytes 7.1 % (21.0-51.0); %Monocytes 8.6 % (0.0-10.0); %Neutrophils 82.4 % (42.0-75.0); Hematocrit 27.3 % (36.0-47.0); Hemoglobin 8.4 g/dL (12.0-16.0); Mean Corpuscular HGB CONC 30.8 g/dL (32.0-36.0); Mean Corpuscular Hemoglobin 28.4 pg (27.0-31.0); Mean Corpuscular Volume 92.2 fl (78.0-98.0); Mean Platelet Volume 9.3 fL (7.4-10.4); Platelet Count 543 10x3/uL (130-400); Red Blood Cell (RBC) Count 2.96 mill/uL (4.20-5.40); White Blood Cell (WBC) Count 11.7 10x3/uL (4.8-10.8)
[2023-10-29] MEDS ORDERED: Levothyroxine Sodium 88 MCG TAB PO SCH (06:00)
[2023-10-29 06:04] LABS: Anion Gap 13 mmol/L (10-20); BUN (Urea Nitrogen) 14 mg/dL (9.8-20.1); Calc. Creatinine Clearance 44 mL/min (70-130); Calcium 9.9 mg/dL (7.8-10.44); Carbon Dioxide 23 mmol/L (23-31); Chloride 101 mmol/L (98-107); Estimated GFR 64; Glucose 100 mg/dL (83-110); PTT 28.1 sec (22.9-36.1); Potassium 4.2 mmol/L (3.5-5.1); Prothrombin Time 13.7 sec (12.0-14.7); Sodium 133 mmol/L (136-145)
[2023-10-29 07:25] LABS: Bacteria/HPF 2+ HPF (None Seen); Bilirubin Negative (Negative); Blood, Urine Negative (Negative); CAUTI Indications for Culture Alt mental st,lethar; Clarity Turbid (Clear); Glucose, Urine (Dipstick) Normal (Negative); Ketone, Urine Negative (Negative); Leukocyte 500 Leu/uL (Negative); Nitrite 2+ (Negative); Protein, Urine (Dipstick) 10 mg/dL (Neg-Trace); RBC/HPF 0-3 HPF (0-3); Specific Gravity, Urine 1.012 (1.002-1.036); Squamous Epithelial 0-3 HPF (0-3); Urobilinogen Normal mg/dL (Less than 2); WBC/HPF 21-50 HPF (0-3); pH, Urine 6.5 (5.0-9.0)
[2023-10-29 07:26] LABS: Urine Culture Reflex Yes Yes
[2023-10-29] MEDS ORDERED: Ferrous Sulfate 325 MG TAB PO SCH (08:00)
[2023-10-29] MEDS ORDERED: Amlodipine 5 MG TAB PO SCH (09:00)
[2023-10-29] MEDS ORDERED: Magnesium Oxide 400 MG TAB PO SCH (09:00)
[2023-10-29] MEDS ORDERED: Polyethylene Glycol 3350 17 GM Packet PO SCH (09:00)
[2023-10-29] MEDS: Senokot S 8.6-50 MG TAB PO SCH (09:21)
[2023-10-29 12:42] VITALS: BP 131/71; TEMP 97.9
== END 2023-10-29 14:20 | DRG 563 ==
LOC: ERS 07:11 → SURG A 09:11
PROVIDERS: ADMIT Specialist; ATTEND Specialist
PROC: 2W3CX1Z Immobilization of Right Lower Arm using Splint (ICD-10-PCS; principal; 2023-10-28)
DX: S52.021A Displaced fracture of olecranon process without intraarticular extension of right ulna, initial encounter for closed fracture (principal); S72.401A Unspecified fracture of lower end of right femur, initial encounter for closed fracture; N17.9 Acute kidney failure, unspecified; K21.9 Gastro-esophageal reflux disease without esophagitis; E03.9 Hypothyroidism, unspecified; W19.XXXA Unspecified fall, initial encounter; I10 Essential (primary) hypertension; E78.5 Hyperlipidemia, unspecified; F03.90 Unspecified dementia, unspecified severity, without behavioral disturbance, psychotic disturbance, mood disturbance, and anxiety; Z98.890 Other specified postprocedural states; Y92.9 Unspecified place or not applicable; Z90.710 Acquired absence of both cervix and uterus
CPT/HCPCS: 29105; 36415; 70450; 72125; 80048; 80053; 81001; 85025; 85610; 85730; 86850; 86900; 86901; 87077; 87086; 90471; 90715; 96374; G0390; J2272

== ENCOUNTER 2024-11-25 12:32 | Emergency (ER) | payer MEDICARE ==
[~2024-11-25 12:32] MED LIST changes: -Iopamidol 370 76% 100 ML VIAL ONE; +Iopamidol-370 76% 500 ML MDV (1 ML CHARGE) ONE
[2024-11-25 13:49] LABS: #Basophils 0.04 10x3/uL (0.0-0.2); %Basophils 0.7 % (0.0-1.0); %Eosinophils 3.5 % (0.0-10.0); %Lymphocytes 25.5 % (21.0-51.0); %Monocytes 10.8 % (0.0-10.0); %Neutrophils 58.9 % (42.0-75.0); Hematocrit 31.5 % (36.0-47.0); Mean Corpuscular HGB CONC 31.7 g/dL (32.0-36.0); Mean Corpuscular Hemoglobin 31.1 pg (27.0-31.0); Mean Corpuscular Volume 97.8 fL (78.0-98.0); Mean Platelet Volume 9.8 fL (7.4-10.4); Platelet Count 268 10x3/uL (130-400); RBC Distribution Width 14.4 % (11.5-14.5); Red Blood Cell (RBC) Count 3.22 mill/uL (4.20-5.40)
[2024-11-25 14:15] LABS: ALT (SGPT) 12 U/L (8-55); AST (SGOT) 21 U/L (5-34); Albumin 3.1 g/dL (3.4-4.8); Alkaline Phosphatase 52 U/L (40-110); Anion Gap 13 mmol/L (10-20); BUN (Urea Nitrogen) 22 mg/dL (9.8-20.1); Bilirubin, Total 0.3 mg/dL (0.2-1.2); Calc. Creatinine Clearance 0 mL/min (70-130); Calcium 9.3 mg/dL (7.8-10.44); Carbon Dioxide 21 mmol/L (23-31); Chloride 106 mmol/L (98-107); Estimated GFR 40; Glucose 91 mg/dL (83-110); Protein, Total 6.1 g/dL (5.8-8.1); Sodium 135 mmol/L (136-145)
[2024-11-25 14:19] LABS: Troponin I 0.014 ng/mL (< 0.028)
== END 2024-11-25 15:55 | disposition home or self-care (01) ==
LOC: ERS 12:32
DX: I26.99 Other pulmonary embolism without acute cor pulmonale (principal); E78.5 Hyperlipidemia, unspecified; K21.9 Gastro-esophageal reflux disease without esophagitis; N18.9 Chronic kidney disease, unspecified; Z55.6 Problems related to health literacy; Z79.890 Hormone replacement therapy; Z79.01 Long term (current) use of anticoagulants; Z79.82 Long term (current) use of aspirin; Z79.899 Other long term (current) drug therapy
CPT/HCPCS: 36415; 71045; 71275; 80053; 83880; 84484; 85025; 93005; 94760

== ENCOUNTER 2024-12-04 06:24 | Day surgery (SDC) | payer MEDICARE ==
[2024-12-01 13:56] VITALS: BMI 31.4
[2024-12-04] MEDS ORDERED: fentaNYL PF 100 MCG/2 ML SYRINGE ONE (06:52)
[2024-12-04] MEDS ORDERED: Lidocaine 2% PF 5 ML VIAL ONE (06:52)
[2024-12-04] MEDS ORDERED: PROPOFOL 20 ML ONE (06:52)
[2024-12-04] MEDS ORDERED: LevoFLOXacin D5W 500 mg (100 mL) BAG ONE (07:27)
[2024-12-04] MEDS ORDERED: Ondansetron PF 4 MG/2 ML Vial ONE (07:54)
[2024-12-04] MEDS ORDERED: Dexamethasone 4 mg/ml Vial ONE (07:54)
[2024-12-04] MEDS ORDERED: PHENYLEPHRINE-NS 100 MCG/ML 10 ML SYRINGE ONE (08:02)
[2024-12-04] MEDS ORDERED: Iopamidol 15 ML ONE (08:20)
[2024-12-04] MEDS ORDERED: fentaNYL 50 mcg/mL 1 mL Vial ONE (08:39)
== END 2024-12-04 09:44 | disposition home or self-care (01) ==
LOC: SDC 06:24
PROVIDERS: ATTEND Urology
PROC: BT1FZZZ Fluoroscopy of Left Kidney, Ureter and Bladder (ICD-10-PCS; principal; 2024-12-04)
PROC: 0T778DZ Dilation of Left Ureter with Intraluminal Device, Via Natural or Artificial Opening Endoscopic (ICD-10-PCS; 2024-12-04)
DX: N20.1 Calculus of ureter (principal); N13.30 Unspecified hydronephrosis; I26.99 Other pulmonary embolism without acute cor pulmonale; I12.9 Hypertensive chronic kidney disease with stage 1 through stage 4 chronic kidney disease, or unspecified chronic kidney disease; N18.9 Chronic kidney disease, unspecified; E78.00 Pure hypercholesterolemia, unspecified; E03.9 Hypothyroidism, unspecified; F32.A Depression, unspecified; F41.9 Anxiety disorder, unspecified; K76.0 Fatty (change of) liver, not elsewhere classified; K21.9 Gastro-esophageal reflux disease without esophagitis; J96.01 Acute respiratory failure with hypoxia; Z87.59 Personal history of other complications of pregnancy, childbirth and the puerperium; Z86.73 Personal history of transient ischemic attack (TIA), and cerebral infarction without residual deficits; Z90.710 Acquired absence of both cervix and uterus; Z79.01 Long term (current) use of anticoagulants; Z79.82 Long term (current) use of aspirin; Z79.899 Other long term (current) drug therapy
CPT/HCPCS: 52332; 74420; J1100; J1956; J2405; J2704; J3010; Q9967; C2617

== ENCOUNTER 2024-12-09 21:04 | Inpatient (IN) | payer MEDICARE ==
[2024-12-09 21:46] LABS: #Basophils Less than 0.03 10x3/uL (0.0-0.2); %Basophils 0.2 % (0.0-1.0); %Eosinophils 0.4 % (0.0-10.0); %Lymphocytes 1.4 % (21.0-51.0); %Neutrophils 94.5 % (42.0-75.0); Hematocrit 31.2 % (36.0-47.0); Hemoglobin 10.1 g/dL (12.0-16.0); Mean Corpuscular HGB CONC 32.4 g/dL (32.0-36.0); Mean Corpuscular Hemoglobin 30.7 pg (27.0-31.0); Mean Corpuscular Volume 94.8 fL (78.0-98.0); Mean Platelet Volume 10.2 fL (7.4-10.4); Platelet Count 243 10x3/uL (130-400); Red Blood Cell (RBC) Count 3.29 mill/uL (4.20-5.40)
[2024-12-09 22:44] LABS: Troponin I 0.039 ng/mL (< 0.028)
[2024-12-09 22:49] LABS: Calcium 9.3 mg/dL (7.8-10.44); Chloride 107 mmol/L (98-107); Potassium 4.4 mmol/L (3.5-5.1); Sodium 136 mmol/L (136-145)
[2024-12-09 22:50] LABS: Globulin 3.7 g/dL (2.4-3.5); Glucose 107 mg/dL (83-110); Protein, Total 6.7 g/dL (5.8-8.1)
[2024-12-09 22:51] LABS: Anion Gap 13 mmol/L (10-20); Carbon Dioxide 20 mmol/L (23-31)
[2024-12-09 22:53] LABS: Alkaline Phosphatase 77 U/L (40-110); Bilirubin, Total 0.5 mg/dL (0.3-1.2)
[2024-12-09 22:54] LABS: BUN (Urea Nitrogen) 23 mg/dL (9.8-20.1); Calc. Creatinine Clearance 0 mL/min (70-130); Estimated GFR 44
[2024-12-09 22:55] LABS: ALT (SGPT) 41 U/L (Less than 34)
[2024-12-09 22:56] LABS: AST (SGOT) 63 U/L (11-34)
[2024-12-09 23:05] LABS: Bilirubin Negative (Negative); Blood, Urine 3+ (Negative); CAUTI Indications for Culture Pelvic or flank pain; Glucose, Urine (Dipstick) Normal (Negative); Ketone, Urine Negative (Negative); Leukocyte 250 Leu/uL (Negative); Nitrite Negative (Negative); Protein, Urine (Dipstick) 70 mg/dL (Neg-Trace); RBC/HPF Greater than 50 HPF (0-3); Specific Gravity, Urine 1.018 (1.002-1.036); Squamous Epithelial 0-3 HPF (0-3); Urobilinogen Normal mg/dL (Less than 2); WBC/HPF 21-50 HPF (0-3)
[2024-12-09 23:06] LABS: Bacteria/HPF 1+ HPF (None Seen); Clarity Hazy (Clear)
[2024-12-09 23:07] LABS: Urine Culture Reflex Yes Yes
[2024-12-10] MEDS ORDERED: Ondansetron ODT 4 MG TAB PO PRN (00:29)
[2024-12-10] MEDS ORDERED: Bisacodyl 5 MG TAB PO PRN (00:29)
[2024-12-10] MEDS ORDERED: Morphine 2 MG/ML VIAL ONE (01:01)
[2024-12-10] MEDS ORDERED: Ondansetron PF 4 MG/2 ML Vial ONE (01:01)
[2024-12-10] MEDS ORDERED: Simethicone Chewable 80 MG TAB PO PRN (01:05)
[2024-12-10 02:05] VITALS: BMI 35.2
[2024-12-10] MEDS: Vancomycin 1.5 GRAM/300 ML BAG 1.5 GM in Premix 1 BAG IVPB ONE (02:10)
[2024-12-10] MEDS: Meropenem 1 GM in Sodium Chloride 0.9% 100 ML IVPB SCH (02:10)
[2024-12-10] MEDS ORDERED: Ondansetron PF 4 MG/2 ML Vial IVP PRN (02:15)
[2024-12-10] MEDS ORDERED: Ondansetron ODT 4 MG TAB SL PRN (02:15)
[2024-12-10] MEDS: cefTRIAXone\\ROCEPHIN 2 GM in Sodium Chloride 0.9% 100 ML IVPB SCH (02:47)
[2024-12-10] MEDS: Pantoprazole 40 MG VIAL IVP SCH (02:48)
[2024-12-10 04:24] LABS: #Basophils Less than 0.03 10x3/uL (0.0-0.2); %Basophils 0.1 % (0.0-1.0); %Eosinophils 0.9 % (0.0-10.0); %Lymphocytes 2.9 % (21.0-51.0); %Monocytes 5.1 % (0.0-10.0); %Neutrophils 90.5 % (42.0-75.0); Hematocrit 27.3 % (36.0-47.0); Hemoglobin 8.7 g/dL (12.0-16.0); Mean Corpuscular HGB CONC 31.9 g/dL (32.0-36.0); Mean Corpuscular Volume 97.2 fL (78.0-98.0); Mean Platelet Volume 9.9 fL (7.4-10.4); Platelet Count 209 10x3/uL (130-400); RBC Distribution Width 14.9 % (11.5-14.5); Red Blood Cell (RBC) Count 2.81 mill/uL (4.20-5.40)
[2024-12-10 04:46] LABS: ALT (SGPT) 34 U/L (Less than 34); AST (SGOT) 47 U/L (11-34); Albumin 2.5 g/dL (3.1-4.5); Alkaline Phosphatase 65 U/L (40-110); Anion Gap 12 mmol/L (10-20); BUN (Urea Nitrogen) 22 mg/dL (9.8-20.1); Bilirubin, Total 0.3 mg/dL (0.3-1.2); Calc. Creatinine Clearance 47 mL/min (70-130); Calcium 8.3 mg/dL (7.8-10.44); Carbon Dioxide 20 mmol/L (23-31); Chloride 110 mmol/L (98-107); Estimated GFR 48; Globulin 3.1 g/dL (2.4-3.5); Glucose 104 mg/dL (83-110); Potassium 4.3 mmol/L (3.5-5.1); Protein, Total 5.6 g/dL (5.8-8.1); Sodium 138 mmol/L (136-145)
[2024-12-10] MEDS: Pantoprazole 40 MG DR.TAB PO SCH (08:54)
[2024-12-10] MEDS: Apixaban 5 MG TAB PO SCH ×2 (08:54→21:02)
[2024-12-10] MEDS: Lidocaine 4% Patch TD SCH (08:55)
[2024-12-10] MEDS: Acetaminophen 325 MG TAB PO PRN (08:55)
[2024-12-10] MEDS ORDERED: Senokot S 8.6-50 MG TAB PO PRN (13:16)
[2024-12-10] MEDS ORDERED: Diclofenac 1% 50 GM TOPICAL GEL TP PRN (13:16)
[2024-12-10] MEDS: Simethicone 40 MG/0.6 ML Drop 30 ML BOT PO SCH (17:10)
[2024-12-10] MEDS: DULoxetine 60 MG CAP PO SCH (21:02)
[2024-12-10] MEDS: Acetaminophen 500 MG TAB PO PRN (21:02)
[2024-12-10] MEDS: Fish Oil 1,000 MG CAP PO SCH (21:02)
[2024-12-10] MEDS: Montelukast Sodium 10 mg Tablet PO SCH (21:04)
[2024-12-10] MEDS: Melatonin 3 MG TAB PO SCH (21:04)
[2024-12-10] MEDS: Saccharomyces boulardii 250 MG CAP PO SCH (21:04)
[2024-12-10] MEDS: LIDOCAINE Patch Removal TOP SCH (21:09)
[2024-12-11] MEDS: cefTRIAXone (ROCEPHIN) 2 GM VIAL ONE (04:24)
[2024-12-11 04:52] LABS: #Basophils Less than 0.03 10x3/uL (0.0-0.2); %Basophils 0.3 % (0.0-1.0); %Eosinophils 4.1 % (0.0-10.0); %Lymphocytes 7.1 % (21.0-51.0); %Monocytes 9.6 % (0.0-10.0); %Neutrophils 78.6 % (42.0-75.0); Hematocrit 28.4 % (36.0-47.0); Mean Corpuscular HGB CONC 31.7 g/dL (32.0-36.0); Mean Corpuscular Hemoglobin 31.4 pg (27.0-31.0); Mean Platelet Volume 10.3 fL (7.4-10.4); Platelet Count 218 10x3/uL (130-400); RBC Distribution Width 14.7 % (11.5-14.5); Red Blood Cell (RBC) Count 2.87 mill/uL (4.20-5.40)
[2024-12-11 05:48] LABS: Albumin 2.4 g/dL (3.1-4.5); Alkaline Phosphatase 67 U/L (40-110); Anion Gap 15 mmol/L (10-20); BUN (Urea Nitrogen) 21 mg/dL (9.8-20.1); Bilirubin, Total 0.2 mg/dL (0.3-1.2); Calc. Creatinine Clearance 48 mL/min (70-130); Calcium 8.2 mg/dL (7.8-10.44); Carbon Dioxide 17 mmol/L (23-31); Chloride 107 mmol/L (98-107); Estimated GFR 49; Globulin 4.4 g/dL (2.4-3.5); Glucose 72 mg/dL (83-110); Sodium 133 mmol/L (136-145)
[2024-12-11] MEDS: Levothyroxine Sodium 88 MCG TAB PO SCH (06:28)
[2024-12-11 07:15] LABS: Potassium 4.2 mmol/L (3.5-5.1); Protein, Total 5.7 g/dL (5.8-8.1)
[2024-12-11 07:18] LABS: ALT (SGPT) 26 U/L (Less than 34); AST (SGOT) 34 U/L (11-34)
[2024-12-11] MEDS ORDERED: Diclofenac 1% 50 GM TOPICAL GEL TP PRN (08:20)
[2024-12-11] MEDS: Magnesium Oxide 400 MG TAB PO SCH (09:00)
[2024-12-11] MEDS: Aspirin Chewable 81 MG TAB PO SCH (09:00)
[2024-12-11] MEDS: Polyethylene Glycol 3350 17 GM Packet PO SCH (09:00)
[2024-12-11] MEDS: Multivitamin W/ Minerals 1 TAB PO SCH (09:00)
[2024-12-11] MEDS ORDERED: [UNRECOGNIZED DRUG - OTHER] PO SCH (09:00)
[2024-12-11] MEDS: Atorvastatin Calcium 20 MG TAB PO SCH (09:00)
[2024-12-11] MEDS: Ferrous Sulfate 325 MG TAB PO SCH (09:00)
[2024-12-11] MEDS ORDERED: HYDROcodone/Acetaminophen 5/325 mg Tablet PO PRN (09:00)
[2024-12-11] MEDS: Dicyclomine 10 MG CAP PO SCH (09:07)
[2024-12-11] MEDS: HYDROcodone/Acetaminophen 5/325 mg Tablet PO PRN (09:07)
[2024-12-11] MEDS ORDERED: Tamsulosin HCl 0.4 MG CAP PO SCH (09:15)
[2024-12-11] MEDS: Diclofenac 1% 50 GM TOPICAL GEL TP SCH (11:35)
[2024-12-11] MEDS: HYDROcodone/Acetaminophen 5/325 mg Tablet PO SCH (15:17)
[2024-12-11] MEDS: Naproxen 500 MG TAB PO SCH (21:27)
[2024-12-11] MEDS: Tamsulosin HCl 0.4 MG CAP PO SCH (21:27)
[2024-12-12 04:19] LABS: #Basophils Less than 0.03 10x3/uL (0.0-0.2); %Basophils 0.2 % (0.0-1.0); %Eosinophils 6.3 % (0.0-10.0); %Lymphocytes 18.9 % (21.0-51.0); %Monocytes 11.6 % (0.0-10.0); %Neutrophils 62.8 % (42.0-75.0); Hematocrit 26.1 % (36.0-47.0); Hemoglobin 8.4 g/dL (12.0-16.0); Mean Corpuscular HGB CONC 32.2 g/dL (32.0-36.0); Mean Corpuscular Hemoglobin 30.8 pg (27.0-31.0); Mean Corpuscular Volume 95.6 fL (78.0-98.0); Mean Platelet Volume 10.1 fL (7.4-10.4); Platelet Count 239 10x3/uL (130-400); RBC Distribution Width 14.6 % (11.5-14.5); Red Blood Cell (RBC) Count 2.73 mill/uL (4.20-5.40)
[2024-12-12 04:40] LABS: ALT (SGPT) 18 U/L (Less than 34); AST (SGOT) 23 U/L (11-34); Albumin 2.3 g/dL (3.1-4.5); Alkaline Phosphatase 61 U/L (40-110); Anion Gap 14 mmol/L (10-20); BUN (Urea Nitrogen) 20 mg/dL (9.8-20.1); Bilirubin, Total 0.1 mg/dL (0.3-1.2); Calc. Creatinine Clearance 47 mL/min (70-130); Calcium 8.2 mg/dL (7.8-10.44); Carbon Dioxide 20 mmol/L (23-31); Chloride 105 mmol/L (98-107); Estimated GFR 48; Globulin 3.1 g/dL (2.4-3.5); Glucose 129 mg/dL (83-110); Potassium 3.8 mmol/L (3.5-5.1); Protein, Total 5.4 g/dL (5.8-8.1); Sodium 135 mmol/L (136-145)
[2024-12-12] MEDS ORDERED: [UNRECOGNIZED DRUG - OTHER] PO SCH (09:00)
[2024-12-12] MEDS ORDERED: Tamsulosin HCl 0.4 MG CAP PO SCH (09:00)
[2024-12-12 13:25] VITALS: BP 100/60; TEMP 98.1
== END 2024-12-12 15:15 | DRG 872 ==
LOC: ERS 21:04 → 2SE 12-10 00:04
PROVIDERS: ADMIT Family Medicine; ATTEND Family Medicine
DX: A41.9 Sepsis, unspecified organism (principal); N39.0 Urinary tract infection, site not specified; E78.5 Hyperlipidemia, unspecified; N18.2 Chronic kidney disease, stage 2 (mild); R74.01 Elevation of levels of liver transaminase levels; I12.9 Hypertensive chronic kidney disease with stage 1 through stage 4 chronic kidney disease, or unspecified chronic kidney disease; E03.9 Hypothyroidism, unspecified; Z96.0 Presence of urogenital implants; D63.1 Anemia in chronic kidney disease; K21.9 Gastro-esophageal reflux disease without esophagitis; Z79.899 Other long term (current) drug therapy; Z86.73 Personal history of transient ischemic attack (TIA), and cerebral infarction without residual deficits; Z79.82 Long term (current) use of aspirin; Z86.711 Personal history of pulmonary embolism
CPT/HCPCS: 36415; 71045; 74177; 80053; 81001; 83605; 84145; 84484; 85025; 86141; 87040; 87077; 87086; 87186; 87428; 93005; 96374; 96375; J0696; J2185; J2272; J2405; J2470; J3370; Q9967

== ENCOUNTER 2024-12-15 10:10 | Observation (INO) | payer MEDICARE ==
[2024-12-15 11:32] LABS: #Basophils Less than 0.03 10x3/uL (0.0-0.2); %Basophils 0.2 % (0.0-1.0); %Eosinophils 1.5 % (0.0-10.0); %Lymphocytes 3.4 % (21.0-51.0); %Monocytes 3.5 % (0.0-10.0); %Neutrophils 90.8 % (42.0-75.0); Hematocrit 33.4 % (36.0-47.0); Hemoglobin 10.9 g/dL (12.0-16.0); Mean Corpuscular HGB CONC 32.6 g/dL (32.0-36.0); Mean Corpuscular Hemoglobin 30.4 pg (27.0-31.0); Mean Corpuscular Volume 93.3 fL (78.0-98.0); Mean Platelet Volume 9.9 fL (7.4-10.4); Platelet Count 333 10x3/uL (130-400); RBC Distribution Width 14.5 % (11.5-14.5); Red Blood Cell (RBC) Count 3.58 mill/uL (4.20-5.40)
[2024-12-15] MEDS ORDERED: dilTIAZem 125 MG/25 ML SDV ONE (11:50)
[2024-12-15 11:52] LABS: ALT (SGPT) 16 U/L (Less than 34); AST (SGOT) 24 U/L (11-34); Albumin 2.6 g/dL (3.1-4.5); Alkaline Phosphatase 94 U/L (40-110); Anion Gap 14 mmol/L (10-20); BUN (Urea Nitrogen) 17 mg/dL (9.8-20.1); Bilirubin, Total 0.5 mg/dL (0.3-1.2); Calc. Creatinine Clearance 0 mL/min (70-130); Calcium 9.8 mg/dL (7.8-10.44); Carbon Dioxide 23 mmol/L (23-31); Chloride 104 mmol/L (98-107); Estimated GFR 55; Glucose 109 mg/dL (83-110); Magnesium 1.9 mg/dL (1.6-2.6); Potassium 4.8 mmol/L (3.5-5.1); Protein, Total 6.6 g/dL (5.8-8.1); Sodium 136 mmol/L (136-145)
[2024-12-15 11:54] LABS: Troponin I 0.165 ng/mL (< 0.028)
[2024-12-15 12:10] LABS: Bilirubin Negative (Negative); Blood, Urine 3+ (Negative); Clarity Turbid (Clear); Glucose, Urine (Dipstick) Normal (Negative); Ketone, Urine 10 mg/dL (Negative); Leukocyte 250 Leu/uL (Negative); Nitrite Negative (Negative); Protein, Urine (Dipstick) 50 mg/dL (Neg-Trace); RBC/HPF Greater than 50 HPF (0-3); Specific Gravity, Urine 1.014 (1.002-1.036); Squamous Epithelial 0-3 HPF (0-3); Urobilinogen Normal mg/dL (Less than 2); pH, Urine 6.5 (5.0-9.0)
[2024-12-15 12:11] LABS: Bacteria/HPF 1+ HPF (None Seen)
[2024-12-15 12:13] LABS: Free T4 (Free Thyroxine) 1.02 ng/dL (0.70-1.48); Thyroid Stimulating Hormone 3.4331 uIU/mL (0.35-4.94)
[2024-12-15] MEDS ORDERED: Aspirin Chewable 81 MG TAB ONE (12:51)
[2024-12-15] MEDS ORDERED: Ondansetron ODT 4 MG TAB PO PRN (13:30)
[2024-12-15 14:10] LABS: Troponin I 0.101 ng/mL (< 0.028)
[2024-12-15 15:15] VITALS: BMI 34.1
[2024-12-15] MEDS: dilTIAZem 30 MG TAB PO SCH (15:52)
[2024-12-15] MEDS ORDERED: Metoprolol Tartrate 25 MG TAB ONE (16:08)
[2024-12-15] MEDS: Dronedarone HCl 400 MG TAB PO SCH (16:42)
[2024-12-15] MEDS: Acetaminophen 325 MG TAB PO PRN (16:42)
[2024-12-15] MEDS: Metoprolol Tartrate 25 MG TAB PO SCH (16:42)
[2024-12-15] MEDS ORDERED: Mag-Al Plus 1200/1200/120 MG (30 mL) UDCUP PO PRN (20:13)
[2024-12-15] MEDS ORDERED: Bisacodyl 5 MG TAB PO PRN (20:13)
[2024-12-15] MEDS ORDERED: Diclofenac 1% 50 GM TOPICAL GEL TP PRN (20:13)
[2024-12-15] MEDS ORDERED: Senokot S 8.6-50 MG TAB PO PRN (20:13)
[2024-12-15] MEDS ORDERED: Denosumab 60 MG/ML Vial FS SCH (20:15)
[2024-12-15] MEDS ORDERED: Loperamide HCl 2 MG CAP PO PRN (20:36)
[2024-12-15] MEDS ORDERED: Hyoscyamine SL 0.125 MG TAB PO PRN (20:37)
[2024-12-15] MEDS: Tamsulosin HCl 0.4 MG CAP PO SCH (22:02)
[2024-12-15] MEDS: Montelukast Sodium 10 mg Tablet PO SCH (22:02)
[2024-12-15] MEDS: Trospium 20 MG TAB PO SCH (22:02)
[2024-12-15] MEDS: Simethicone Chewable 80 MG TAB PO SCH (22:02)
[2024-12-15] MEDS: Melatonin 3 MG TAB PO SCH (22:02)
[2024-12-15] MEDS: Saccharomyces boulardii 250 MG CAP PO SCH (22:02)
[2024-12-15] MEDS: Dicyclomine 10 MG CAP PO SCH (22:02)
[2024-12-15] MEDS: DULoxetine 30 MG CAP PO SCH (22:02)
[2024-12-15] MEDS: Nitrofurantoin Monohyd/M-Cryst 100 MG CAP PO SCH (22:02)
[2024-12-15] MEDS: Apixaban 5 MG TAB PO SCH (22:03)
[2024-12-15] MEDS: Transdermal Patch Removal TOP SCH (22:13)
[2024-12-15] MEDS: Cefuroxime 250 MG TAB PO SCH (22:28)
[2024-12-16] MEDS: cefTRIAXone\\ROCEPHIN 1 GM in Sodium Chloride 0.9% 100 ML IVPB SCH (00:06)
[2024-12-16] MEDS: Levothyroxine Sodium 88 MCG TAB PO SCH (06:01)
[2024-12-16 07:24] LABS: #Basophils Less than 0.03 10x3/uL (0.0-0.2); %Basophils 0.2 % (0.0-1.0); %Eosinophils 3.4 % (0.0-10.0); %Lymphocytes 5.2 % (21.0-51.0); %Neutrophils 85.1 % (42.0-75.0); Hematocrit 29.9 % (36.0-47.0); Hemoglobin 9.8 g/dL (12.0-16.0); Mean Corpuscular HGB CONC 32.8 g/dL (32.0-36.0); Mean Corpuscular Hemoglobin 31.1 pg (27.0-31.0); Mean Corpuscular Volume 94.9 fL (78.0-98.0); Mean Platelet Volume 9.8 fL (7.4-10.4); Platelet Count 326 10x3/uL (130-400); RBC Distribution Width 14.5 % (11.5-14.5); Red Blood Cell (RBC) Count 3.15 mill/uL (4.20-5.40)
[2024-12-16 07:49] LABS: Anion Gap 15 mmol/L (10-20); BUN (Urea Nitrogen) 21 mg/dL (9.8-20.1); Calc. Creatinine Clearance 54 mL/min (70-130); Calcium 9.6 mg/dL (7.8-10.44); Carbon Dioxide 22 mmol/L (23-31); Chloride 107 mmol/L (98-107); Estimated GFR 56; Glucose 102 mg/dL (83-110); Potassium 5.3 mmol/L (3.5-5.1); Sodium 139 mmol/L (136-145)
[2024-12-16] MEDS: Magnesium Oxide 400 MG TAB PO SCH (08:46)
[2024-12-16] MEDS: Multivitamin W/ Minerals 1 TAB PO SCH (08:46)
[2024-12-16] MEDS: Metoprolol Tartrate 25 MG TAB PO SCH (08:46)
[2024-12-16] MEDS: Ferrous Sulfate 325 MG TAB PO SCH (08:49)
[2024-12-16] MEDS: Aspirin Chewable 81 MG TAB PO SCH (08:49)
[2024-12-16] MEDS: Atorvastatin Calcium 20 MG TAB PO SCH (08:49)
[2024-12-16] MEDS: Lidocaine 4% Patch TD SCH (08:51)
[2024-12-16] MEDS: Polyethylene Glycol 3350 17 GM Packet PO SCH (08:51)
[2024-12-16] MEDS: CO Q-10 CAPSULE 100 MG PO SCH (08:51)
[2024-12-16] MEDS ORDERED: Vibegron [Gemtesa] 75 MG Tablet PO SCH (09:00)
[2024-12-16] MEDS ORDERED: RIBOFLAVIN 50 MG PO SCH (09:00)
[2024-12-16] MEDS: HYDROcodone/Acetaminophen 5/325 mg Tablet PO PRN (12:13)
[2024-12-16 12:35] VITALS: TEMP 97.7
[2024-12-16 12:59] VITALS: BP 115/70
== END 2024-12-16 13:01 ==
LOC: ERS 10:10 → ERHOLD 13:53 → 2SE 21:00
PROVIDERS: ADMIT Student in an Organized Health Care Education/Training Program; ATTEND Student in an Organized Health Care Education/Training Program
DX: I48.91 Unspecified atrial fibrillation (principal); I26.99 Other pulmonary embolism without acute cor pulmonale; I12.9 Hypertensive chronic kidney disease with stage 1 through stage 4 chronic kidney disease, or unspecified chronic kidney disease; N18.9 Chronic kidney disease, unspecified; N39.0 Urinary tract infection, site not specified; N20.2 Calculus of kidney with calculus of ureter; M81.0 Age-related osteoporosis without current pathological fracture; E03.9 Hypothyroidism, unspecified; E78.5 Hyperlipidemia, unspecified; F03.90 Unspecified dementia, unspecified severity, without behavioral disturbance, psychotic disturbance, mood disturbance, and anxiety; R79.89 Other specified abnormal findings of blood chemistry; D63.1 Anemia in chronic kidney disease; G71.3 Mitochondrial myopathy, not elsewhere classified; J90 Pleural effusion, not elsewhere classified; K21.9 Gastro-esophageal reflux disease without esophagitis; Z90.710 Acquired absence of both cervix and uterus; Z79.890 Hormone replacement therapy; Z79.85 Long-term (current) use of injectable non-insulin antidiabetic drugs; Z79.82 Long term (current) use of aspirin; Z79.01 Long term (current) use of anticoagulants; Z79.1 Long term (current) use of non-steroidal anti-inflammatories (NSAID); Z79.899 Other long term (current) drug therapy
CPT/HCPCS: 71045; 80048; 81001; 83735; 83880; 84439; 84484 ×2; 85025; 93005; 94760; 96374; 97530; G0378 ×3; J0696; 36415; 80053; 84443

== ENCOUNTER 2024-12-17 15:12 | Emergency (ER) | payer MEDICARE | END 2024-12-17 17:18 | disposition home or self-care (01) | LOC: ERS 15:12 | DX: R55 Syncope and collapse (principal); K21.9 Gastro-esophageal reflux disease without esophagitis; I12.9 Hypertensive chronic kidney disease with stage 1 through stage 4 chronic kidney disease, or unspecified chronic kidney disease; N18.9 Chronic kidney disease, unspecified; E03.9 Hypothyroidism, unspecified; Z79.899 Other long term (current) drug therapy; Z79.82 Long term (current) use of aspirin | CPT/HCPCS: 93005; 99284 ==

== ENCOUNTER 2025-01-01 06:47 | Day surgery (SDC) | payer MEDICARE ==
[2024-12-29 13:44] VITALS: BMI 30.9
[2025-01-01] MEDS ORDERED: Iopamidol 30 ML ONE (08:58)
[2025-01-01] MEDS ORDERED: Famotidine/PF 20 mg/2ml Vial ONE (09:03)
[2025-01-01] MEDS ORDERED: fentaNYL 50 mcg/mL 1 mL Vial ONE ×2 (09:08→11:29)
[2025-01-01] MEDS ORDERED: Sodium Chloride 0.9% 100 ML ONE (09:08)
[2025-01-01] MEDS ORDERED: PROPOFOL 20 ML ONE (09:08)
[2025-01-01] MEDS ORDERED: Cefepime 1 GM VIAL ONE (09:08)
[2025-01-01] MEDS ORDERED: Lidocaine 2% PF 5 ML VIAL ONE (09:10)
[2025-01-01] MEDS ORDERED: PHENYLEPHRINE-NS 100 MCG/ML 10 ML SYRINGE ONE (09:36)
[2025-01-01] MEDS ORDERED: Dexamethasone 4 mg/ml Vial ONE (09:46)
[2025-01-01] MEDS ORDERED: Ondansetron PF 4 MG/2 ML Vial ONE (09:46)
[2025-01-01] MEDS ORDERED: ePHEDrine Sulfate 50 MG/10 ML VIAL ONE (09:53)
== END 2025-01-01 13:00 ==
LOC: SDC 06:47
PROVIDERS: ATTEND Urology
PROC: 0TC18ZZ Extirpation of Matter from Left Kidney, Via Natural or Artificial Opening Endoscopic (ICD-10-PCS; principal; 2025-01-01)
PROC: 0T778DZ Dilation of Left Ureter with Intraluminal Device, Via Natural or Artificial Opening Endoscopic (ICD-10-PCS; 2025-01-01)
DX: N20.2 Calculus of kidney with calculus of ureter (principal); I12.9 Hypertensive chronic kidney disease with stage 1 through stage 4 chronic kidney disease, or unspecified chronic kidney disease; N18.9 Chronic kidney disease, unspecified; I26.99 Other pulmonary embolism without acute cor pulmonale; E78.00 Pure hypercholesterolemia, unspecified; K21.9 Gastro-esophageal reflux disease without esophagitis; Z86.73 Personal history of transient ischemic attack (TIA), and cerebral infarction without residual deficits; Z87.59 Personal history of other complications of pregnancy, childbirth and the puerperium; Z98.41 Cataract extraction status, right eye; Z98.42 Cataract extraction status, left eye; Z90.710 Acquired absence of both cervix and uterus; Z79.899 Other long term (current) drug therapy
CPT/HCPCS: 52356; 74420; 82365; J0692; J1100; J2405; J2704; J3010; J3490; Q9967; 88300; C1747; C1769; C2617